=== PATIENT | female | born 1935 | race Caucasian/White ===

== ENCOUNTER 2019-01-17 15:35 | Observation (INO) | payer OTHER, SELFPAY ==
[2019-01-17] VITALS (10 sets, daily range): BP systolic 148–243; BP diastolic 56–118; PULSE 54–71; RESP 15–24; TEMP 36–36.8; O2SAT 91–100; BMI 24.7
--- NOTE | 2019-01-17 15:44 | DI.RAD.S_ITS ---
PROCEDURE: XR CHEST 1V INDICATIONS: confusion TECHNIQUE: One view of the chest was acquired. COMPARISON: None. FINDINGS: Surgical changes and devices: Median sternotomy changes are present. There also are postoperative changes related to previous proximal right humeral ORIF. Surgical clips at the base of the left neck are also present. There likely is part of replacement. Lungs and pleura: Slight blunting of the bilateral costophrenic angles is noted. There is no large effusion or pneumothorax. No large area of consolidation is evident. Mediastinum: Mediastinal contours appear normal. Heart size is enlarged. There is aortic atherosclerosis. Bones and chest wall: No suspicious bony lesions. The bone mineralization is diffusely decreased. Overlying soft tissues appear unremarkable. IMPRESSION: 1. Cardiomegaly without overt heart failure. No definite pneumonia. 2. Trace effusions versus scarring within the costophrenic angles. Dictated by: Kirill Real M.D. on 01/17/2019 at 15:27 Approved by: Kirill Real M.D. on 01/17/2019 at 15:29
--- NOTE | 2019-01-17 15:45 | DI.CT.S_ITS ---
PROCEDURE: CT ABDOMEN PELVIS W CON INDICATIONS: ab pain TECHNIQUE: After the administration of intravenous contrast, 5 mm thick sections acquired from the diaphragm to the symphysis. 5 mm coronal and sagittal reformats were acquired. For radiation dose reduction, the following was used: automated exposure control, adjustment of mA and/or kV according to patient size. COMPARISON: None. FINDINGS: Image quality: Excellent. ABDOMEN: Lung bases: Lung bases are clear. Small bilateral pleural effusions. Heart size is normal. Postsurgical changes compatible prior aortic valve replacement and CABG procedure. Solid organs: Liver is normal in size and enhancement. Gallbladder is within normal limits. Biliary system is non dilated. Pancreas enhances normally. Spleen is normal in size and enhancement. Punctate calcifications noted in the spleen and liver compatible sequela prior granulomatous disease. No adrenal nodules. Kidneys demonstrate normal size and enhancement, without hydronephrosis. Peritoneum and bowel: Large amount of stool noted in the rectum and distal sigmoid colon. There is mild circumferential wall thickening involving the rectum and distal sigmoid colon region of severe fecal loading compatible with stecoral colitis. No free fluid or air. Nodes and vessels: No retroperitoneal or mesenteric adenopathy by size criteria. Aorta and inferior vena cava are normal in size. Scattered atherosclerotic calcifications involving the abdominal and pelvic vasculature. Miscellaneous: No ventral hernias. PELVIS: Genitourinary: Bladder wall thickness is normal. Miscellaneous: No inguinal hernias or adenopathy. Bones: No suspicious bony lesions. No vertebral body compression fractures. Spine degenerative disc disease and facet arthropathy. IMPRESSION: 1. Severe fecal loading involving the rectum and distal sigmoid colon compatible with constipation/obstipation. 2. Mild circumferential wall thickening involving the rectum and distal sigmoid colon compatible with stecoral proctitis/colitis. 3. Small bilateral pleural effusions. Dictated by: Lynn Sigala MD, PhD on 01/17/2019 at 18:50 Approved by: Lynn Sigala MD, PhD on 01/17/2019 at 18:55
--- NOTE | 2019-01-17 15:45 | DI.CT.S_ITS ---
PROCEDURE: CT HEAD/BRAIN WO CON INDICATIONS: confusion hx cva TECHNIQUE: Noncontrast 4.5 mm thick angled axial sections acquired from the foramen magnum to the vertex, with coronal and sagittal reformats. For radiation dose reduction, the following was used: automated exposure control, adjustment of mA and/or kV according to patient size. COMPARISON: [facility], CT, HEAD WITHOUT CONTRAST, 09/07/2014, 11:11. FINDINGS: Image quality: Excellent. CSF spaces: Basal cisterns are patent. No extra-axial fluid collections. The ventricles are symmetric in size and shape. Brain: No intracranial bleeds or masses. There is moderate cerebral volume loss for age, with resultant ventricular and sulcal prominence. There are severe periventricular and deep white matter chronic small vessel ischemic changes. 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 There is intracranial internal carotid artery atherosclerosis. Skull and face: Calvarium and visualized facial bones appear intact, without suspicious lesions. Sinuses: Visualized sinuses and mastoids are clear. IMPRESSION: No acute intracranial disease process. Dictated by: Lynn Sigala MD, PhD on 01/17/2019 at 18:47 Approved by: Lynn Sigala MD, PhD on 01/17/2019 at 18:48
--- NOTE | 2019-01-17 16:47 | ED_ITS ---
HPI - Altered Mental Status General Chief Complaint: Altered Mental Status Stated Complaint: sepsis Time Seen by Provider: 01/17/19 15:40 Source: family and EMS History of Present Illness HPI narrative: Patient is 83-year-old female who has a history of 3 strokes and is a poor historian. She seems to be failing at. The family members and daughter have been caring for her and they have multiple health problems themselves. Today she presents with worsening confusion over the last 2 days. She is sent over from [facility] for evaluation. She has been complaining of some abdominal pain per the daughter. She has some pressure wounds and there was possible concern for sepsis however she is afebrile. She has a wound on her back which they have not gotten biopsy yet there is concern for possible cancer. She has no focal deficits. She continues to eat and drink normally no vomiting. She apparently was treated with antibiotics for wound on her back and then developed diarrhea. MD complaint: altered mental status and confusion Related Data Home Medications Medication Instructions Recorded Confirmed [HUMULIN N] 10 u SQ QDAY #0 06/01/10 12/31/18 acetaminophen 325 mg capsule 650 mg PO Q4H PRN 12/31/18 12/31/18 atenolol 50 mg tablet 50 mg PO DAILY 12/31/18 12/31/18 coenzyme Q10 10 10 mg capsule 10 mg PO ONCE 12/31/18 12/31/18 furosemide 20 mg tablet 20 mg PO DAILY 12/31/18 12/31/18 Allergies Allergy/AdvReac Type Severity Reaction Status Date / Time codeine Allergy Unknown Verified 01/17/19 16:47 Opioids - Morphine Analogues Allergy Unknown Verified 01/17/19 16:47 Review of Systems Constitutional Constitutional: Denies fever(s) Eyes Eyes: Denies eye discharge ENT Ears, Nose, Mouth, and Throat: Denies lip swelling and Denies tongue swelling Cardiovascular Cardiovascular: Denies chest pain and Denies dyspnea Respiratory Respiratory: Denies cough, Denies dyspnea and Denies wheezing Gastrointestinal Gastrointestinal: Reports abdominal pain and Reports diarrhea Genitourinary Genitourinary: Reports as per HPI Integumentary/Breasts Comments: Rash noted on pressure ulcer and in folds of the groin and breast Neurologic Neurologic: Reports as per HPI and Reports confusion Psychiatric Psychiatric: Reports confusion Allergic/Immunologic Allergic/Immunologic: Denies lip swelling, Denies tongue swelling and Denies wheezing Exam Initial Vital Signs Initial Vital Signs: Vital Signs Temperature 98.2 F 01/17/19 15:37 Pulse Rate 56 L 01/17/19 15:37 Respiratory Rate 16 01/17/19 15:37 Blood Pressure 148/90 H 01/17/19 15:37 Pulse Oximetry 100 01/17/19 15:37 Gen.: Pleasantly confused elderly female no acute distress HEENT: Head is atraumatic face symmetric EOMI Neck: Supple no meningeal signs Lungs: Clear bilaterally no wheezes rales or rhonchi Cardiac: Bradycardic irregular Abdomen: Mild lower abdominal tenderness no guarding no distention normal bowel sounds Extremities: No gross bony deformities no significant edema peripheral pulses intact Neurologic: Alert able to follow some simple commands baseline per family and fact they state this is more awake than she has been SKIN: Pressure ulcer noted on sacrum. She has use noted in. She does have area on her thoracic back which oozes blood and does appear cancerous. No surrounding erythema. Course Orders Ordered: ED Orders 01/17/19 15:41 EKG-12 Lead Stat 01/17/19 15:44 XR chest 1V Stat 01/17/19 15:45 CT abdomen pelvis w con Stat CT head/brain wo con Stat 01/17/19 15:48 Clostridium Difficile Tox PCR Stat 01/17/19 16:00 Acetaminophen Stat Ammonia (NH3) Stat Complete Blood Count AUTO DIFF Stat Comprehensive Metabolic Panel Stat Creatine Kinase Stat Ethanol (ETOH) Stat Lactate (Lactic Acid) Stat Partial Thromboplastin Time Stat Procalcitonin Stat Prolactin Stat Prothrombin Time INR Stat Salicylate Stat Thyroid Stimulating Hormone Stat Troponin I Stat 01/17/19 16:25 Urinalysis and Microscopic Stat Urine Culture Stat Urine Drug Screen, Rapid Stat 01/17/19 16:45 Blood Culture Stat 01/17/19 18:06 XR knee LT 1to2V Stat Sodium Chloride (Normal Saline 0.9%) 1,000 mls @ 150 mls/hr IV CONT CYNTHIA Last Admin: 01/17/19 17:29 Dose: 150 mls/hr Documented by: [email or web address] Vital Signs Vital signs: Vital Signs - 8 hr 01/17/19 15:37 01/17/19 16:30 01/17/19 17:30 Temperature 98.2 F Pulse Rate 56 L 66 59 L Respiratory Rate 16 16 16 Blood Pressure 148/90 H Blood Pressure [Left Arm] 189/108 H 214/96 H Pulse Oximetry 100 98 99 01/17/19 18:00 01/17/19 18:58 Temperature Pulse Rate 56 L 65 Respiratory Rate 17 16 Blood Pressure Blood Pressure [Left Arm] 217/56 H 167/90 H Pulse Oximetry 100 97 MDM - Altered Mental Status Lab Data Attestation: I reviewed the patient's lab results. Result diagrams: 01/17/19 16:00 01/17/19 16:00 Labs: Lab Results 01/17/19 01/17/19 01/17/19 Range/Units 16:00 16:00 16:00 WBC 6.6 (4.5-11.0) X10^3/uL RBC 4.42 (4.0-5.2) X10^6/uL Hgb 12.7 (12.0-16.0) g/dL Hct 38.1 (36-46) % MCV 86.2 (80-100) fL MCH 28.7 (26-34) PG MCHC 33.3 (30-36) % RDW 13.8 (11.6-14.8) % Plt Count 226 (150-400) X10^3/uL Neut % (Auto) 65.2 (50-75) % Lymph % (Auto) 23.6 L (25-40) % [place] % (Auto) 8.0 (3-14) % Eos % (Auto) 2.2 (2-4) % Baso % (Auto) 1.0 (0-2) % Neut # (Auto) 4300 (4341-3241) /uL Lymph # (Auto) 1600 (4212-2773) /uL [place] # (Auto) 500 (0-900) /uL Eos # (Auto) 100 (0-450) /uL Baso # (Auto) 100 (0-100) /uL PT 12.4 (10.1-12.7) SECONDS INR 1.1 (0.9-1.3) APTT 35 (26.4-36.2) SECONDS Sodium (137-145) mmol/L Potassium (3.4-5.1) mmol/L Chloride (98-107) mmol/L Carbon Dioxide (22-32) mmol/L BUN (7-17) mg/dL Creatinine (0.52-1.04) mg/dL Estimated GFR (>60) mL/min BUN/Creatinine Ratio (6-22) Glucose (80-110) mg/dL Lactate (0.7-2.1) mmol/L Calcium (8.4-10.2) mg/dL Total Bilirubin (0.2-1.3) mg/dL AST (14-36) IU/L ALT (9-52) IU/L Alkaline Phosphatase (38-126) U/L Ammonia (9-30) umol/L Total Creatine Kinase < 20 L (30-135) U/L Troponin I (0.01-0.034) ng/mL Total Protein (6.3-8.2) g/dL Albumin (3.5-5.0) g/dL Globulin (1.7-4.1) g/dL Albumin/Globulin Ratio (1.0-2.8) Procalcitonin (<0.5) ng/mL TSH (0.47-4.68) uIU/mL Prolactin (3.0-18.6) ng/mL Urine Color Urine Appearance Urine pH (4.5-8.0) Ur Specific [place] (1.000-1.035) Urine Protein (Negative) Urine Glucose (UA) (Negative) g/dL Urine Ketones (NEGATIVE) Urine Occult Blood (Negative) Urine Nitrate (Negative) Urine Bilirubin (NEGATIVE) Urine Urobilinogen (0.2) E.U./dL Ur Leukocyte Esterase (NEGATIVE) Urine RBC (0-5/HPF) Urine WBC (0-5/HPF) Ur Squamous Epith Cells (0-5/HPF) Urine Bacteria (None) Ur Culture Indicated? Salicylates (<20) mg/dL Urine Opiates Screen (Negative) Ur Oxycodone Screen (Negative) Urine Methadone Screen (Negative) Acetaminophen (10-30) ug/mL Ur Barbiturates Screen (Negative) U Tricyclic Antidepress (Negative) Ur Phencyclidine Scrn (Negative) Ur Amphetamines Screen (Negative) U Methamphetamines Scrn (Negative) Ur MDMA Scrn (Ecstasy) (Negative) U Benzodiazepines Scrn (Negative) Urine Cocaine Screen (Negative) U Marijuana (THC) Screen (Negative) Ethyl Alcohol ( - 10) mg/dL 01/17/19 01/17/19 01/17/19 Range/Units 16:00 16:00 16:00 WBC (4.5-11.0) X10^3/uL RBC (4.0-5.2) X10^6/uL Hgb (12.0-16.0) g/dL Hct (36-46) % MCV (80-100) fL MCH (26-34) PG MCHC (30-36) % RDW (11.6-14.8) % Plt Count (150-400) X10^3/uL Neut % (Auto) (50-75) % Lymph % (Auto) (25-40) % [place] % (Auto) (3-14) % Eos % (Auto) (2-4) % Baso % (Auto) (0-2) % Neut # (Auto) (2894-1507) /uL Lymph # (Auto) (8134-1395) /uL [place] # (Auto) (0-900) /uL Eos # (Auto) (0-450) /uL Baso # (Auto) (0-100) /uL PT (10.1-12.7) SECONDS INR (0.9-1.3) APTT (26.4-36.2) SECONDS Sodium 143 (137-145) mmol/L Potassium 4.0 (3.4-5.1) mmol/L Chloride 100 (98-107) mmol/L Carbon Dioxide 36 H (22-32) mmol/L BUN 28 H (7-17) mg/dL Creatinine 0.70 (0.52-1.04) mg/dL Estimated GFR > 60.0 (>60) mL/min BUN/Creatinine Ratio 40.0 H (6-22) Glucose 112 H (80-110) mg/dL Lactate 1.2 (0.7-2.1) mmol/L Calcium 9.6 (8.4-10.2) mg/dL Total Bilirubin 0.7 (0.2-1.3) mg/dL AST 15 (14-36) IU/L ALT < 6 L (9-52) IU/L Alkaline Phosphatase 119 (38-126) U/L Ammonia < 9.0 L (9-30) umol/L Total Creatine Kinase (30-135) U/L Troponin I 0.014 (0.01-0.034) ng/mL Total Protein 7.2 (6.3-8.2) g/dL Albumin 3.8 (3.5-5.0) g/dL Globulin 3.4 (1.7-4.1) g/dL Albumin/Globulin Ratio 1.1 (1.0-2.8) Procalcitonin (<0.5) ng/mL TSH (0.47-4.68) uIU/mL Prolactin 5.2 (3.0-18.6) ng/mL Urine Color Urine Appearance Urine pH (4.5-8.0) Ur Specific [place] (1.000-1.035) Urine Protein (Negative) Urine Glucose (UA) (Negative) g/dL Urine Ketones (NEGATIVE) Urine Occult Blood (Negative) Urine Nitrate (Negative) Urine Bilirubin (NEGATIVE) Urine Urobilinogen (0.2) E.U./dL Ur Leukocyte Esterase (NEGATIVE) Urine RBC (0-5/HPF) Urine WBC (0-5/HPF) Ur Squamous Epith Cells (0-5/HPF) Urine Bacteria (None) Ur Culture Indicated? Salicylates < 1.0 (<20) mg/dL Urine Opiates Screen (Negative) Ur Oxycodone Screen (Negative) Urine Methadone Screen (Negative) Acetaminophen < 10 L (10-30) ug/mL Ur Barbiturates Screen (Negative) U Tricyclic Antidepress (Negative) Ur Phencyclidine Scrn (Negative) Ur Amphetamines Screen (Negative) U Methamphetamines Scrn (Negative) Ur MDMA Scrn (Ecstasy) (Negative) U Benzodiazepines Scrn (Negative) Urine Cocaine Screen (Negative) U Marijuana (THC) Screen (Negative) Ethyl Alcohol < 10 ( - 10) mg/dL 01/17/19 01/17/19 01/17/19 Range/Units 16:00 16:00 16:25 WBC (4.5-11.0) X10^3/uL RBC (4.0-5.2) X10^6/uL Hgb (12.0-16.0) g/dL Hct (36-46) % MCV (80-100) fL MCH (26-34) PG MCHC (30-36) % RDW (11.6-14.8) % Plt Count (150-400) X10^3/uL Neut % (Auto) (50-75) % Lymph % (Auto) (25-40) % [place] % (Auto) (3-14) % Eos % (Auto) (2-4) % Baso % (Auto) (0-2) % Neut # (Auto) (5861-3313) /uL Lymph # (Auto) (7091-7651) /uL [place] # (Auto) (0-900) /uL Eos # (Auto) (0-450) /uL Baso # (Auto) (0-100) /uL PT (10.1-12.7) SECONDS INR (0.9-1.3) APTT (26.4-36.2) SECONDS Sodium (137-145) mmol/L Potassium (3.4-5.1) mmol/L Chloride (98-107) mmol/L Carbon Dioxide (22-32) mmol/L BUN (7-17) mg/dL Creatinine (0.52-1.04) mg/dL Estimated GFR (>60) mL/min BUN/Creatinine Ratio (6-22) Glucose (80-110) mg/dL Lactate (0.7-2.1) mmol/L Calcium (8.4-10.2) mg/dL Total Bilirubin (0.2-1.3) mg/dL AST (14-36) IU/L ALT (9-52) IU/L Alkaline Phosphatase (38-126) U/L Ammonia (9-30) umol/L Total Creatine Kinase (30-135) U/L Troponin I (0.01-0.034) ng/mL Total Protein (6.3-8.2) g/dL Albumin (3.5-5.0) g/dL Globulin (1.7-4.1) g/dL Albumin/Globulin Ratio (1.0-2.8) Procalcitonin < 0.05 (<0.5) ng/mL TSH 0.74 (0.47-4.68) uIU/mL Prolactin (3.0-18.6) ng/mL Urine Color Urine Appearance Urine pH (4.5-8.0) Ur Specific [place] (1.000-1.035) Urine Protein (Negative) Urine Glucose (UA) (Negative) g/dL Urine Ketones (NEGATIVE) Urine Occult Blood (Negative) Urine Nitrate (Negative) Urine Bilirubin (NEGATIVE) Urine Urobilinogen (0.2) E.U./dL Ur Leukocyte Esterase (NEGATIVE) Urine RBC (0-5/HPF) Urine WBC (0-5/HPF) Ur Squamous Epith Cells (0-5/HPF) Urine Bacteria (None) Ur Culture Indicated? Salicylates (<20) mg/dL Urine Opiates Screen Negative (Negative) Ur Oxycodone Screen Negative (Negative) Urine Methadone Screen Negative (Negative) Acetaminophen (10-30) ug/mL Ur Barbiturates Screen Negative (Negative) U Tricyclic Antidepress Negative (Negative) Ur Phencyclidine Scrn Negative (Negative) Ur Amphetamines Screen Negative (Negative) U Methamphetamines Scrn Negative (Negative) Ur MDMA Scrn (Ecstasy) Negative (Negative) U Benzodiazepines Scrn Negative (Negative) Urine Cocaine Screen Negative (Negative) U Marijuana (THC) Screen Negative (Negative) Ethyl Alcohol ( - 10) mg/dL 01/17/19 Range/Units 16:25 WBC (4.5-11.0) X10^3/uL RBC (4.0-5.2) X10^6/uL Hgb (12.0-16.0) g/dL Hct (36-46) % MCV (80-100) fL MCH (26-34) PG MCHC (30-36) % RDW (11.6-14.8) % Plt Count (150-400) X10^3/uL Neut % (Auto) (50-75) % Lymph % (Auto) (25-40) % [place] % (Auto) (3-14) % Eos % (Auto) (2-4) % Baso % (Auto) (0-2) % Neut # (Auto) (1218-7091) /uL Lymph # (Auto) (9821-9845) /uL [place] # (Auto) (0-900) /uL Eos # (Auto) (0-450) /uL Baso # (Auto) (0-100) /uL PT (10.1-12.7) SECONDS INR (0.9-1.3) APTT (26.4-36.2) SECONDS Sodium (137-145) mmol/L Potassium (3.4-5.1) mmol/L Chloride (98-107) mmol/L Carbon Dioxide (22-32) mmol/L BUN (7-17) mg/dL Creatinine (0.52-1.04) mg/dL Estimated GFR (>60) mL/min BUN/Creatinine Ratio (6-22) Glucose (80-110) mg/dL Lactate (0.7-2.1) mmol/L Calcium (8.4-10.2) mg/dL Total Bilirubin (0.2-1.3) mg/dL AST (14-36) IU/L ALT (9-52) IU/L Alkaline Phosphatase (38-126) U/L Ammonia (9-30) umol/L Total Creatine Kinase (30-135) U/L Troponin I (0.01-0.034) ng/mL Total Protein (6.3-8.2) g/dL Albumin (3.5-5.0) g/dL Globulin (1.7-4.1) g/dL Albumin/Globulin Ratio (1.0-2.8) Procalcitonin (<0.5) ng/mL TSH (0.47-4.68) uIU/mL Prolactin (3.0-18.6) ng/mL Urine Color Yellow Urine Appearance Clear Urine pH 5.5 (4.5-8.0) Ur Specific [place] 1.020 (1.000-1.035) Urine Protein Trace H (Negative) Urine Glucose (UA) Negative (Negative) g/dL Urine Ketones Negative (NEGATIVE) Urine Occult Blood Negative (Negative) Urine Nitrate Negative (Negative) Urine Bilirubin Negative (NEGATIVE) Urine Urobilinogen 0.2 (0.2) E.U./dL Ur Leukocyte Esterase Negative (NEGATIVE) Urine RBC None seen (0-5/HPF) Urine WBC None seen (0-5/HPF) Ur Squamous Epith Cells 0-1 /hpf (0-5/HPF) Urine Bacteria None seen (None) Ur Culture Indicated? Culture not indicate Salicylates (<20) mg/dL Urine Opiates Screen (Negative) Ur Oxycodone Screen (Negative) Urine Methadone Screen (Negative) Acetaminophen (10-30) ug/mL Ur Barbiturates Screen (Negative) U Tricyclic Antidepress (Negative) Ur Phencyclidine Scrn (Negative) Ur Amphetamines Screen (Negative) U Methamphetamines Scrn (Negative) Ur MDMA Scrn (Ecstasy) (Negative) U Benzodiazepines Scrn (Negative) Urine Cocaine Screen (Negative) U Marijuana (THC) Screen (Negative) Ethyl Alcohol ( - 10) mg/dL Imaging Data CT scan - head: Radiologist's impression: PROCEDURE: CT HEAD/BRAIN WO CON INDICATIONS: confusion hx cva TECHNIQUE: Noncontrast 4.5 mm thick angled axial sections acquired from the foramen magnum to the vertex, with coronal and sagittal reformats. For radiation dose reduction, the following was used: automated exposure control, adjustment of mA and/or kV according to patient size. COMPARISON: [facility], CT, HEAD WITHOUT CONTRAST, 09/07/2014, 11:11. FINDINGS: Image quality: Excellent. CSF spaces: Basal cisterns are patent. No extra-axial fluid collections. The ventricles are symmetric in size and shape. Brain: No intracranial bleeds or masses. There is moderate cerebral volume loss for age, with resultant ventricular and sulcal prominence. There are severe periventricular and deep white matter chronic small vessel ischemic changes. 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 There is intracranial internal carotid artery atherosclerosis. Skull and face: Calvarium and visualized facial bones appear intact, without suspicious lesions. Sinuses: Visualized sinuses and mastoids are clear. IMPRESSION: No acute intracranial disease process. Dictated by: Lynn Sigala MD, PhD on 01/17/2019 at 18:47 CT scan - abdomen: Radiologist's impression: PROCEDURE: CT ABDOMEN PELVIS W CON INDICATIONS: ab pain TECHNIQUE: After the administration of intravenous contrast, 5 mm thick sections acquired from the diaphragm to the symphysis. 5 mm coronal and sagittal reformats were acquired. For radiation dose reduction, the following was used: automated exposure control, adjustment of mA and/or kV according to patient size. COMPARISON: None. FINDINGS: Image quality: Excellent. ABDOMEN: Lung bases: Lung bases are clear. Small bilateral pleural effusions. Heart size is normal. Postsurgical changes compatible prior aortic valve replacement and CABG procedure. Solid organs: Liver is normal in size and enhancement. Gallbladder is within normal limits. Biliary system is non dilated. Pancreas enhances normally. Spleen is normal in size and enhancement. Punctate calcifications noted in the spleen and liver compatible sequela prior granulomatous disease. No adrenal nodules. Kidneys demonstrate normal size and enhancement, without hydronephrosis. Peritoneum and bowel: Large amount of stool noted in the rectum and distal sigmoid colon. There is mild circumferential wall thickening involving the rectum and distal sigmoid colon region of severe fecal loading compatible with stecoral colitis. No free fluid or air. Nodes and vessels: No retroperitoneal or mesenteric adenopathy by size criteria. Aorta and inferior vena cava are normal in size. Scattered atherosclerotic calcificati ons involving the abdominal and pelvic vasculature. Miscellaneous: No ventral hernias. PELVIS: Genitourinary: Bladder wall thickness is normal. Miscellaneous: No inguinal hernias or adenopathy. Bones: No suspicious bony lesions. No vertebral body compression fractures. Spine degenerative disc disease and facet arthropathy. IMPRESSION: 1. Severe fecal loading involving the rectum and distal sigmoid colon compatible with constipation/obstipation. 2. Mild circumferential wall thickening involving the rectum and distal sigmoid colon compatible with stecoral proctitis/colitis. 3. Small bilateral pleural effusions. Dictated by: Lynn Sigala MD, PhD on 01/17/2019 at 18:50 Chest x-ray: Radiologist's impression: PROCEDURE: XR CHEST 1V INDICATIONS: confusion TECHNIQUE: One view of the chest was acquired. COMPARISON: None. FINDINGS: Surgical changes and devices: Median sternotomy changes are present. There also are postoperative changes related to previous proximal right humeral ORIF. Surgical clips at the base of the left neck are also present. There likely is part of replacement. Lungs and pleura: Slight blunting of the bilateral costophrenic angles is noted. There is no large effusion or pneumothorax. No large area of consolidation is ev ident. Mediastinum: Mediastinal contours appear normal. Heart size is enlarged. There is aortic atherosclerosis. Bones and chest wall: No suspicious bony lesions. The bone mineralization is diffusely decreased. Overlying soft tissues appear unremarkable. IMPRESSION: 1. Cardiomegaly without overt heart failure. No definite pneumonia. 2. Trace effusions versus scarring within the costophrenic angles. Dictated by: Kirill Real M.D. on 01/17/2019 at 15:27 left knee: Radiologist's impression: PROCEDURE: XR KNEE LT 2V INDICATIONS: knee injury TECHNIQUE: 2 views of the knee were acquired. COMPARISON: None. FINDINGS: Bones: No fractures or dislocations. No suspicious bony lesions. Severe tricompartmental osteoarthritis. Soft tissues: No joint effusion. No suspicious soft tissue calcifications. IMPRESSION: No fracture. No acute osseous lesion. If symptoms and/or clinical suspicion for pathology persists, further assessment with repeat radiographs (7-10 days) or advanced imaging (e.g. CT, MRI or bone scan) may be helpful. Dictated by: Lynn Sigala MD, PhD on 01/17/2019 at 19:09 Approved by: Lynn Sigala MD, PhD on 01/17/2019 at 19:10 ECG Data Attestation: I personally reviewed and interpreted this ECG as follows: Interpretation: In bradycardia atrial fibrillation rate [address] changes MDM Narrative Medical decision making narrative: I have spoken with the nurse [facility] over on work assignment. They arranged for [facility] ambulance transport from [facility] to [facility] for patient to be admitted for 3 days and have long-term stay. Patient is not a direct admit. However she feels that family is equipped to care for patient any longer. They have their own health problems. At this time patient blood work and imaging does not show any acute source of worsening confusion. She seems to be okay in the emergency department. She is not toxic does not seem septic. No source or sign of infection. She does have a wound on her back which is likely cancerous. However due to her groin and yeast infection daughter states that no one is willing to biopsy a until the infection is totally cleared. The patient is overall extremely weak family unable to care for patient I spoke with hospitalist Pradeep KNIGHT who has agreed to observation. There was concern of possible C diff due to recent antibiotic and diarrhea however patient in 3 hours has not had 1 episode of diarrhea. Still awaiting for stool sample to culture. Discharge Plan Departure Patient Disposition: Admitted as Observation Clinical Impression: Altered mental status Qualifiers: Altered mental status type: unspecified Qualified Code(s): R41.82 - Altered mental status, unspecified Admit Date/Time: 01/17/19 19:18 Admit Provider: Tobias Fernández
--- NOTE | 2019-01-17 16:52 | PC.NURSE ---
1540 Contact enteric precautions initiated at this time.
--- NOTE | 2019-01-17 16:53 | PC.NURSE ---
Tina care performed, briefs changed.
[2019-01-17 16:55] LABS: Add Manual Diff / Slide Review NO; Basophils Absolute Auto 100 /uL (0-100); Eosinophils Absolute Auto 100 /uL (0-450); Eosinophils Percent Auto 2.2 % (2-4); Hematocrit 38.1 % (36-46); Hemoglobin 12.7 g/dL (12.0-16.0); Lymphocytes Absolute Auto 1600 /uL (1100-4500); Lymphocytes Percent Auto 23.6 % (25-40); Mean Corpuscular HGB Conc 33.3 % (30-36); Mean Corpuscular Hemoglobin 28.7 PG (26-34); Mean Corpuscular Volume 86.2 fL (80-100); Monocytes Absolute Auto 500 /uL (0-900); Neutrophils Absolute Auto 4300 /uL (1500-7000); Neutrophils Percent Auto 65.2 % (50-75); Platelet Count 226 X10^3/uL (150-400); Red Blood Cell Count 4.42 X10^6/uL (4.0-5.2); Red Cell Distribution Width 13.8 % (11.6-14.8); White Blood Cell Count 6.6 X10^3/uL (4.5-11.0)
[2019-01-17 16:56] LABS: INR 1.1 (0.9-1.3); Lactate (Lactic Acid) 1.2 mmol/L (0.7-2.1); Prothrombin Time 12.4 SECONDS (10.1-12.7)
[2019-01-17 16:56] LABS: Bacteria Urine None Seen; RBC Urine None Seen (0-5/HPF); WBC Urine None Seen (0-5/HPF)
[2019-01-17 16:58] LABS: Acetaminophen < 10 ug/mL (10-30); Albumin 3.8 g/dL (3.5-5.0); Albumin Globulin Ratio 1.1 (1.0-2.8); Alkaline Phosphatase 119 U/L (38-126); Ammonia (NH3) < 9.0 umol/L (9-30); Aspartate Aminotransferase 15 IU/L (14-36); Bilirubin Total 0.7 mg/dL (0.2-1.3); Blood Urea Nitrogen 28 mg/dL (7-17); Calcium 9.6 mg/dL (8.4-10.2); Carbon Dioxide 36 mmol/L (22-32); Chloride 100 mmol/L (98-107); Estimated Glomerular Filt Rate > 60.0 mL/min (>60); Ethanol (ETOH) < 10 mg/dL; Globulin 3.4 g/dL (1.7-4.1); Glucose 112 mg/dL (80-110); HEMOLYSIS < 15 (0-50); Salicylate < 1.0 mg/dL (<20); Sodium 143 mmol/L (137-145); Total Protein 7.2 g/dL (6.3-8.2)
[2019-01-17 16:59] LABS: PTT Partial Thromboplastin Tim 35 SECONDS (26.4-36.2)
[2019-01-17 17:04] LABS: Alanine Aminotransferase < 6 IU/L (9-52)
[2019-01-17 17:09] LABS: Troponin I 0.014 ng/mL (0.01-0.034)
[2019-01-17 17:10] LABS: Appearance Urine UA CLEAR; Bilirubin Urine UA NEGATIVE (NEGATIVE); Color Urine UA YELLOW; Glucose Urine UA NEGATIVE (Negative); Ketones Urine UA NEGATIVE (NEGATIVE); Leukocyte Esterase Urine UA NEGATIVE (NEGATIVE); Nitrite Urine UA NEGATIVE (Negative); Occult Blood Urine UA NEGATIVE (Negative); Protein Urine UA TRACE (Negative); Urobilinogen Urine UA 0.2 E.U./dL (0.2)
[2019-01-17 17:14] LABS: Urine Amphetamines Negative (Negative); Urine Barbiturates Negative (Negative); Urine Benzodiazepines Negative (Negative); Urine Cocaine Negative (Negative); Urine MDMA Negative (Negative); Urine Methadone Negative (Negative); Urine Methamphetamines Negative (Negative); Urine Morphine/Opi cutoff 2000 Negative (Negative); Urine Oxycodone Negative (Negative); Urine Phencyclidine Negative (Negative); Urine Tetrahydrocannabinol Negative (Negative); Urine Tricyclic Antidepressant Negative (Negative); pH Urine UA 5.5 (4.5-8.0)
[2019-01-17 17:14] LABS: Prolactin 5.2 ng/mL (3.0-18.6)
[2019-01-17] MEDS: SODIUM CHLORIDE 0.9% 1,000 ML 150 ML IV (17:29)
[2019-01-17 17:40] LABS: Creatine Kinase < 20 U/L (30-135)
[2019-01-17 17:59] LABS: Squamous Epithelial Cell Urine 0-1 /HPF (0-5/HPF)
--- NOTE | 2019-01-17 18:06 | DI.RAD.S_ITS ---
PROCEDURE: XR KNEE LT 2V INDICATIONS: knee injury TECHNIQUE: 2 views of the knee were acquired. COMPARISON: None. FINDINGS: Bones: No fractures or dislocations. No suspicious bony lesions. Severe tricompartmental osteoarthritis. Soft tissues: No joint effusion. No suspicious soft tissue calcifications. IMPRESSION: No fracture. No acute osseous lesion. If symptoms and/or clinical suspicion for pathology persists, further assessment with repeat radiographs (7-10 days) or advanced imaging (e.g. CT, MRI or bone scan) may be helpful. Dictated by: Lynn Sigala MD, PhD on 01/17/2019 at 19:09 Approved by: Lynn Sigala MD, PhD on 01/17/2019 at 19:10
[2019-01-17 18:09] LABS: Procalcitonin < 0.05 ng/mL (<0.5)
[2019-01-17 18:12] LABS: Thyroid Stimulating Hormone 0.74 uIU/mL (0.47-4.68)
[2019-01-17] MEDS: MINERAL OIL 1 EACH ENEMA PR (20:42)
[2019-01-17] MEDS: DOCUSATE 100 MG CAPSULE PO (20:42)
--- NOTE | 2019-01-17 21:25 | PC.ADMIT ---
Admission Note: The patient,Mary Casiano,83 y/o, was given written information regarding hospital policies, unit procedures and contact persons. Patient's smoking status: Never smoker. Vital Signs - 8 hr 01/17/19 15:37 01/17/19 16:30 01/17/19 17:30 Temperature 98.2 F Pulse Rate 56 L 66 59 L Respiratory Rate 16 16 16 Blood Pressure 148/90 H Blood Pressure [Left Arm] 189/108 H 214/96 H Pulse Oximetry 100 98 99 01/17/19 18:00 01/17/19 18:58 01/17/19 19:40 Temperature Pulse Rate 56 L 65 54 L Respiratory Rate 17 16 16 Blood Pressure 167/79 H Blood Pressure [Left Arm] 217/56 H 167/90 H Pulse Oximetry 100 97 99 01/17/19 20:33 Temperature 96.8 F L Pulse Rate 68 Respiratory Rate 17 Blood Pressure 243/95 H Blood Pressure [Left Arm] Pulse Oximetry 94 Pt arrived from ED via stretcher at approx 2000, sliderboard used to trans to bed. Pt oriented to self and hospital. Reports her arms hurt when BP cuff is inflated. BP on monitor elevated at 243/95. Unable to obtain manual BP. Draining Lesion to back noted, photos taken and Foam drsg applied. Rash to Groin, periarea, gluteal cleft and lower back noted. Provider away of all findings. Brief changed, enema given. Bed alarm on. Oriented to call system. Door open for close monitoring. Dtr to return to help with admission questions.
[2019-01-17] MEDS: SODIUM CHLORIDE 0.45% 1,000 ML 50 ML IV (22:14)
[2019-01-17] MEDS: LISINOPRIL 10 MG TABLET PO (22:14)
--- NOTE | 2019-01-17 23:09 | DI.CT.S_ITS ---
PROCEDURE: CT ANGIO HEAD AND NECK INDICATIONS: Altered mental status, prior CVA TECHNIQUE: Pre-contrast 4.5 mm thick sections acquired from the foramen magnum to the vertex. After the administration of intravenous contrast, 1 mm thick sections acquired from the aortic arch through the [place] of [place]. Post-contrast 4.5 mm thick sections then re-acquired from the foramen magnum to the vertex. 3-dimensional lbxccfq-xjrllyuzi-peofugkceh (MIP) and/or volume rendering reformats were acquired of the central intracranial vasculature and neck separately. COMPARISON: None. FINDINGS: Image quality: Excellent. BRAIN: CSF spaces: Ventricles are normal in size and shape. Basal cisterns are patent. No extra-axial fluid collections. Brain: No midline shift. No intracranial bleeds or masses. [place]-white matter interface appears intact. Scattered small white matter signal changes, probably represent chronic microvascular ischemic disease, versus statistically less likely demyelination or other infectious, inflammatory, neurodegenerative etiology, technically nonspecific. Skull and face: Calvarium and facial bones appear intact, without suspicious lesions. Orbits appear normal. Sinuses: Sinuses and mastoids are clear. HEAD CT ANGIOGRAPHY: Anterior circulation: Intracranial internal carotid arteries are normal in size and flow. The flow within the paired anterior cerebral arteries is normal and symmetric. Hypoplastic left A1 segment. The flow within the middle cerebral arteries is normal and symmetric. The anterior communicating artery is seen. No aneurysms are seen. Posterior circulation: Visualized portions of the vertebral arteries and basilar artery appear patent. Bilateral posterior communicating artery as noted. Flow within the posterior cerebral arteries is normal and symmetric. No aneurysms are seen. NECK CT ANGIOGRAPHY: Carotid system: The great vessels demonstrate a conventional anatomy as they arise from the aortic arch. The origins of the common carotid arteries appear patent. The common carotid arteries demonstrate normal caliber and courses. Numerous surgical clips in the region of the left ICA which partially obscure the vessel. There appears to be approximately 50% narrowing of the proximal left ICA however this is partially obscured by streak artifact from clips. 50% right ICA stenosis. Right carotid atherosclerosis Posterior circulation: The origins of the vertebral arteries both appear widely patent. Vertebral arteries appear patent. Mildly dominant appearance of the right vertebral artery. They join to form a normal appearing basilar artery. Soft tissues: Visualized neck soft tissues demonstrate no suspicious abnormalities. Bones: No suspicious bony lesions. Visualized cervical spine appears normally aligned. IMPRESSION: No definite focal intracranial stenosis or occlusion. Less than 50% right ICA stenosis which could be further confirmed with dedicated carotid ultrasound. Suboptimal evaluation of the left ICA. There appears to be at least 50% focal stenosis involving the proximal segment, partially obscured by streak artifact from clips. Any quantitative measurements of stenosis were performed using NASCET criteria. Dictated by: Kamron Warren M.D. on 01/18/2019 at 21:16 Approved by: Kamron Warren M.D. on 01/18/2019 at 21:25
--- NOTE | 2019-01-17 23:10 | PM.HP.1 ---
History of Present Illness History of Present Illness Date Patient Seen: 01/17/19 Time Patient Seen: 20:16 Chief complaint: sepsis Narrative: Ms. Mary Casiano is an 83-year-old female with a history significant for atrial fibrillation, hypertension, type 2 diabetes on insulin, history of polio, prior CVA and malignant melanoma who presents to the hospital with altered mental status. History is obtained from the patient's daughters the patient is unable to contribute meaningful information and is oriented to self only. Per the daughter the patient had rather abrupt change in her health and mental status 3 days ago. The daughter describes increased confusion with hallucinations, weakness, labile blood pressure that has been markedly elevated and slow heart rate down as low as the 40s. The daughter is concerned related to sepsis and concern for possible C difficile since the patient has been having diarrhea and was on antibiotic 1 month ago for what appears to be a cancerous skin lesion on her back. Patient lives at with her and the daughter providing care and has previously been on hospice apparently related to deteriorating cardiac status but she improved is now receiving care from [facility] 2 times weekly. The patient does complain of a frontal headache and has pain over left upper back the location of her skin lesion. She denies fevers or chills, chest pain, shortness of breath, abdominal pain, nausea vomiting. The patient has been essentially bed-bound per the daughter and over the last 3 days has been nonambulatory. In the ER upon arrival the patient is found to be afebrile with temperature of 98.2?, blood pressure 148/90, heart rate of 56 in atrial fibrillation with respirations 16 saturating 100% on air. While in the ER the patient has had labile blood pressures up to 214/97 returning back to the 160s. Patient underwent a head CT which found no acute intracranial processes S well as an abdominal CT which found severe constipation with obstipation proctitis colitis. Chest x-ray was obtained which found cardiomyopathy without evidence pulmonary congestion or heart failure with no infiltrates. EKG is atrial fibrillation with a ventricular rate of 52 marked left axis deviation, left ventricular hypertrophy, with Q-waves in the anterior V leads as well as his 3 nerve consistent with anterior and inferior [place]. The patient does appear to have mild ST to depression in V5 and 6. On laboratory analysis she has normal white count 6.6, hemoglobin of 12.5 and hematocrit 38.1 and platelets of 226. Her electrolytes are within normal rib limits however her BUN is 28 with a creatinine 0.7 nonfasting glucose 112. Her coags within normal limits and urinalysis negative she has a negative procalcitonin less than 0.05 and a lactate of 1.2. She has a troponin of 0.014 and a normal TSH of 0.74. Her LFTs and ammonia are all within normal limits. The patient is admitted for further evaluation of altered mental status. Patient History Medical History (Updated 01/17/19 @ 23:31 by ANTONIA Alfonso) Diabetes (Chronic) HTN (hypertension) (Chronic) Melanoma (Acute) Polio (Acute) Stroke (Resolved) Surgical History (Updated 01/17/19 @ 23:31 by ANTONIA Alfonso) Heart valve replaced (Acute) History of carotid endarterectomy (Resolved) Hx of eye surgery (Resolved) Hx of heart bypass surgery (Resolved) Hx of shoulder surgery (Resolved) Family History Mother Cancer Father No problems noted. Sister No problems noted. Social History marital status: household members: spouse occupational status: previously employed Smoking Status: Never smoker alcohol intake: never substance use type: does not use Family & Social History Family History Mother Cancer Father No problems noted. Sister No problems noted. Social History: household members spouse Safety & Behavioral: Feels Safe in Current Yes Environment Been Physically Hurt or No Threatened By a Person Suicidal Ideation Description None Tobacco & Substance use: Smoking Status Never smoker alcohol intake never alcohol intake frequency 0-2 drinks per day Substance Use Type does not use Comment: The patient currently lives in a single family 2 story home with her who is her primary caregiver with assistance from his daughter and home health 2 days per week. Smoking: Patient has never smoked Alcohol: Patient has never consumed alcohol. Substance use: Patient use only vitamin supplements. Advanced directives: The daughter believes advanced directives are on file with the patient's primary care physician. The patient is altered to the extent she is not able to make decisions on her resuscitation status therefore her daughter who is her designated spokesperson indicates the patient's wish is to be FULL CODE. Patient's daughter and her are surrogate decision makers. Meds Home Medications and Allergies Home Medications Medication Instructions Recorded Confirmed Type [HUMULIN N] 10 u SQ QDAY #0 06/01/10 01/17/19 History acetaminophen 325 mg capsule 650 mg PO Q4H PRN 12/31/18 01/17/19 History atenolol 50 mg tablet 50 mg PO DAILY 12/31/18 01/17/19 History coenzyme Q10 10 10 mg capsule 10 mg PO ONCE 12/31/18 01/17/19 History furosemide 20 mg tablet 20 mg PO DAILY 12/31/18 01/17/19 History Allergies Allergy/AdvReac Type Severity Reaction Status Date / Time codeine Allergy Unknown Verified 01/17/19 16:47 Opioids - Morphine Analogues Allergy Unknown Verified 01/17/19 16:47 Review of Systems Review of Systems ROS Unobtainable: All systems reviewed & are unremarkable except as noted in HPI and below and unobtainable due to mental status (Patient's daughter provides health information) Exam Vital Signs (past 8 hours): - 01/17/19 15:37 01/17/19 16:30 01/17/19 17:30 Temperature 98.2 F Pulse Rate 56 L 66 59 L Respiratory Rate 16 16 16 Blood Pressure 148/90 H Blood Pressure [Left Arm] 189/108 H 214/96 H Pulse Oximetry 100 98 99 01/17/19 18:00 01/17/19 18:58 01/17/19 19:40 Temperature Pulse Rate 56 L 65 54 L Respiratory Rate 17 16 16 Blood Pressure 167/79 H Blood Pressure [Left Arm] 217/56 H 167/90 H Pulse Oximetry 100 97 99 01/17/19 20:33 01/17/19 21:42 01/17/19 22:01 Temperature 96.8 F L Pulse Rate 68 71 Respiratory Rate 17 16 Blood Pressure 243/95 H 208/118 H Blood Pressure [Left Arm] Pulse Oximetry 94 93 99 Oxygen Delivery Method Room Air Oxygen Flow Rate 0 Narrative Exam Narrative: GENERAL APPEARANCE: well developed, adequately nourished, verbal impoverished, flat affect, in no distress HEENT: Left facial droop, PERRLA, conjunctiva clear, EOMs intact without nystagmus, no sinus tenderness to percussion, no rhinorrhea, mucous membranes are moist and pink without lesions or exudate. NECK/THYROID: neck supple, no JVD, no carotid bruit, no thyromegaly, trachea midline. LYMPH NODES: no cervical or supraclavicular lymphadenopathy. SKIN: [place] warm and dry, 2.5 cm beefy red and oozing skin mass left upper back, 1 cm lesion mid chest, 1 cm keratotic lesion right thigh. HEART: regular rate and rhythm, S1-S2, 3/6 systolic murmur, brisk capillary refill, trace bilateral pedal edema LUNGS: clear to auscultation bilaterally, no coarseness crackles or wheezing, no cough present CHEST: Symmetrical movement, no accessory muscle use, no pain to AP and lateral compression. ABDOMEN: round, firm, no abdominal pain elicited on palpation, no guarding or peritoneal signs, no organomegaly, no flank or suprapubic tenderness, active bowel tones. BACK: 2.5 cm beefy red oozing skin lesion left upper back, tender to palpation EXTREMITIES: strength is 3/5 bilateral upper extremities and 2/5 bilateral lower extremities and appears symmetrical, no deformities or joint effusions. NEUROLOGIC: AAO to self only, left facial droop, unable to hold either leg up, slow movement of upper extremities, vision tracks bilaterally, no apparent dysarthria, difficulty following commands, sensory exam intact. PSYCH: Somnolent, impoverished speech, poor eye contact, flat affect Objective Labs Result Diagrams: 01/17/19 16:00 01/17/19 16:00 Labs: Laboratory Results - last 24 hr 01/17/19 01/17/19 01/17/19 16:00 16:00 16:00 WBC 6.6 RBC 4.42 Hgb 12.7 Hct 38.1 MCV 86.2 MCH 28.7 MCHC 33.3 RDW 13.8 Plt Count 226 Neut % (Auto) 65.2 Lymph % (Auto) 23.6 L [place] % (Auto) 8.0 Eos % (Auto) 2.2 Baso % (Auto) 1.0 Neut # (Auto) 4300 Lymph # (Auto) 1600 [place] # (Auto) 500 Eos # (Auto) 100 Baso # (Auto) 100 PT 12.4 INR 1.1 APTT 35 Sodium Potassium Chloride Carbon Dioxide BUN Creatinine Estimated GFR BUN/Creatinine Ratio Glucose Lactate Calcium Total Bilirubin AST ALT Alkaline Phosphatase Ammonia Total Creatine Kinase < 20 L Troponin I Total Protein Albumin Globulin Albumin/Globulin Ratio Procalcitonin TSH Prolactin Urine Color Urine Appearance Urine pH Ur Specific [place] Urine Protein Urine Glucose (UA) Urine Ketones Urine Occult Blood Urine Nitrate Urine Bilirubin Urine Urobilinogen Ur Leukocyte Esterase Urine RBC Urine WBC Ur Squamous Epith Cells Urine Bacteria Ur Culture Indicated? Salicylates Urine Opiates Screen Ur Oxycodone Screen Urine Methadone Screen Acetaminophen Ur Barbiturates Screen U Tricyclic Antidepress Ur Phencyclidine Scrn Ur Amphetamines Screen U Methamphetamines Scrn Ur MDMA Scrn (Ecstasy) U Benzodiazepines Scrn Urine Cocaine Screen U Marijuana (THC) Screen Ethyl Alcohol 01/17/19 01/17/19 01/17/19 16:00 16:00 16:00 WBC RBC Hgb Hct MCV MCH MCHC RDW Plt Count Neut % (Auto) Lymph % (Auto) [place] % (Auto) Eos % (Auto) Baso % (Auto) Neut # (Auto) Lymph # (Auto) [place] # (Auto) Eos # (Auto) Baso # (Auto) PT INR APTT Sodium 143 Potassium 4.0 Chloride 100 Carbon Dioxide 36 H BUN 28 H Creatinine 0.70 Estimated GFR > 60.0 BUN/Creatinine Ratio 40.0 H Glucose 112 H Lactate 1.2 Calcium 9.6 Total Bilirubin 0.7 AST 15 ALT < 6 L Alkaline Phosphatase 119 Ammonia < 9.0 L Total Creatine Kinase Troponin I 0.014 Total Protein 7.2 Albumin 3.8 Globulin 3.4 Albumin/Globulin Ratio 1.1 Procalcitonin TSH Prolactin 5.2 Urine Color Urine Appearance Urine pH Ur Specific [place] Urine Protein Urine Glucose (UA) Urine Ketones Urine Occult Blood Urine Nitrate Urine Bilirubin Urine Urobilinogen Ur Leukocyte Esterase Urine RBC Urine WBC Ur Squamous Epith Cells Urine Bacteria Ur Culture Indicated? Salicylates < 1.0 Urine Opiates Screen Ur Oxycodone Screen Urine Methadone Screen Acetaminophen < 10 L Ur Barbiturates Screen U Tricyclic Antidepress Ur Phencyclidine Scrn Ur Amphetamines Screen U Methamphetamines Scrn Ur MDMA Scrn (Ecstasy) U Benzodiazepines Scrn Urine Cocaine Screen U Marijuana (THC) Screen Ethyl Alcohol < 10 01/17/19 01/17/19 01/17/19 16:00 16:00 16:25 WBC RBC Hgb Hct MCV MCH MCHC RDW Plt Count Neut % (Auto) Lymph % (Auto) [place] % (Auto) Eos % (Auto) Baso % (Auto) Neut # (Auto) Lymph # (Auto) [place] # (Auto) Eos # (Auto) Baso # (Auto) PT INR APTT Sodium Potassium Chloride Carbon Dioxide BUN Creatinine Estimated GFR BUN/Creatinine Ratio Glucose Lactate Calcium Total Bilirubin AST ALT Alkaline Phosphatase Ammonia Total Creatine Kinase Troponin I Total Protein Albumin Globulin Albumin/Globulin Ratio Procalcitonin < 0.05 TSH 0.74 Prolactin Urine Color Urine Appearance Urine pH Ur Specific [place] Urine Protein Urine Glucose (UA) Urine Ketones Urine Occult Blood Urine Nitrate Urine Bilirubin Urine Urobilinogen Ur Leukocyte Esterase Urine RBC Urine WBC Ur Squamous Epith Cells Urine Bacteria Ur Culture Indicated? Salicylates Urine Opiates Screen Negative Ur Oxycodone Screen Negative Urine Methadone Screen Negative Acetaminophen Ur Barbiturates Screen Negative U Tricyclic Antidepress Negative Ur Phencyclidine Scrn Negative Ur Amphetamines Screen Negative U Methamphetamines Scrn Negative Ur MDMA Scrn (Ecstasy) Negative U Benzodiazepines Scrn Negative Urine Cocaine Screen Negative U Marijuana (THC) Screen Negative Ethyl Alcohol 01/17/19 16:25 WBC RBC Hgb Hct MCV MCH MCHC RDW Plt Count Neut % (Auto) Lymph % (Auto) [place] % (Auto) Eos % (Auto) Baso % (Auto) Neut # (Auto) Lymph # (Auto) [place] # (Auto) Eos # (Auto) Baso # (Auto) PT INR APTT Sodium Potassium Chloride Carbon Dioxide BUN Creatinine Estimated GFR BUN/Creatinine Ratio Glucose Lactate Calcium Total Bilirubin AST ALT Alkaline Phosphatase Ammonia Total Creatine Kinase Troponin I Total Protein Albumin Globulin Albumin/Globulin Ratio Procalcitonin TSH Prolactin Urine Color Yellow Urine Appearance Clear Urine pH 5.5 Ur Specific [place] 1.020 Urine Protein Trace H Urine Glucose (UA) Negative Urine Ketones Negative Urine Occult Blood Negative Urine Nitrate Negative Urine Bilirubin Negative Urine Urobilinogen 0.2 Ur Leukocyte Esterase Negative Urine RBC None seen Urine WBC None seen Ur Squamous Epith Cells 0-1 /hpf Urine Bacteria None seen Ur Culture Indicated? Culture not indicate Salicylates Urine Opiates Screen Ur Oxycodone Screen Urine Methadone Screen Acetaminophen Ur Barbiturates Screen U Tricyclic Antidepress Ur Phencyclidine Scrn Ur Amphetamines Screen U Methamphetamines Scrn Ur MDMA Scrn (Ecstasy) U Benzodiazepines Scrn Urine Cocaine Screen U Marijuana (THC) Screen Ethyl Alcohol Assessment & Plan Assessment & Plan narrative: This is an 83-year-old female patient who was admitted to the hospital related to altered mental status occurring over the last 3 days with confusion, disorientation and hallucinations, progressive weakness, labile blood pressure with pressures up into 200s, atrial fibrillation with heart rate. 1. Acute altered mental status, present on admission, active -multiple potential etiologies, differential diagnosis: -history prior CVA, left facial droop, unclear if new versus residual from prior CVA. Patient complains of headache. -patient has heart valve and is unable to undergo MRI, will obtain CTA with adequate renal function with a creatinine of 0.7 -patient with poor oral intake and appears dehydrated with a BUN of 28 creatinine of 0.7, sodium is normal at 143. -gently rehydrate with history of cardiomyopathy, 1/2 normal saline at 50 cc/hour. -confusion may be related to elevated blood pressures, hypertensive urgency, presence of headache. Blood pressure exceeding stroke limit of 220/110. -continue patient's routine atenolol currently dosed at 25 mg twice daily. Monitor for persistent bradycardia. -will add lisinopril 10 mg daily. -will track blood pressures. -no evidence of sepsis with a normal white count of 6.6, lactate of 1.2, procalcitonin of less than 0.05, urinalysis negative and chest x-ray is clear. -GI PCR panel is ordered, blood cultures are drawn. 2. Diabetes type 2 insulin dependent, controlled, active -patient's blood sugar on admission was 112. No reports of hypoglycemia or hyperglycemia at home. -blood sugar checks a.c. and HS -low range correctional insulin. -moderate constant carbohydrate diet. 3. Chronic hypertension, present on admission, active -Blood pressure exceeding stroke limit of 220/110. -continue patient's routine atenolol currently dosed at 25 mg twice daily. Monitor for persistent bradycardia. -will add lisinopril 10 mg daily. -hydralazine 10 mg IV every 6 hours as needed SBP greater than 180 -will track blood pressures. 4. Prior history CV, active -unclear the patient's left facial droop is new or residual from prior event. -patient is not been on anticoagulation aspirin 325 mg x1 now -start aspirin 81 mg daily -PT and OT to evaluate treat -speech therapy to evaluate and treat 5. Fungating skin lesion upper back, present on admission, active -beefy red 2.5 cm bleeding raced mass lesion. -will request General surgery consult for biopsy and excision. -no evidence of possible metastases if found cancerous with negative abdominal and head CT as well as chest x-ray. The patient is admitted to the hospital related to risk of complications and adverse events. She requires ongoing monitoring and interventions with further evaluation. The patient is admitted as observation with expected length of stay to be less than 2 midnights. Scores GCS [place] coma scale eye opening: Spontaneous [place] coma scale verbal response: Confused [place] coma scale motor response: Obey commands [place] coma scale total score: 14
[2019-01-18] VITALS (14 sets, daily range): BP systolic 142–190; BP diastolic 57–93; PULSE 47–65; RESP 12–20; TEMP 36.3–36.5; O2SAT 94–100
[2019-01-18] MEDS: ASPIRIN EC 325 MG TABLET PO (00:25)
[2019-01-18] MEDS: NYSTATIN CREAM 30 GM 1 APPLIC TOP ×3 (00:26→21:17)
[2019-01-18] MEDS: METOPROLOL IR 25 MG TABLET PO (00:26)
[2019-01-18] MEDS: BISACODYL 10 MG SUPP PR (05:42)
--- NOTE | 2019-01-18 06:32 | PC.NURSE ---
Pt admitted with altered mental status, GLF, obstipation,. Hx CVA x3 with left side face droop, DM2 on insulin, and malignant melanoma. Pt with large oozing mass on left upper back, now covered with Allevyn, con't to ooze. Another non oozing lesion of mid chest that is brown and hard in appearance. Infectious panel negative. Large rash, reddened skin to front and back porsche area, nystatin cream applied. Pt had enema last shaquille, suppository given overnight, need GI stool panel sample. Pt refuses SCDs, it hurts even on night mode. Pt in AFib with rate of 37-62, provider aware. Pt on cardiac meds. HTN up to 201/101, provider ordered PRN hydralazine for SBP >180. None given overnight. Daughter in room. Pt with fragile skin, turn q1hr. Left heel pink, not blanchable and present on admit. Pt able to shift body weight some to assist with turns. In enteric isolation as CDiff rule out, had recent course of antibiotics. Pt does not have her dentures with her.
--- NOTE | 2019-01-18 08:05 | P.PN_ITS ---
Subjective Subjective Date Patient Seen: 01/18/19 Time Patient Seen: 13:42 Interval history: She is seen today to follow up the stroke symptoms and the necrotic skin lesions. Physical therapy and other therapies are planning to work with her today. She is also pending a CTA of the head. There is quite a bit of confusion about her code status, discussed today. Her apparently wants her to be full code, her daughter wants her to be partial code and the patient indicated to the surgeon today that she did not want aggressive life saving measures. I did not have a chance to ask her those questions and she was not engaging with me during my visit with her today. Exam Vital Signs (past 8 hours): - 01/18/19 01:00 01/18/19 03:05 01/18/19 05:00 Temperature 97.5 F L Pulse Rate 51 L Respiratory Rate 20 Blood Pressure 190/80 H Pulse Oximetry 100 100 100 01/18/19 05:36 Temperature Pulse Rate 54 L Respiratory Rate Blood Pressure 146/93 H Pulse Oximetry Oxygen Delivery Method Nasal Cannula Oxygen Flow Rate 2 Narrative Exam Narrative: She is not engaged. She does have her eyes open, looking blankly around. Her daughter reassures me that she is ?quite smart,? but I am unclear as to what she is really capable of at baseline. On the left upper back is a red/purple lesion suggesting neoplasm. Heart is regular rate and rhythm without murmur. Lungs are clear to auscultation bilaterally. Extremities have no ankle edema. Objective Labs Result Diagrams: 01/17/19 16:00 01/17/19 16:00 Labs: Laboratory Results - last 24 hr 01/17/19 01/17/19 01/17/19 16:00 16:00 16:00 WBC 6.6 RBC 4.42 Hgb 12.7 Hct 38.1 MCV 86.2 MCH 28.7 MCHC 33.3 RDW 13.8 Plt Count 226 Neut % (Auto) 65.2 Lymph % (Auto) 23.6 L Walker % (Auto) 8.0 Eos % (Auto) 2.2 Baso % (Auto) 1.0 Neut # (Auto) 4300 Lymph # (Auto) 1600 Walker # (Auto) 500 Eos # (Auto) 100 Baso # (Auto) 100 PT 12.4 INR 1.1 APTT 35 Sodium Potassium Chloride Carbon Dioxide BUN Creatinine Estimated GFR BUN/Creatinine Ratio Glucose Lactate Calcium Total Bilirubin AST ALT Alkaline Phosphatase Ammonia Total Creatine Kinase < 20 L Troponin I Total Protein Albumin Globulin Albumin/Globulin Ratio Procalcitonin TSH Prolactin Urine Color Urine Appearance Urine pH Ur Specific [place] Urine Protein Urine Glucose (UA) Urine Ketones Urine Occult Blood Urine Nitrate Urine Bilirubin Urine Urobilinogen Ur Leukocyte Esterase Urine RBC Urine WBC Ur Squamous Epith Cells Urine Bacteria Ur Culture Indicated? Salicylates Urine Opiates Screen Ur Oxycodone Screen Urine Methadone Screen Acetaminophen Ur Barbiturates Screen U Tricyclic Antidepress Ur Phencyclidine Scrn Ur Amphetamines Screen U Methamphetamines Scrn Ur MDMA Scrn (Ecstasy) U Benzodiazepines Scrn Urine Cocaine Screen U Marijuana (THC) Screen Ethyl Alcohol 01/17/19 01/17/19 01/17/19 16:00 16:00 16:00 WBC RBC Hgb Hct MCV MCH MCHC RDW Plt Count Neut % (Auto) Lymph % (Auto) Walker % (Auto) Eos % (Auto) Baso % (Auto) Neut # (Auto) Lymph # (Auto) Walker # (Auto) Eos # (Auto) Baso # (Auto) PT INR APTT Sodium 143 Potassium 4.0 Chloride 100 Carbon Dioxide 36 H BUN 28 H Creatinine 0.70 Estimated GFR > 60.0 BUN/Creatinine Ratio 40.0 H Glucose 112 H Lactate 1.2 Calcium 9.6 Total Bilirubin 0.7 AST 15 ALT < 6 L Alkaline Phosphatase 119 Ammonia < 9.0 L Total Creatine Kinase Troponin I 0.014 Total Protein 7.2 Albumin 3.8 Globulin 3.4 Albumin/Globulin Ratio 1.1 Procalcitonin TSH Prolactin 5.2 Urine Color Urine Appearance Urine pH Ur Specific [place] Urine Protein Urine Glucose (UA) Urine Ketones Urine Occult Blood Urine Nitrate Urine Bilirubin Urine Urobilinogen Ur Leukocyte Esterase Urine RBC Urine WBC Ur Squamous Epith Cells Urine Bacteria Ur Culture Indicated? Salicylates < 1.0 Urine Opiates Screen Ur Oxycodone Screen Urine Methadone Screen Acetaminophen < 10 L Ur Barbiturates Screen U Tricyclic Antidepress Ur Phencyclidine Scrn Ur Amphetamines Screen U Methamphetamines Scrn Ur MDMA Scrn (Ecstasy) U Benzodiazepines Scrn Urine Cocaine Screen U Marijuana (THC) Screen Ethyl Alcohol < 10 01/17/19 01/17/19 01/17/19 16:00 16:00 16:25 WBC RBC Hgb Hct MCV MCH MCHC RDW Plt Count Neut % (Auto) Lymph % (Auto) Walker % (Auto) Eos % (Auto) Baso % (Auto) Neut # (Auto) Lymph # (Auto) Walker # (Auto) Eos # (Auto) Baso # (Auto) PT INR APTT Sodium Potassium Chloride Carbon Dioxide BUN Creatinine Estimated GFR BUN/Creatinine Ratio Glucose Lactate Calcium Total Bilirubin AST ALT Alkaline Phosphatase Ammonia Total Creatine Kinase Troponin I Total Protein Albumin Globulin Albumin/Globulin Ratio Procalcitonin < 0.05 TSH 0.74 Prolactin Urine Color Urine Appearance Urine pH Ur Specific [place] Urine Protein Urine Glucose (UA) Urine Ketones Urine Occult Blood Urine Nitrate Urine Bilirubin Urine Urobilinogen Ur Leukocyte Esterase Urine RBC Urine WBC Ur Squamous Epith Cells Urine Bacteria Ur Culture Indicated? Salicylates Urine Opiates Screen Negative Ur Oxycodone Screen Negative Urine Methadone Screen Negative Acetaminophen Ur Barbiturates Screen Negative U Tricyclic Antidepress Negative Ur Phencyclidine Scrn Negative Ur Amphetamines Screen Negative U Methamphetamines Scrn Negative Ur MDMA Scrn (Ecstasy) Negative U Benzodiazepines Scrn Negative Urine Cocaine Screen Negative U Marijuana (THC) Screen Negative Ethyl Alcohol 01/17/19 16:25 WBC RBC Hgb Hct MCV MCH MCHC RDW Plt Count Neut % (Auto) Lymph % (Auto) Walker % (Auto) Eos % (Auto) Baso % (Auto) Neut # (Auto) Lymph # (Auto) Walker # (Auto) Eos # (Auto) Baso # (Auto) PT INR APTT Sodium Potassium Chloride Carbon Dioxide BUN Creatinine Estimated GFR BUN/Creatinine Ratio Glucose Lactate Calcium Total Bilirubin AST ALT Alkaline Phosphatase Ammonia Total Creatine Kinase Troponin I Total Protein Albumin Globulin Albumin/Globulin Ratio Procalcitonin TSH Prolactin Urine Color Yellow Urine Appearance Clear Urine pH 5.5 Ur Specific [place] 1.020 Urine Protein Trace H Urine Glucose (UA) Negative Urine Ketones Negative Urine Occult Blood Negative Urine Nitrate Negative Urine Bilirubin Negative Urine Urobilinogen 0.2 Ur Leukocyte Esterase Negative Urine RBC None seen Urine WBC None seen Ur Squamous Epith Cells 0-1 /hpf Urine Bacteria None seen Ur Culture Indicated? Culture not indicate Salicylates Urine Opiates Screen Ur Oxycodone Screen Urine Methadone Screen Acetaminophen Ur Barbiturates Screen U Tricyclic Antidepress Ur Phencyclidine Scrn Ur Amphetamines Screen U Methamphetamines Scrn Ur MDMA Scrn (Ecstasy) U Benzodiazepines Scrn Urine Cocaine Screen U Marijuana (THC) Screen Ethyl Alcohol Assessment & Plan Assessment & Plan narrative: This is an 83-year-old female patient who was admitted to the hospital related to altered mental status occurring over the last 3 days with confusion, disorientation and hallucinations, progressive weakness, labile blood pressure with pressures up into 200s, atrial fibrillation. 1. Acute altered mental status, present on admission, active -multiple potential etiologies, differential diagnosis: -history prior CVA, left facial droop, unclear if new versus residual from prior CVA. Patient stated headache. -patient has a mechanical heart valve and is unable to undergo MRI, so CTA pending today, with adequate renal function with a creatinine of 0.7 -patient with poor oral intake and appearing dehydrated with a BUN of 28 creatinine of 0.7, sodium is normal at 143. -gently rehydrate with history of cardiomyopathy, 1/2 normal saline at 50 cc/hour. -confusion may be related to elevated blood pressures, hypertensive urgency, presence of headache. Blood pressure exceeding stroke limit of 220/110. -holding atenolol due to persistent atrial fibrillation with slow juan tricular response in the 40-50s range -will continue lisinopril 10 mg daily. -will track blood pressures while holding atenolol.. -no evidence of sepsis with a normal white count of 6.6, lactate of 1.2, procalcitonin of less than 0.05, urinalysis negative and chest x-ray is clear. -GI PCR panel is negative, blood cultures are pending. 2. Diabetes type 2 insulin dependent, controlled, active -patient's blood sugar on admission was 112. No reports of hypoglycemia or hyperglycemia at home. -blood sugar checks a.c. and HS -low range correctional insulin. -moderate constant carbohydrate diet. 3. Chronic hypertension, present on admission, active -Blood pressure exceeding stroke limit of 220/110. -patient's routine atenolol currently dosed at 25 mg twice daily will need to be held due to bradycardia. EKG done for possible junctional rhythm appears to show atrial fibrillation with slow ventricular response.. -continue new lisinopril 10 mg daily. -hydralazine 10 mg IV every 6 hours as needed SBP greater than 180 -will track blood pressures and HR. 4. Prior history CV, active -unclear the patient's left facial droop is new or residual from prior event. -patient has not been on anticoagulation -started aspirin 81 mg daily -PT and OT are following, evaluate and treat -speech therapy are following, evaluate and treat 5. Necrotic skin lesion upper back, present on admission, active -beefy red 2.5 cm bleeding slightly raised mass lesion. -General surgery consult for biopsy and excision, with procedure planned for tomorrow. -no evidence of possible metastases if found cancerous with negative abdominal and head CT as well as chest x-ray. Disposition. Family are requesting skull nursing facility placement.
[2019-01-18] MEDS: DOCUSATE 100 MG CAPSULE PO ×2 (09:30→21:13)
[2019-01-18] MEDS: ASPIRIN EC 81 MG TABLET PO (09:30)
[2019-01-18] MEDS: ATENOLOL 50 MG TABLET 25 MG PO (09:31)
[2019-01-18 10:15] LABS: Adenovirus F 40/41 Not Detected (Not Detect); Astrovirus Not Detected (Not Detect); Campylobacter Not Detected (Not Detect); Clostridium difficile toxin AB Not Detected (Not Detect); Cryptosporidium Not Detected (Not Detect); Cyclospora cayetanensis Not Detected (Not Detect); Entamoeba histolytica Not Detected (Not Detect); Enteroaggregative E.coli Not Detected (Not Detect); Enteropathogenic E.coli Not Detected (Not Detect); Enterotoxigenic E.coli It/st Not Detected (Not Detect); Giardia lamblia Not Detected (Not Detect); Norovirus GI/GII Not Detected (Not Detect); Plesiomonsa shigelloides Not Detected (Not Detect); Rotavirus A Not Detected (Not Detect); Salmonella Not Detected (Not Detect); Shiga-like toxin-prod E.coli Not Detected (Not Detect); Shigella/Enteroinvasive E.coli Not Detected (Not Detect); Vibrio Not Detected (Not Detect); Vibrio cholerae Not Detected (Not Detect); Yersinia enterocolitica Not Detected (Not Detect)
[2019-01-18] MEDS: INSULIN ASPART 100 UNIT/ML INSULN PEN SUBCUT ×3 (12:12→21:13)
--- NOTE | 2019-01-18 12:15 | PM.CN ---
History of Present Illness Consult details Date Patient Seen: 01/18/19 Time Patient Seen: 12:16 Chief complaint: sepsis Reason for consult: Skin lesions Requesting provider: Yevgeniy Jain Narrative: Patient is a woman I saw in the office for skin lesions. I would plan to excise these in the office under local anesthetic. However the patient is now admitted with worsening mental status changes. Cause not clear. I was asked to see her regarding these lesions. [facility] Medical History Diabetes (Chronic) HTN (hypertension) (Chronic) Melanoma (Acute) Polio (Acute) Stroke (Resolved) Surgical History Heart valve replaced (Acute) History of carotid endarterectomy (Resolved) Hx of eye surgery (Resolved) Hx of heart bypass surgery (Resolved) Hx of shoulder surgery (Resolved) Family History Mother Cancer Father No problems noted. Sister No problems noted. Social History marital status: household members: spouse occupational status: previously employed Smoking Status: Never smoker alcohol intake: never substance use type: does not use Family History Mother Cancer Father No problems noted. Sister No problems noted. Social History marital status: household members: spouse occupational status: previously employed Smoking Status: Never smoker alcohol intake: never substance use type: does not use Meds Home Medications and Allergies Home Medications Medication Instructions Recorded Confirmed Type [HUMULIN N] 10 u SQ QDAY #0 06/01/10 01/17/19 History acetaminophen 325 mg capsule 650 mg PO Q4H PRN 12/31/18 01/17/19 History atenolol 50 mg tablet 50 mg PO DAILY 12/31/18 01/17/19 History coenzyme Q10 10 10 mg capsule 10 mg PO ONCE 12/31/18 01/17/19 History furosemide 20 mg tablet 20 mg PO DAILY 12/31/18 01/17/19 History Allergies Allergy/AdvReac Type Severity Reaction Status Date / Time codeine Allergy Unknown Verified 01/17/19 16:47 Opioids - Morphine Analogues Allergy Unknown Verified 01/17/19 16:47 Review of Systems Review of Systems Narrative: Unobtainable. Please see notes from admitting physician regarding changes that may have occurred. Exam Vital Signs (past 8 hours): - 01/18/19 05:00 01/18/19 05:36 01/18/19 08:00 Temperature 97.4 F L Pulse Rate 54 L 55 L Respiratory Rate 12 Blood Pressure 146/93 H 142/81 H Pulse Oximetry 100 99 01/18/19 09:00 01/18/19 10:45 01/18/19 12:00 Temperature 97.7 F Pulse Rate 58 L Respiratory Rate 14 Blood Pressure 158/57 H Pulse Oximetry 97 99 96 Fraction of Inspired Oxygen 24 Oxygen Delivery Method Nasal Cannula Oxygen Flow Rate 1 Narrative Exam Narrative: Very little change since I saw her in the office. She responds to her name and appears to understand what is said to her. She seems to respond to yes or no questions by a shaking her head. But she can't really answer any questions any useful manner and it is impossible to know if the yes no head movements are appropriate to the questions asked. Patient has decreased breath sounds in the bases. Heart is regular. She has a large open skin lesion on her shoulder, 1 on her mid chest which is much smaller and a tag on her thigh that becomes ulcerated. Objective Labs Result Diagrams: 01/17/19 16:00 01/17/19 16:00 Labs: Laboratory Results - last 24 hr 01/17/19 01/17/19 01/17/19 16:00 16:00 16:00 WBC 6.6 RBC 4.42 Hgb 12.7 Hct 38.1 MCV 86.2 MCH 28.7 MCHC 33.3 RDW 13.8 Plt Count 226 Neut % (Auto) 65.2 Lymph % (Auto) 23.6 L [place] % (Auto) 8.0 Eos % (Auto) 2.2 Baso % (Auto) 1.0 Neut # (Auto) 4300 Lymph # (Auto) 1600 [place] # (Auto) 500 Eos # (Auto) 100 Baso # (Auto) 100 PT 12.4 INR 1.1 APTT 35 Sodium Potassium Chloride Carbon Dioxide BUN Creatinine Estimated GFR BUN/Creatinine Ratio Glucose Lactate Calcium Total Bilirubin AST ALT Alkaline Phosphatase Ammonia Total Creatine Kinase < 20 L Troponin I Total Protein Albumin Globulin Albumin/Globulin Ratio Procalcitonin TSH Prolactin Urine Color Urine Appearance Urine pH Ur Specific [place] Urine Protein Urine Glucose (UA) Urine Ketones Urine Occult Blood Urine Nitrate Urine Bilirubin Urine Urobilinogen Ur Leukocyte Esterase Urine RBC Urine WBC Ur Squamous Epith Cells Urine Bacteria Ur Culture Indicated? Stl C. cayetanensis PCR Stool Rotavirus (PCR) Stool Adenovirus (PCR) Stool Astrovirus (PCR) Stool Cryptosporidium PCR Stl E.coli Shiga Tox PCR St Sh/Enteroin Ecoli PCR Stool E coli O157 PCR Stl Enterotoxigenic E PCR Stool EPEC (PCR) Stl E. histolytica PCR Stool Giardia Lamblia PCR Stl P. shigelloides PCR St Y.enterocolitica PCR Stool Vibrio (PCR) Stl Vibrio cholerae PCR Stl Enteroaggr Ecoli PCR Stl Norovirus GI/GII PCR Salicylates Urine Opiates Screen Ur Oxycodone Screen Urine Methadone Screen Acetaminophen Ur Barbiturates Screen U Tricyclic Antidepress Ur Phencyclidine Scrn Ur Amphetamines Screen U Methamphetamines Scrn Ur MDMA Scrn (Ecstasy) U Benzodiazepines Scrn Urine Cocaine Screen U Marijuana (THC) Screen Ethyl Alcohol Campylobacter (PCR) C. difficile Tox (PCR) Salmonella (PCR) 01/17/19 01/17/19 01/17/19 16:00 16:00 16:00 WBC RBC Hgb Hct MCV MCH MCHC RDW Plt Count Neut % (Auto) Lymph % (Auto) [place] % (Auto) Eos % (Auto) Baso % (Auto) Neut # (Auto) Lymph # (Auto) [place] # (Auto) Eos # (Auto) Baso # (Auto) PT INR APTT Sodium 143 Potassium 4.0 Chloride 100 Carbon Dioxide 36 H BUN 28 H Creatinine 0.70 Estimated GFR > 60.0 BUN/Creatinine Ratio 40.0 H Glucose 112 H Lactate 1.2 Calcium 9.6 Total Bilirubin 0.7 AST 15 ALT < 6 L Alkaline Phosphatase 119 Ammonia < 9.0 L Total Creatine Kinase Troponin I 0.014 Total Protein 7.2 Albumin 3.8 Globulin 3.4 Albumin/Globulin Ratio 1.1 Procalcitonin TSH Prolactin 5.2 Urine Color Urine Appearance Urine pH Ur Specific [place] Urine Protein Urine Glucose (UA) Urine Ketones Urine Occult Blood Urine Nitrate Urine Bilirubin Urine Urobilinogen Ur Leukocyte Esterase Urine RBC Urine WBC Ur Squamous Epith Cells Urine Bacteria Ur Culture Indicated? Stl C. cayetanensis PCR Stool Rotavirus (PCR) Stool Adenovirus (PCR) Stool Astrovirus (PCR) Stool Cryptosporidium PCR Stl E.coli Shiga Tox PCR St Sh/Enteroin Ecoli PCR Stool E coli O157 PCR Stl Enterotoxigenic E PCR Stool EPEC (PCR) Stl E. histolytica PCR Stool Giardia Lamblia PCR Stl P. shigelloides PCR St Y.enterocolitica PCR Stool Vibrio (PCR) Stl Vibrio cholerae PCR Stl Enteroaggr Ecoli PCR Stl Norovirus GI/GII PCR Salicylates < 1.0 Urine Opiates Screen Ur Oxycodone Screen Urine Methadone Screen Acetaminophen < 10 L Ur Barbiturates Screen U Tricyclic Antidepress Ur Phencyclidine Scrn Ur Amphetamines Screen U Methamphetamines Scrn Ur MDMA Scrn (Ecstasy) U Benzodiazepines Scrn Urine Cocaine Screen U Marijuana (THC) Screen Ethyl Alcohol < 10 Campylobacter (PCR) C. difficile Tox (PCR) Salmonella (PCR) 01/17/19 01/17/19 01/17/19 16:00 16:00 16:25 WBC RBC Hgb Hct MCV MCH MCHC RDW Plt Count Neut % (Auto) Lymph % (Auto) [place] % (Auto) Eos % (Auto) Baso % (Auto) Neut # (Auto) Lymph # (Auto) [place] # (Auto) Eos # (Auto) Baso # (Auto) PT INR APTT Sodium Potassium Chloride Carbon Dioxide BUN Creatinine Estimated GFR BUN/Creatinine Ratio Glucose Lactate Calcium Total Bilirubin AST ALT Alkaline Phosphatase Ammonia Total Creatine Kinase Troponin I Total Protein Albumin Globulin Albumin/Globulin Ratio Procalcitonin < 0.05 TSH 0.74 Prolactin Urine Color Urine Appearance Urine pH Ur Specific [place] Urine Protein Urine Glucose (UA) Urine Ketones Urine Occult Blood Urine Nitrate Urine Bilirubin Urine Urobilinogen Ur Leukocyte Esterase Urine RBC Urine WBC Ur Squamous Epith Cells Urine Bacteria Ur Culture Indicated? Stl C. cayetanensis PCR Stool Rotavirus (PCR) Stool Adenovirus (PCR) Stool Astrovirus (PCR) Stool Cryptosporidium PCR Stl E.coli Shiga Tox PCR St Sh/Enteroin Ecoli PCR Stool E coli O157 PCR Stl Enterotoxigenic E PCR Stool EPEC (PCR) Stl E. histolytica PCR Stool Giardia Lamblia PCR Stl P. shigelloides PCR St Y.enterocolitica PCR Stool Vibrio (PCR) Stl Vibrio cholerae PCR Stl Enteroaggr Ecoli PCR Stl Norovirus GI/GII PCR Salicylates Urine Opiates Screen Negative Ur Oxycodone Screen Negative Urine Methadone Screen Negative Acetaminophen Ur Barbiturates Screen Negative U Tricyclic Antidepress Negative Ur Phencyclidine Scrn Negative Ur Amphetamines Screen Negative U Methamphetamines Scrn Negative Ur MDMA Scrn (Ecstasy) Negative U Benzodiazepines Scrn Negative Urine Cocaine Screen Negative U Marijuana (THC) Screen Negative Ethyl Alcohol Campylobacter (PCR) C. difficile Tox (PCR) Salmonella (PCR) 01/17/19 01/18/19 16:25 08:20 WBC RBC Hgb Hct MCV MCH MCHC RDW Plt Count Neut % (Auto) Lymph % (Auto) [place] % (Auto) Eos % (Auto) Baso % (Auto) Neut # (Auto) Lymph # (Auto) [place] # (Auto) Eos # (Auto) Baso # (Auto) PT INR APTT Sodium Potassium Chloride Carbon Dioxide BUN Creatinine Estimated GFR BUN/Creatinine Ratio Glucose Lactate Calcium Total Bilirubin AST ALT Alkaline Phosphatase Ammonia Total Creatine Kinase Troponin I Total Protein Albumin Globulin Albumin/Globulin Ratio Procalcitonin TSH Prolactin Urine Color Yellow Urine Appearance Clear Urine pH 5.5 Ur Specific [place] 1.020 Urine Protein Trace H Urine Glucose (UA) Negative Urine Ketones Negative Urine Occult Blood Negative Urine Nitrate Negative Urine Bilirubin Negative Urine Urobilinogen 0.2 Ur Leukocyte Esterase Negative Urine RBC None seen Urine WBC None seen Ur Squamous Epith Cells 0-1 /hpf Urine Bacteria None seen Ur Culture Indicated? Culture not indicate Stl C. cayetanensis PCR Not detected Stool Rotavirus (PCR) Not detected Stool Adenovirus (PCR) Not detected Stool Astrovirus (PCR) Not detected Stool Cryptosporidium PCR Not detected Stl E.coli Shiga Tox PCR Not detected St Sh/Enteroin Ecoli PCR Not detected Stool E coli O157 PCR Not detected Stl Enterotoxigenic E PCR Not detected Stool EPEC (PCR) Not detected Stl E. histolytica PCR Not detected Stool Giardia Lamblia PCR Not detected Stl P. shigelloides PCR Not detected St Y.enterocolitica PCR Not detected Stool Vibrio (PCR) Not detected Stl Vibrio cholerae PCR Not detected Stl Enteroaggr Ecoli PCR Not detected Stl Norovirus GI/GII PCR Not detected Salicylates Urine Opiates Screen Ur Oxycodone Screen Urine Methadone Screen Acetaminophen Ur Barbiturates Screen U Tricyclic Antidepress Ur Phencyclidine Scrn Ur Amphetamines Screen U Methamphetamines Scrn Ur MDMA Scrn (Ecstasy) U Benzodiazepines Scrn Urine Cocaine Screen U Marijuana (THC) Screen Ethyl Alcohol Campylobacter (PCR) Not detected C. difficile Tox (PCR) Not detected Salmonella (PCR) Not detected Assessment & Plan Assessment & Plan narrative: Multiple skin lesions that are chronic and may represent malignancy with hypertrophic granulation tissue. While she is hospitalized will take to the operating room to excise. I have discussed this in her presence with her daughter and by phone. They are agreeable as they were at the time of her office visit to have these removed. They want me leave the thigh lesion to the my discretion but the other 2 they would definitely like removed
--- NOTE | 2019-01-18 14:52 | CM.DANOTE ---
Addendum entered by Brittny Bailey 01/18/19 15:10: Faxed clinicals to [facility] per protocol. Confirmation of fax received. GLENN Original Note: DCP/Assessment: Reviewed chart. Patient is a 83yr old female admitted to [facility] under OBS status with altered mental status. PCP listed is Dr. Bacon. Primary payor is 1)[facility] 2)Self-pay. Met with patient and daughter/Lary at bedside explained CM/ role. Patient's spouse/Earl on speaker phone during assessment. Daughter reports that patient resides with spouse and daughter in [place], [place]. Spouse has been primary caregiver for patient for several years. Patient with h/o previous CVA's. Patient drowsy at time of assessment and does not participate. Daughter reports that patient has not ambulated with device for approximately 7-8 months. Patient relies on spouse/family to transfer to/from chair and bed. Patient currently on service with [facility]. Daughter and spouse confirm that they have been working with patient specifically on mobility but it has been a slow process. Family interested in patient going to SNF for short period of time to obtain daily therapy. Spouse reports that patient can cognitively follow commands and comprehend what is being taught. PT/OT and ST evaluations are currently pending. Both daughter and spouse made aware that patient will need to qualify and that authorization will need to be obtained from [facility] for short SNF stay. They would like CM team to proceed. First SNF choice is [facility]. SENIOR BUDGET ANALYST placed call to October at [facility] requesting that she evaluate. Will contact [facility] on Saturday01-19-19. Family also report that patient has multiple skin lesions on her back. One, that family report is bleeding most of the time. Patient has been seen as outpatient by surgery and the plan has been to have them removed with biopsy. Spoke with Dr. Jain re: the family's concerns. He will discuss with them and order surgery consult if he feels necessary during hospitalization. P: Anticipate d/c to SNF for rehabilitation if patient qualifies and authorization can be obtained from [facility] vs. Home with resume HH with [facility]. JANIE Sheets Discharge Planning/Care Management CM Discharge Assessment Start: 01/18/19 14:29 Freq: Status: Active Protocol: Document 01/18/19 14:29 GLENN (Rec: 01/18/19 14:52 [facility] [id number]) Discharge Planning Assessment Assigned [employer] Bak[employer] Clerk JANIE Sheets Contact Information Earl Casiano (spouse)[phone] Advance Directives? Yes History Provided By Patient,Family Member, Significant Other,Medical Record Prior Living Arrangements House Household Members spouse Type of transporation used prior to Relies on Others admit Independent with ADL's No: Needs assist with all ADL' s. Is patient alert and oriented? No: Per family not currently. Caregiver for Another No Community Services used prior to Physical Therapy,Occupational admission: Therapy,Home Health Aid,Home Health Nurse Comment [facility] prior to admit. DME Already Rented / Owned [facility] / [facility] Patient/Family Preference Nursing Home Facility Discharge Plan Nursing Home Facility Referrals Initiated Nursing Home If patient plan is SNF: Has PASSR been No completed? Comment OBS status from time of admit. Medicare Choice List Provided Yes SNF/HH Preference [facility] Contact Name/Phone October [phone] Has Agency SNF been contacted Yes Whiteboard Updated in Patient Room with Yes name and ext. # of Deli Bakery Clerk Review Status In Process Next Review Type Continued Stay Review
--- NOTE | 2019-01-18 16:32 | PT.IIE ---
Current Diagnoses Type 2 diabetes mellitus without complications (01/17/19) Altered mental status, unspecified (01/17/19) Surgical History (Last Reviewed 01/18/19 @ 12:17 by Alon Ray MD) Heart valve replaced (Acute) History of carotid endarterectomy (Resolved) Hx of eye surgery (Resolved) Hx of heart bypass surgery (Resolved) Hx of shoulder surgery (Resolved) Medical History (Last Reviewed 01/18/19 @ 12:17 by Alon Ray MD) Diabetes (Chronic) HTN (hypertension) (Chronic) Melanoma (Acute) Polio (Acute) Stroke (Resolved) Physical Therapy Inpatient Evaluation/Re-Eval M1 PT/OT-IP Prior Functional Status Start: 01/18/19 12:30 Freq: NEEDED Status: Active Protocol: Document 01/18/19 16:02 AW (Rec: 01/18/19 16:32 AW [id number]) Medical Review Prior Functional Status Medical History Reviewed Yes Diet/Fluid Consistency Regular Communication Pt able to follow one-step commands Mobility and Gait Per SW note, family reports pt has not ambulated at all in the past 7-8 months. She is dependent on her spouse, daughter, other caregivers for transfers Activities of Daily Living and IADL's Unable to obtain from patient or from EMR review. Social History Household Members spouse,children Living Arrangements House Number of Stairs To Enter/Railing? Unable to obtain from patient or from EMR review Additional Social History Comment Unable to obtain this information. Pt unable to respond. Will need to follow up when family available M2 PT-IP Current Condition Start: 01/18/19 12:30 Freq: NEEDED Status: Active Protocol: Document 01/18/19 16:02 AW (Rec: 01/18/19 16:32 AW [id number]) Physical Therapy Current Condition Current Condition Evaluation Date 01/18/19 Treatment Diagnosis altered mental status, impaired bed mobility, transfers, gait Weight Bearing Status Weight Bearing Status Full Weight Bearing M3 PT-IP Subjective Start: 01/18/19 12:30 Freq: NEEDED Status: Active Protocol: Document 01/18/19 16:02 AW (Rec: 01/18/19 16:32 AW [id number]) Subjective Physical Therapy Visit Type Type Initial Evaluation Visit Start Time 15:40 Visit Stop Time 15:59 Total Visit Minutes 19 Number of NETWORK SYSTEMS ANALYST Visits 0 Physical Therapy Visit Comments Patient Comments Pt able to respond to yes/no questions with head nods and unintelligble phonation. Patient Goals Unable to ascertain Therapy Pain Assessment Pain When Pain Assessed During Mobility Pain Present Pain Present Unable to Respond FLACC Pain Scale Face Occasional grimace/frown Legs Uneasy, restless, tense Activity Quiet, moves easily Cry No cry (awake or asleep) Consolability Reassurable with touch FLACC Total 3 M4 PT-IP Mobility and Gait Start: 01/18/19 12:30 Freq: NEEDED Status: Active Protocol: Document 01/18/19 16:02 AW (Rec: 01/18/19 16:32 AW [id number]) PT-Bed Mobility Assessment Rolling Type of Rolling Roll to Right,Roll to Left Level of Assist Minimal Assistance Supine to Sit Supine to Sit Moderate Assistance,1 Person Assistance,Head of Bed Elevated,Bedrails Sit to Supine Sit to Supine Moderate Assistance,1 Person Assistance,Head of Bed Elevated,Bedrails Scooting Scooting to Edge of Bed Minimal Assistance Scooting Up and Down in Bed Minimal Assistance PT-Transfer Assessment Comments Mobility Comments Pt required min to mod assist for all bed mobility, including transfer to dangling legs at edge of bed. She refused any attempt to stand, but was willing to sit EOB ~3 minutes PT-Balance Assessment Sitting Balance and Reactions Static Sitting Balance Ability Good Dynamic Sitting Balance Ability Fair M5 PT-IP Objective Assessments Start: 01/18/19 12:30 Freq: NEEDED Status: Active Protocol: Document 01/18/19 16:02 AW (Rec: 01/18/19 16:32 AW [id number]) Orientation Orientation/Cognition Level of Alertness Confusional State Language Function Ability Garbled Speech Safety Awareness Decreased Safety Awareness Gross Range of Motion Upper Extremity ROM Assessment Bilaterally Impaired Impairments Shoulder elevation limited bilaterally, ~110 degrees on the right, 90 degrees on the left Lower Extremity ROM Assessment Bilaterally Impaired Strength Upper Extremity Strength Assessment Bilaterally Impaired Lower Extremity Strength Assessment Bilaterally Impaired Comments Strength Comments Pt was able to follow simple commands for manual muscle testing. BLE grossly 3+/5 in al major muscle groups Coordination Assessment Gross Coordination Gross Coordination WNL Sensation Assessment Comments Sensation Comments Unable to assess Muscle Tone Muscle Tone WNL Yes M6 PT-IP Treatment Start: 01/18/19 12:30 Freq: NEEDED Status: Active Protocol: Document 09/08/19 16:02 AW (Rec: 01/18/19 16:32 AW [id number]) Physical Therapy Treatment Education Education Provided Safety M7 PT-IP Assessment and Plan Start: 01/18/19 12:30 Freq: NEEDED Status: Active Protocol: Document 01/18/19 16:02 AW (Rec: 01/18/19 16:32 AW [id number]) PT Summary Assessment and Plan Potential Rehabilitation Potential Fair Status of Condition at Evaluation Evolving Summary Impairments Pain,ROM,Strength,Cognition, Bed Mobility,Transfers,Gait, Activity Tolerance Assessment Summary Drea is an 83 yo woman with history of CVA's who lives with her and daughter. Her has been her primary caregiver. According to [employer] notes, pt has been unable to ambulate with any assistive device for at least 7-8 months and she has been dependent on her caregivers for transfers. On exam, she is markedly weak, has a left- sided facial droop, no tongue deviation, and is confused, unable to communicate well. It is unclear whether these deficits are residual from previous CVA's or are new. She required min to mod assist for all bed mobility, was able to sit edge of bed for ~3 minutes, but then refused any attempt to stand secondary to weakness. She was willing to work the PT and would likely be able to advance mobility to work on transfers. PT recommends SNF rehab to work on transfers and attempt gait with appropriate assistive device once medically cleared for discharge Goals Bed Mobility Goal Standby Assistance Transfer Goal Contact Guard Assistance Gait Goal Minimal Assistance Gait Distance 10 Days to Meet Goals 20 Frequency of Treatment Frequency Of Treatment Once a Day Treatment Plan Physical Therapy Treatment Plan Bed Mobility Training,Transfer Training,Gait Training, Therapeutic Exercise,Balance Retraining,Post Op Education, Discharge Planning,Hot or Cold Pack,Neuromuscular Re-ed, Coordination Retraining,Manual Therapy Other Recommendations and Next Treatment continue to work on bed Focus mobility to increase independence, attempt standing Recommendations To Nursing Amount of Assist Needed 1 Person Assist,2 Person Assist Discharge Recommendations PT Discharge Recommendations SNF Rehab
[2019-01-18 19:21] LABS: BUN Creatinine Ratio 35.7 (6-22); Blood Urea Nitrogen 25 mg/dL (7-17); Calcium 9.2 mg/dL (8.4-10.2); Carbon Dioxide 30 mmol/L (22-32); Chloride 100 mmol/L (98-107); Estimated Glomerular Filt Rate > 60.0 mL/min (>60); Glucose 204 mg/dL (80-110); HEMOLYSIS 16 (0-50); Potassium 4.3 mmol/L (3.4-5.1); Sodium 138 mmol/L (137-145)
[2019-01-18] MEDS: ACETAMINOPHEN 325 MG TABLET 650 MG PO (21:13)
--- NOTE | 2019-01-18 22:42 | PC.NURSE ---
Assumed care of pt at 1500. Pt resting in bed during bedside hand-off report. Loose stools this shift changed briefs frequently. Applying Nystatin cream to rash. At approx [address] room stating pt needs repeat GFR prior to CT scan. Provider Notified. Once lab complete pt off unit for CT, shortly returned to Room. Per float RN new IV inserted by ED RN prior to CT. At approx 2200 Pt c/o sob, chest pain and throat pain. This proposal writer assessed pt. Sats 100% RA. R.T. was making rounds and assessed pt as well. Pt stated the symptoms resolved within a few minutes.
[2019-01-18] MEDS: SODIUM CHLORIDE 0.45% 1,000 ML 50 ML IV (23:02)
[2019-01-19] VITALS (22 sets, daily range): BP systolic 125–208; BP diastolic 53–103; PULSE 41–84; RESP 14–22; TEMP 36.1–37.2; O2SAT 96–100; BMI 25.5
--- NOTE | 2019-01-19 | PATH_ITS ---
[facility] Accession Number: [id number] . 01 Material submitted: . PART A: back - LEFT SIDED, MID UPPER BACK PART B: thigh - RIGHT THIGH . 01 Clinical history: . A: LESION: MEDIAL=SHORT, SUPERIOR=LONG B: SKIN TAG . 01 Diagnosis: A. Left Side, Mid Upper Back, Lesion, Excision: Basal cell carcinoma nodular and infiltrative-type. Surgical margins: Peripheral and deep margins are negative for carcinoma. . B. Right Thigh Lesion, Excision: Nevus lipomatosus superficialis. Negative for malignancy. [facility] 01/21/2019 1710 Local . 01 Comment: As part of ongoing quality analyst, a selected slide (A13) is also reviewed by dermatopathologist, Dr. Diana Maldonado, who agrees with the interpretation. . 01 Electronically signed: . Clari Jay MD, Pathologist NPI- [id number] . 01 Gross description: . (A) Received in formalin, labeled mid upper back, left-sided lesion, is an ellipse of olvera-white smooth shiny skin with underlying tissue (3.8 cm 12 o'clock to 6 o'clock, 6.7 cm 9 o'clock to 3 o'clock, 0.8 cm superficial to deep) oriented with two black sutures (long-superior, short-medial). The sutures are redesignated as long-12 o'clock and short-3 o'clock by the pathologist's geological survey field assistant for grossing purposes. A brown-escobar irregular crusted over lesion (2.7 x 2.3 x 0.3 cm) is located 0.4 cm from the 12 o'clock, 2.0 cm from the 3 o'clock, 0.3 cm from the 6 o'clock, and 2.5 cm from the 9 o'clock resection margins. Ink code: yellow-9 o'clock to 12 o'clock; blue-12 o'clock to 3 o'clock; black-3 o'clock to 6 o'clock to 9 o'clock. The ellipse is serially sectioned into 16 slices 9 o'clock to 3 o'clock, and submitted as follows: (A1) 9 o'clock and 3 o'clock tips/slices 1 and 16; (A2) slices 2 and 3; (A3) slice 4; (A4) slice 5; (A5) slice 6; (A6) slice 7; (A7) slice 8; (A8-A9) slice 9, bisected and submitted 6 o'clock to 12 o'clock; (A10-A11) slice 10, bisected and submitted 6 o'clock to 12 o'clock; (A12) slice 11; (A13) slice 12; (A14) slice 13; (A15) slice 14; (A16) slice 15. (JM:[id number]) (B) Received in formalin, labeled skin tag right thigh, is a piece of escobar-olvera rubbery polypoid skin (1.2 x 0.9 x 0.3 cm). The resection margin is inked blue. Trisected and entirely submitted in cassette B1. (JM:[id number]) /MRV 01/20/2019 1005 Local . 01 Pathologist provided ICD-10: C44.519 . 01 CPT . 432434, [id number] Performed at: [address] [facility] [address], [place], [place] [id number] MD Harpal Lee MD Phone: [phone]
--- NOTE | 2019-01-19 04:31 | PC.NURSE ---
Addendum entered by Leslee Decker R.N. 01/19/19 06:48: Pt attempting to pull left AC PIV, flushed positive for blood return. Wrapped lightly in coban, arm positioned under blankets and pillow. Offered distraction with TV, pt declined. Right AC PIV removed as was not patent and leaking when flushed. Original Note: A&O x2, slow to respond to RN questions. Responds to name and her birthdate. Pt NPO since midnight except meds for planned biopsy and excision of lesion to left upper back. Pt denies pain or shortness of breath. Pt with loose stools last shaquille, none overnight. Pt with fragile skin. 1-2person assist for frequent q1-2hr reposition in bed. Pt normotensive 125/57, PRN hydralazine of SBP >180. Tele in AFib with BBB, HR 39-50's. Pt is a limited code. Pt refuses SCDs overnight, even on night mode. Provider aware. Family request senior care facility at discharge.
[2019-01-19] MEDS: CEFAZOLIN 2 GM/100 ML FROZ.PIGGY IV ×2 (09:11→17:30)
[2019-01-19] MEDS: NYSTATIN CREAM 30 GM 1 APPLIC TOP ×2 (09:27→21:55)
--- NOTE | 2019-01-19 10:20 | DIET.PN ---
Dietary Progress Note Assessment: 83y F referred to nutrition for low Felipe score (12) also MNA 11 (at risk for malnutrition) r/t bed/chair bound, multiple necrotic skin lesions. Pt has poor oral intake, dehydration, currently no dentures (daughter reports having them). Discussed pt c daughter who was in room. She reports pt has difficulty swallowing, prefers soft food and thicker textures. When pt has diet order, enjoys: oatmeal, scrambled eggs, meatloaf, mashed potatoes, smoothies. HT: 162.5cm WT: 67.5kg BMI: 25.5 Nutrition Diagnosis: Inadequate PRO intake r/t increased need for healing wounds, sepsis aeb NPO for procedure to remove lesions. Interventions: Recc ONS Guido smoothie bid to support wound healing (37% PRO needs), SLT consult for swallowing if not already done EERs: 1350kcal, 75g PRO (1.1g/kg elder), 2L fluids Monitoring/Evaluations: ONS tolerance, POs
--- NOTE | 2019-01-19 10:22 | OT.IP.TRT ---
Current Diagnoses Type 2 diabetes mellitus without complications (01/17/19) Altered mental status, unspecified (01/17/19) Surgery Performed Operation Date: 01/19/19 17:15 <No data on this case meets the specified criteria> Occupational Therapy Treatment Note M3 OT- IP Subjective and Pain Start: 01/19/19 10:15 Freq: Status: Active Protocol: Document 01/19/19 10:16 [facility] (Rec: 01/19/19 10:22 [facility] [id number]) OT- Subjective Occupational Therapy Visit Type Type Administrative Note Notes Asked nursing regarding seeing pt for OT eval. Nursing requested therapist to HOLD from seeing as having surgery today and wanting pt to rest.
--- NOTE | 2019-01-19 10:39 | PT.IPTN ---
Current Diagnoses Type 2 diabetes mellitus without complications (01/17/19) Altered mental status, unspecified (01/17/19) Surgery Performed Operation Date: 01/19/19 17:15 <No data on this case meets the specified criteria> Physical Therapy Treatment Note Notes Hold PT this AM so that pt can rest prior to surgery today. Pt may also be discharging today, will continue to follow .
--- NOTE | 2019-01-19 10:44 | PC.NURSE ---
AM NOTE - pt does awaken to voice, oriented self, when dtr at bedside does ask where her is, denies pain, ns at 50ml hr, can follow basic directions, allevyn to posterior shoulder cdi, per icu, poss vtach 4 beat, copy tele to .
--- NOTE | 2019-01-19 13:34 | SLP.IPNOTE ---
Attempted to see pt for evaluation. Pt is currently NPO pending surgery later today. Will Follow up in the a.m.
--- NOTE | 2019-01-19 16:56 | PC.NURSE ---
Assumed care of pt at 1500. Pt resting in bed during bedside hand-off. Dtr at bedside. Pt waiting to go to surgery for removal of lesions. Pt off unit at approx 1630. Brief changed prior to leaving unit.
--- NOTE | 2019-01-19 17:15 | PM.PREOP ---
Pre-operative Note Interval Note History & Physical reviewed/Exam performed by Physician: Yes Changes to H&P: No H&P completed within 30 days and has changed as indicated here:: See my consultation from yesterday. Consent obtained from the via telephone. Daughter was at the bedside was also willing to sign consent.
[2019-01-19] MEDS: BUPIVACAINE 0.5% (PF) VIAL 30 ML INJ (18:00)
--- NOTE | 2019-01-19 18:57 | P.OP_ITS ---
Operative Date/Time/Diagnoses Date of procedure: 01/19/19 Time of procedure: 18:30 Pre-op diagnosis: Fungating skin lesion of the back. Chronic wound of the chest wall. Intermittently inflamed skin tag right thigh. Post-op diagnosis: same (Possible skin cancer of the back. Suspect chronically draining tract from a possible infected suture used to close the chest from cardiac operation. Skin tag of the thigh.) Procedure & Clinicians Procedure: Excision of lesion 3 cm x 2 cm on the back with margin (5 cm with margin and 2 layer closure of a 5 cm wound.) Excision of skin tag thigh. Debridement of granulation tissue from small wound on the chest. Same procedure as scheduled: Yes Indications: Chronic draining lesion on the back. Chronic draining lesion on the chest. Intermittently inflamed skin tag right thigh. Surgeon: Alon Ray Click Yes if Unassisted: Yes Anesthesia Type: MAC +/- Operative Notes Findings: Lesion on back completely excised with at least a cm normal margin i ncluding subcu fat. Debrided granulation tissue from lesion on the chest measuring 1-1/2 by 1 cm. Possibly a chronic stitch abscess from a metallic suture. Skin tag thigh Closure Type: primary (Chronic draining sinus left open after debriding granulation tissue) Specimen(s): other (Back lesion and thigh lesions submitted. Culture taken of the granulation tissue.) Estimated Blood Loss (mL): 40 Blood products transfused: none Procedure in detail: Patient was placed in the left lateral decubitus position. Lesion was in the left upper medial back. Area was prepped and draped in the usual fashion. Local anesthetic was infiltrated in field block fashion. Elliptical incision was made around this lesion including at least a cm margin. Lesion was excised including subcu fat. Cautery was used to control bleeding. Three 0 Vicryl used to close the subcu. Three 0 nylon vertical mattress sutures were used to close the skin. Dressing was applied. Attention was turned to the right thigh. I examined the thigh prepped circumferentially in the only lesion I could find was a large skin tag that may have been inflamed in the past. He was prepped and draped in the usual fashion. I obtained local anesthetic by do into ejecting 0.5% Marcaine under it. It was excised sharply and a single 4 0 nylon suture was used to close the defect. A Band-Aid was applied. The patient was placed supine then on the bed. Attention was turned to the chest wall lesion. It was prepped and draped in the usual fashion. There was obvious granulation tissue within it and I cultured this. I then removed it principally with blunt instruments. I tried to find a tract but could not do so but suspected that this involves a chronically draining sinus down to a wire suture that was placed in her chest wall. This did not appear to be a skin cancer. I irrigated the wound placed antibiotic ointment and a bandage over it. Patient was taken to the recovery room good condition. Deep sedation was required for this patient due to the patient's multiple medi lulu problems and her inability to cooperate due to mental status changes. Complications: none Post-operative Condition: stable Disposition: PACU Plan for aftercare: Will need follow up for suture removal
--- NOTE | 2019-01-19 19:41 | P.PN_ITS ---
Subjective Subjective Date Patient Seen: 01/19/19 Time Patient Seen: 10:30 Interval history: This is an 83-year-old female patient who was admitted to the hospital related to altered mental status occurring over the last 3 days with confusion, disorientation and hallucinations, progressive weakness, labile blood pressure with pressures up into 200s, atrial fibrillation. She Has a surgical excision this evening with Dr. Ray. Her daughter reports improved mental status today. Exam Vital Signs (past 8 hours): - 01/19/19 15:30 01/19/19 16:37 01/19/19 18:38 Temperature 96.9 F L 97.7 F 97.4 F L Pulse Rate 64 66 68 Respiratory Rate 18 16 16 Blood Pressure 156/89 H 182/73 H 173/67 H Pulse Oximetry 100 100 99 01/19/19 18:43 01/19/19 18:48 01/19/19 18:52 Temperature Pulse Rate 60 55 L 66 Respiratory Rate 22 18 14 Blood Pressure 198/77 H 198/76 H 190/89 H Pulse Oximetry 99 99 98 01/19/19 19:00 01/19/19 19:10 Temperature 97.8 F Pulse Rate 57 L 54 L Respiratory Rate 16 18 Blood Pressure 189/93 H 198/73 H Pulse Oximetry 99 97 Fraction of Inspired Oxygen 24 Oxygen Delivery Method Room Air Oxygen Flow Rate 0 Narrative Exam Narrative: She is not engaged. She does have her eyes open, looking blankly around. Her daughter reassures me that she is ?quite smart,? but I am unclear as to what she is really capable of at baseline. On the left upper back is a red/purple lesion suggesting neoplasm. Heart is regular rate and rhythm without murmur. Lungs are clear to auscultation bilaterally. Extremities have no ankle edema. Objective Labs Result Diagrams: 01/17/19 16:00 01/18/19 19:00 Assessment & Plan Assessment & Plan narrative: This is an 83-year-old female patient who was admitted to the hospital related to altered mental status occurring over the last 3 days with confusion, disorientation and hallucinations, progressive weakness, labile blood pressure with pressures up into 200s, atrial fibrillation with slow ventricular response. 1. Acute altered mental status, present on admission, active - -multiple potential etiologies, differential diagnosis: -history prior CVA, left facial droop, unclear if new versus residual from p rior CVA. Patient stated headache. -patient has a mechanical heart valve and is unable to undergo MRI, so CTA was done and unremarkable., with adequate renal function with a creatinine of 0.7 -patient with poor oral intake and appearing dehydrated with a BUN of 28 creatinine of 0.7, sodium is normal at 143. -gently rehydrate with history of cardiomyopathy, 1/2 normal saline at 50 cc/hour. -confusion may be related to elevated blood pressures, hypertensive urgency, presence of headache. Blood pressure exceeding stroke limit of 220/110. -holding atenolol due to persistent atrial fibrillation with slow ventricular response in the 40-50s range -will continue lisinopril 10 mg daily. -will track blood pressures while holding atenolol. -May also be related to bradycardia, which is improving now that we are holding atenolol. -no evidence of sepsis with a normal white count of 6.6, lactate of 1.2, procalcitonin of less than 0.05, urinalysis negative and chest x-ray is clear. -GI PCR panel is negative, blood cultures are pending. 2. Diabetes type 2 insulin dependent, controlled, active -patient's blood sugar on admission was 112. No reports of hypoglycemia or hyperglycemia at home. -blood sugar checks a.c. and HS -low range correctional insulin. -moderate constant carbohydrate diet. 3. Chronic hypertension, present on admission, active -Blood pressure exceeding stroke limit of 220/110. -patient's routine atenolol currently dosed at 25 mg twice daily will need to be held due to bradycardia. EKG done for possible junctional rhythm appears to show atrial fibrillation with slow ventricular response.. -start new lisinopril 10 mg daily. -hydralazine 10 mg IV every 6 hours as needed SBP greater than 180 -will track blood pressures and HR. 4. Prior history CV, active -unclear the patient's left facial droop is new or residual from prior event. -patient has not been on anticoagulation -started aspirin 81 mg daily -PT and OT are following, evaluate and treat -speech therapy are following, evaluate and treat 5. Necrotic skin lesion upper back, present on admission, active -beefy red 2.5 cm bleeding slightly raised mass lesion. -General surgery consult for biopsy and excision, with procedure planned for today -no evidence of possible metastases if found cancerous with negative abdominal and head CT as well as chest x-ray. Dispo: Likely SNF or possibly home health.
[2019-01-19] MEDS: HYDRALAZINE 20 MG/ML VIAL 10 MG IV (19:54)
--- NOTE | 2019-01-19 20:14 | PC.NURSE ---
Pt arrived from [facility]. Awake and conversant. Denies pain. IVF restarted. BP elevated, PRN hydralazine administered.
[2019-01-19] MEDS: DOCUSATE 100 MG CAPSULE PO (21:55)
[2019-01-20] VITALS (15 sets, daily range): BP systolic 110–192; BP diastolic 63–85; PULSE 54–75; RESP 16; TEMP 36.2–36.7; O2SAT 94–100
[2019-01-20] MEDS: LISINOPRIL 10 MG TABLET PO (09:07)
[2019-01-20] MEDS: DOCUSATE 100 MG CAPSULE PO ×2 (09:07→20:29)
[2019-01-20] MEDS: ACETAMINOPHEN 325 MG TABLET 650 MG PO (09:08)
[2019-01-20] MEDS: NYSTATIN CREAM 30 GM 1 APPLIC TOP ×2 (09:08→20:29)
[2019-01-20] MEDS: ASPIRIN EC 81 MG TABLET PO (09:08)
--- NOTE | 2019-01-20 10:41 | PC.NURSE ---
Addendum entered by Vandana Dickey R.N. 01/20/19 14:20: MS - pt had pt sit up in dangle position, assisted with adl's, pt unable to tsf, does not stand, per family, hold and pivot only. Addendum entered by Vandana Dickey R.N. 01/20/19 11:28: MS/[facility]TE[facility] - PT and OT in to mobilize, pt had spontaneous bleeding from r nares, cleaned and placed a rolled 2x2 to stop, cleaned, incont urine, pericare performed. Original Note: AM NOTE - pt is alert, speech is limited to brief yes or no answers this am, does assist w/turning, incont urine, porsche care and nystatin to groin rash, dsg r thigh w/small spot old serosang, mid chest dsg cdi, back dsg cdi, unable to state pain, did admin tylenol with breakfast after discussion with dtberkley Pretty, hr irreg 60, ra 96%, repositioned upright for breakfast and pt fed self.
--- NOTE | 2019-01-20 11:42 | PT.IPTN ---
Current Diagnoses Type 2 diabetes mellitus without complications (01/17/19) Altered mental status, unspecified (01/17/19) Surgery Performed Operation Date: 01/19/19 17:15 Actual Procedures p Excision ulcerative lesion mid left sided back, wound exploration and culture mid chest, excision skin tag right thigh - Alon Ray MD Physical Therapy Treatment Note M2 PT-IP Current Condition Start: 01/18/19 12:30 Freq: NEEDED Status: Active Protocol: Document 01/18/19 16:02 AW (Rec: 01/18/19 16:32 AW [id number]) Physical Therapy Current Condition Current Condition Evaluation Date 01/18/19 Treatment Diagnosis altered mental status, impaired bed mobility, transfers, gait Weight Bearing Status Weight Bearing Status Full Weight Bearing M3 PT-IP Subjective Start: 01/18/19 12:30 Freq: NEEDED Status: Active Protocol: Document 01/20/19 11:11 CLB (Rec: 01/20/19 13:08 CLB [id number]) Subjective Physical Therapy Visit Type Type Treatment Note Visit Start Time 11:11 Visit Stop Time 11:42 Total Visit Minutes 33 Notes Co-treated with OT Number of UROLOGY SURGEON Visits 1 Therapy Pain Assessment Pain When Pain Assessed At Rest Pain Present Pain Present Denied Pain M4 PT-IP Mobility and Gait Start: 01/18/19 12:30 Freq: NEEDED Status: Active Protocol: Document 01/20/19 11:11 CLB (Rec: 01/20/19 13:08 CLB [id number]) PT-Bed Mobility Assessment Rolling Type of Rolling Roll to Right,Roll to Left Level of Assist Maximal Assistance,1 Person Assistance Supine to Sit Supine to Sit Maximum Assistance,1 Person Assistance,Head of Bed Elevated Sit to Supine Sit to Supine Maximum Assistance,1 Person Assistance Scooting Scooting to Edge of Bed Maximum Assistance Scooting Up and Down in Bed Dependent PT-Transfer Assessment Comments Mobility Comments Pt able to follow directions requiring Max A to roll, pt able to bend knee and reach with arm for bed rail. Pt required Mod A with HOB up to lean forward towards EOB and was able to minimally move legs towards EOB. Pt was able to sit on EOB for ~10 minutes while holding onto hand television actor and bracing herself with right hand. Pt required cues to lean forward and lift head to prevent her from leaning posteriorly. Pt was able to brush her hair and perform seated knee flx/ext and ankle pumps at EOB. Pt required Max A sit-supine and was dependent for scooting to HOB using trendelenburg bed feature. Pt then was able to perform HS and quad sets with tactile cues for activation. Gait Assessment Comments Gait Comments unable Stair Climbing Assessment Comments Stair Climbing Comments unable PT-Balance Assessment Sitting Balance and Reactions Static Sitting Balance Ability Good Dynamic Sitting Balance Ability Fair M5 PT-IP Objective Assessments Start: 01/18/19 12:30 Freq: NEEDED Status: Active Protocol: Document 01/18/19 16:02 AW (Rec: 01/18/19 16:32 AW [id number]) Orientation Orientation/Cognition Level of Alertness Confusional State Language Function Ability Garbled Speech Safety Awareness Decreased Safety Awareness Gross Range of Motion Upper Extremity ROM Assessment Bilaterally Impaired Impairments Shoulder elevation limited bilaterally, ~110 degrees on the right, 90 degrees on the left Lower Extremity ROM Assessment Bilaterally Impaired Strength Upper Extremity Strength Assessment Bilaterally Impaired Lower Extremity Strength Assessment Bilaterally Impaired Comments Strength Comments Pt was able to follow simple commands for manual muscle testing. BLE grossly 3+/5 in al major muscle groups Coordination Assessment Gross Coordination Gross Coordination WNL Sensation Assessment Comments Sensation Comments Unable to assess Muscle Tone Muscle Tone WNL Yes M6 PT-IP Treatment Start: 01/18/19 12:30 Freq: NEEDED Status: Active Protocol: Document 01/20/19 11:11 CLB (Rec: 01/20/19 13:08 CLB [id number]) Physical Therapy Treatment Exercises Exercises Ankle Pumps,Quad Sets,Heel Slides,Seated Knee Flexion/ Extension M7 PT-IP Assessment and Plan Start: 01/18/19 12:30 Freq: NEEDED Status: Active Protocol: Document 01/20/19 11:11 CLB (Rec: 01/20/19 13:08 CLB [id number]) PT Summary Assessment and Plan Summary Assessment Summary Pt is Mod-Max A x1 for bed mobility but able to sit on EOB for ~10 minutes. Pt is unable to stand and has not stood for over seven months according to and daughter, daughter performs all bathing and pericare and if pt leaves for a doctor appt daughter performs squat pivot transfer to . Pt has been working with PT and and daughter confirm that pt has made progress in strength of LE's and is able to assist more with bed mobility. (see mobility comments). Pt would benefit from SNF rehab to progress strength and functional mobility. Goals Bed Mobility Goal Standby Assistance Transfer Goal Contact Guard Assistance Gait Goal Minimal Assistance Gait Distance 10 Days to Meet Goals 20 Frequency of Treatment Frequency Of Treatment Once a Day Treatment Plan Physical Therapy Treatment Plan Bed Mobility Training,Transfer Training,Gait Training, Therapeutic Exercise,Balance Retraining,Post Op Education, Discharge Planning,Hot or Cold Pack,Neuromuscular Re-ed, Coordination Retraining,Manual Therapy Other Recommendations and Next Treatment continue to work on bed Focus mobility to increase independence, sitting on EOB and bed ther ex. Recommendations To Nursing Amount of Assist Needed 1 Person Assist,2 Person Assist Discharge Recommendations PT Discharge Recommendations SNF Rehab Equipment Needed for Home Before [place] lift to assist family Discharge with transfer to and [facility].
--- NOTE | 2019-01-20 11:50 | OT.IP.EVAL ---
Current Diagnoses Type 2 diabetes mellitus without complications (01/17/19) Altered mental status, unspecified (01/17/19) Surgery Performed Operation Date: 01/19/19 17:15 Actual Procedures p Excision ulcerative lesion mid left sided back, wound exploration and culture mid chest, excision skin tag right thigh - Alon Ray MD Past Medical History (Last Reviewed 01/18/19 @ 12:17 by Alon Ray MD) Diabetes (Chronic) HTN (hypertension) (Chronic) Melanoma (Acute) Polio (Acute) Stroke (Resolved) Surgical History (Last Reviewed 01/18/19 @ 12:17 by Alon Ray MD) Heart valve replaced (Acute) History of carotid endarterectomy (Resolved) Hx of eye surgery (Resolved) Hx of heart bypass surgery (Resolved) Hx of shoulder surgery (Resolved) Occupational Therapy Inpatient Evaluation/Re-Eval M1 PT/OT-IP Prior Functional Status Start: 01/18/19 12:30 Freq: NEEDED Status: Active Protocol: Document 01/20/19 11:50 VEGA (Rec: 01/20/19 13:47 PJ [id number]) Medical Review Prior Functional Status Medical History Reviewed Yes Diet/Fluid Consistency Pureed Communication Pt able to follow one-step commands and verbalizes in short 1-2 word phrases. Mobility and Gait Per and daughter, pt has not ambulated at all in the past 7-8 months. She is max assist of one for squat pivot transfers to w/c which occurs for MD appointments and about once every 10 days so pt can go out on porch in her w/c. Activities of Daily Living and IADL's Pt able to feed self, wash face and hands and do some hair care with assist. Pt total assist with denture care , dressing, bathing and toileting (incontinent of bowel and bladder in adult diaper) per family. They have BSC but were not using it. Prior Functional Level (Other details) and daughter are primary caregivers for pt. states he can no longer lift pt due to his own health issues. Social History Household Members spouse,children Living Arrangements House Number of Floors (Floors) Two Floors Number of Stairs To Enter/Railing? level entry Home Equipment Manual Wheelchair,Bedside Commode,Hospital Bed Employment Status Retired M2 OT-IP Current Condition Start: 01/19/19 10:15 Freq: Status: Active Protocol: Document 01/20/19 11:50 PJM (Rec: 01/20/19 13:47 PJM [id number]) Occupational Therapy Current Condition Current Condition Evaluation Date 01/20/19 Treatment Diagnosis decreased self care, mobility, BUE function w/altered mental status Diagnosis Onset Date 01/17/19 Post Operative Precautions Other Precautions fall risk, non ambulatory, surgical excision of wound on R thigh, chest and back 01/19/19 M3 OT- IP Subjective and Pain Start: 01/19/19 10:15 Freq: Status: Active Protocol: Document 01/20/19 11:50 PJM (Rec: 01/20/19 13:47 PJM [id number]) OT- Subjective Occupational Therapy Visit Type Type Initial Evaluation Visit Start Time 11:07 Visit Stop Time 11:50 Total Visit Minutes 43 Notes Pt's daughter and observing this session. Occupational Therapy Visit Comments Patient Comments Pt verbalizes with 1-2 word responses with encouragement; tends to to just respond with head nods. OT Pain Assessment Pain When Pain Assessed After Treatment Pain Present Pain Present Denied Pain M4 OT- IP ADL's Start: 01/19/19 10:15 Freq: Status: Active Protocol: Document 01/20/19 11:50 PJM (Rec: 01/20/19 13:47 PJM [id number]) OT [id number] General Evaluation Self-Feeding Ability Standby Assistance Comments OT Self-Feeding Comments Pt needs full meal tray set up , then feeds self with R hand with intermittent supervision. Pt on pureed diet at home and here. OT ADL-Grooming General Evaluation Grooming Ability Standby Assistance,Moderate Assistance Areas Needing Assistance Combing/Brushing Hair,Face Washing Comments OT Grooming Comments SBA with face washing in bed, mod assist with brushing back of hair seated EOB OT ADL-Oral Care General Eval Oral Care Ability Total Assistance Areas of Assistance Managing Dentures OT ADL-Dressing General Eval Upper Body Dressing Ability Maximum Assistance Lower Body Dressing Ability Total Assistance Comments OT Dressing Comments pt participates in gown change and has potential to be more indep with upper body dressing OT ADL-Toileting General Evaluation Toileting Ability Total Assistance Areas Needing Assistance Manage Clothing,Perform Perineal Hygiene Comments OT Toileting Comments pt incontinent in bed per family, wears adult diaper OT ADL-Bathing Bathing Type Bathing Type Bed Bath General Evaluation Bathing Ability Total Assistance M5 OT- IP IADL's Start: 01/19/19 10:15 Freq: Status: Active Protocol: Document 01/20/19 11:50 PJM (Rec: 01/20/19 13:47 [facility] [id number]) OT-Instrumental Activities of Daily Living Deficits IADL Deficits Identified Deficits Home Safety Awareness Home Safety Comments pt dependent with all IADLS Medication Management Medication Management Caregiver Administers Money Management Money Management Caregiver Provides Assistance Meal Preparation Meal Preparation Caregiver Provides Assist See Supervisor See Supervisor Caregiver Provides Assist Driving Driving Caregiver Provides Assist M6 OT- IP Functional Cognition Start: 01/19/19 10:15 Freq: Status: Active Protocol: Document 01/20/19 11:50 PJM (Rec: 01/20/19 13:47 [facility] [id number]) Cognitive Factors Limiting Selfcare Function Cognitive Ability Level of Alertness Alert Patient Orientation Name Attention Span Ability Capable of Focused Attention Ability to Follow Commands Able to Follow One Step Commands with Increased Time Cognitive Comments Cognitive Assessment Comments Pt follows one step command consistently, but very limited expressive language. OT- Vision and Hearing OT- Hearing Assessment OT- Hearing Assessment WFL OT- Vision Assessment Vision Assessment Comments Pt scans across midline to B sides with no obvious visual spatial neglect. Further assessment to follow. M7 OT- IP Mobility and Balance Start: 01/19/19 10:15 Freq: Status: Active Protocol: Document 01/20/19 11:50 PJM (Rec: 01/20/19 13:47 [facility] [id number]) OT- Bed Mobility Assessment Rolling Type of Rolling Roll to Right,Roll to Left Level of Assistance Maximum Assistance,1 Person Assistance,Bedrails Supine to Sit Supine to Sit Assist Maximum Assistance,1 Person Assistance,Head of Bed Elevated,Bedrails Sit to Supine Sit to Supine Assist Maximum Assistance,2 Person Assistance Scooting Scooting to Edge of Bed Maximum Assistance,1 Person Assistance,Head of Bed Elevated Scooting Up and Down in Bed Total Assistance,2 Person Assistance OT-Transfer Assessment Comments Mobility Comments did not occur OT- Gait Assessment Comments Gait Ability Comments pt non ambulatory for 7-8 months per family OT- Balance Assessment Sitting Balance and Reactions Static Sitting Balance Ability Fair Dynamic Sitting Balance Ability Poor Comments Other Balance Tests/Deviations/Treatment pt tends to lean L and back, : but tolerating 10+ min EOB this session M8 OT- IP Objective Assessments Start: 01/19/19 10:15 Freq: Status: Active Protocol: Document 01/20/19 11:50 PJM (Rec: 01/20/19 13:47 PJM [id number]) OT Gross Range of Motion Upper Extremity Range of Motion Assessment Bilaterally Impaired ROM Impairments R shoulder scaption limited to ~70 degrees, distal AROM WFL, but slow compared to L L shoulder scaption limited to ~90 degrees, distal AROM WFL OT Strength Upper Extremity Strength Assessment Bilaterally Impaired Shoulder R scaption 3-/5 L scaption 3+/5 Elbow R flex 4-/5, ext 4-/5 L flex 4/5, ext 4/5 Forearm R 3-/5 L 4/5 Wrist R ext 3-/5 L 4/5 Hand R event technician 3+/5 L event technician 4-/5 Hand Design Analyst Strength Hand Dominance Right Comments Strength Comments RUE weaker than LUE, pt had R humeral fx 6 months ago per OT- Coordination Assessment Comments Coordination Comments RUE has decreased/slowed isolated movement in forearm, wrist and fingers compared to L, but pt using it dominantly for self care tasks OT-Muscle Tone Assessment Muscle Tone WNL Yes OT Sensation Assessment Comments Summary Comments to be assessed M9 OT- IP Assessment and Plan Start: 01/19/19 10:15 Freq: Status: Active Protocol: Document 01/20/19 11:50 PJM (Rec: 01/20/19 13:47 [facility] [id number]) OT Summary Assessment and Plan Potential Rehabilitation Potential Fair Analytic Complexity at Evaluation Moderate Summary OT Impairments Range of Motion,Strength, Balance,Coordination, Functional Cognition, Functional Mobility,Grooming, Dressing,Toileting,Bathing, Toilet Transfers,Shower Transfers Assessment Summary Moderate complexity OT assessment due to pt's complex medical hx including multiple strokes, polio, DM II, AFIB, CAD with CABG, HTN, malignant melanoma, R humeral fx 6 months ago. Pt alerts to verbal and tactile stim and follows one step commands consistently with good effort this session. Pt can verbalize 1-2 responses with encouragement. Pt has significant performance deficits in RUE strength and coordination. She has been bed bound for past 7-8 months per family, but has made significant improvement in BUE/BLE strength over past month with PT/OT services per family. Pt requires max assist for squat pivot transfers to manual w/c by or daughter at home. Pt needs max to total assist with dressing, toileting and bed and at home. She has potential to be more independent with grooming and upper body dressing. Recommend SNF at present due to pt's high care needs. Note reports he can no long lift pt due to his own health issues. Goals for subacute rehab to include increasing general strength and activity tolerance, increase independence and safety in self care and determine safest transfer method for family at home. Pt may need selene lift for transfers pending progress. Pt will benefit from OT services here to address the goals below. Goals Grooming Goal Minimal Assistance Dressing Goal Minimal Assistance Bathing Goal Minimal Assistance Toilet Transfer Goal Moderate Assistance,Bedside Commode OT-Other Goals Dressing goal is for upper body dressing in chair. Bathing goal is for upper body sponge abth in chair. Days to Meet Goals 7 Frequency of Treatment Frequency Of Treatment Once a Day Treatment Plan OT Treatment Plan ADL Training,Functional Cognition Training,Functional Mobility,Therapeutic Exercises ,Patient/Family Education, Discharge Planning Discharge Recommendations OT Discharge Recommendations SNF Rehab Home Equipment Needs ? selene lift
[2019-01-20] MEDS: INSULIN ASPART 100 UNIT/ML INSULN PEN SUBCUT ×3 (12:28→20:27)
--- NOTE | 2019-01-20 15:18 | ST.IPCSEOM ---
Visit Care Team Role Provider Type Earl Bacon MD Primary Care Provider Physician Specialty: Family Practice Address: [address] [place] [address], [id number] Email: [email or web address] Raffy Ring MD Other Providers Physician Specialty: General Surgery Address: [address] [place] [address], [id number] Email: [email or web address] Cristy Almazan DO Emergency Provider Physician Specialty: Emergency Medicine Address: [address] [place] [address], [id number] Email: [email or web address] ANTONIA Alfonso Admit Provider Physician Attending Provider Specialty: Internal Medicine Address: [address] [place] [address], [address] Email: [email or web address] Current Diagnoses Type 2 diabetes mellitus without complications (01/17/19) Altered mental status, unspecified (01/17/19) Past Medical History (Last Reviewed 01/18/19 @ 12:17 by Alon Ray MD) Diabetes (Chronic Medical) HTN (hypertension) (Chronic Medical) Melanoma (Acute Medical) Polio (Acute Medical) Stroke (Resolved Medical) 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 Mary Casiano is an 83- year-old female with a history significant for atrial fibrillation, hypertension, type 2 diabetes on insulin, history of polio, prior CVA and malignant melanoma who presents to the hospital with altered mental status. History is obtained from the patient's daughters the patient is unable to contribute meaningful information and is oriented to self only. Per the daughter the patient had rather abrupt change in her health and mental status 3 days ago. The daughter describes increased confusion with hallucinations, weakness, labile blood pressure that has been markedly elevated and slow heart rate down as low as the 40s. The daughter is concerned related to sepsis and concern for possible C difficile since the patient has been having diarrhea and was on antibiotic 1 month ago for what appears to be a cancerous skin lesion on her back. Patient lives at with her and the daughter providing care and has previously been on hospice apparently related to deteriorating cardiac status but she improved is now receiving care from [facility] 2 times weekly. The patient does complain of a frontal headache and has pain over left upper back the location of her skin lesion. She denies fevers or chills, chest pain, shortness of breath, abdominal pain, nausea vomiting. The patient has been essentially bed-bound per the daughter and over the last 3 days has been nonambulatory. Subjective Observations Pt was up in her bed with lunch tray. Pt sitting upright. was in her room and provided history re: dysphagia. has been preparing meals with puree texture in their home. Pt is reported by to be choking more frequently over the past couple of months. Evaluation Liquids Trialed Ice Chips,Thin,[place] Solids Trialed Puree Administration Type Tea Spoon,Cup Single Sip, Controlled Cup Sip,Cup Consecutive Sips,Straw,Self- Feeding Oral Impairment Moderately Impaired Oral Strategies Upright at 90 degrees,Double Swallow,Toothette,Controlled Bite/Sip Size,Alternate Liquids/Solids Oral Phase Comments Pt is edentulous. She has dentures, but does not wear them. Informal observation of OM skills indicated that pt is able to clear swallow with lip closure. No oral leakage observed. She takes large bites/spoonsful. Pt chews her foods for an extended period of time before swallowing. Oral residue observed. Pt able to clear residue when cued and given enough time between bites. Given the prolonged mastication time suspect bolus leakage past tongue base prior to swallowing. Pharyngeal Impairment Moderately Impaired Pharyngeal Strategies Sitting Upright (90 deg),Chin Tuck,Double Swallow,Small Bites and Sips,Alternate Liquids/Solids Pharyngeal Phase Comments Hyolaryngeal elevation and forward hyoid movement incomplete. Delayed swallow ~2 + seconds with solids. Pt was observed to choke x1 during trials, due to large amount on spoon and with using a straw with thin liquids. She did not cough/choke when given controlled cup sips. She did phonate when daughter came in and cued her mother. Pt did not demonstrate wet voicing after swallow. Suspect pharyngeal pooling following swallows. Unable to determine aspiration risk without instrumental assessment. Findings Rehabilitation Potential Fair Diet Recommendations Liquids Order Thin Diet Order Dysphagia Blenderized Medication Recommendations As Tolerated Additional Dietary Needs Controlled Sips,No Straws,1:1 Supervision,1:1 Assistance Aspiration Precautions Recommended Precautions Upright at 90 Degrees, Alternate Liquids/Solids,Small Bites/Sips,Double Swallow, Check for Pocketing,Liquids from Cup Additional Precautions Pt impulsively takes large sips and bites. Treatment Plan Placement Recommendations after Home with Home Health Discharge Appropriate for Therapy Yes: ST follow up x 1-2 to assure diet safety Dysphagia Goals Pt will safely tolerate the least-restrictive diet without overt s/sx aspiration to meed nutrition and hydration needs .
--- NOTE | 2019-01-20 15:58 | PM.PN.1 ---
Subjective Subjective Date Patient Seen: 01/20/19 Time Patient Seen: 10:00 Interval history: This is an 83-year-old female patient who was admitted to the hospital related to altered mental status with confusion, disorientation and hallucinations, progressive weakness, labile blood pressure with pressures up into 200s, atrial fibrillation. She is now POD #1 status post excision of a back lesion, a skin tag, and debridement of another wound on her chest. She is more lethargic today but this is expected after surgery. We are currently awaiting approval from [facility] for possible SNF rehab which is recommended by Physical therapy and Occupational therapy. The patient had no complaints today but only responds with yes or no questions. Exam Vital Signs (past 8 hours): - 01/20/19 08:00 01/20/19 12:00 01/20/19 14:18 Temperature 98.1 F Pulse Rate 54 L Respiratory Rate 16 Blood Pressure 142/63 H Pulse Oximetry 96 100 95 01/20/19 15:20 Temperature 97.9 F Pulse Rate 60 Respiratory Rate 16 Blood Pressure 160/68 H Pulse Oximetry 94 Fraction of Inspired Oxygen 24 Oxygen Delivery Method Room Air Oxygen Flow Rate 0 Narrative Exam Narrative: GENERAL APPEARANCE: Somnolent but arousable, answers yes or no to questions. SKIN: Inspection of the skin reveals no rashes, ulcerations or petechiae. Dressings are C/D/I. HEENT: The sclerae were anicteric and conjunctivae were pink and moist. Extraocular movements were intact and pupils were equal, round with normal accommodation. External inspection of the ears and nose showed no scars, lesions, or masses. Lips, teeth, and gums showed normal mucosa. The oral mucosa, hard and soft palate, tongue and posterior pharynx were unremarkable. NECK: Supple and symmetric. There was no thyroid enlargement, and no tenderness, or masses were felt. CHEST: Normal AP diameter and normal contour without any kyphoscoliosis. LUNGS: Auscultation of the lungs revealed no wheezes, rhonchi, or rales. CARDIOVASCULAR: There was a regular rate and rhythm without any murmurs, gallops, rubs. Peripheral pulses were 2+ and symmetric. ABDOMEN: Soft and nontender with normal bowel sounds. No ascites was noted. MUSCULOSKELETAL: There was no tenderness or effusions noted. Muscle strength and tone were normal. EXTREMITIES: No cyanosis, clubbing or edema. Objective Labs Result Diagrams: 01/17/19 16:00 01/18/19 19:00 Assessment & Plan Assessment & Plan narrative: This is an 83-year-old female patient who was admitted to the hospital related to altered mental status occurring over the last 3 days with confusion, disorientation and hallucinations, progressive weakness, labile blood pressure with pressures up into 200s, atrial fibrillation with slow ventricular response. 1. Acute altered mental status, present on admission, active - she had improved yesterday but is slightly more somnolent secondary to operative interventions. -multiple potential etiologies, differential diagnosis: -history prior CVA, left facial droop, unclear if new versus residual from prior CVA. Patient stated headache. -patient has a mechanical heart valve and is unable to undergo MRI, so CTA was done and unremarkable., with adequate renal function with a creatinine of 0.7 -patient with poor oral intake and appearing dehydrated with a BUN of 28 creatinine of 0.7, sodium is normal at 143. -gently rehydrate with history of cardiomyopathy, 1/2 normal saline at 50 cc/hour. -confusion may be related to elevated blood pressures, hypertensive urgency, presence of headache. Blood pressure exceeding stroke limit of 220/110. -holding atenolol due to persistent atrial fibrillation with slow ventricular response in the 40-50s range -will continue lisinopril 10 mg daily. -will track blood pressures while holding atenolol. -May also be related to bradycardia, which is improving now that we are holding atenolol. -no evidence of sepsis with a normal white count of 6.6, lactate of 1.2, procalcitonin of less than 0.05, urinalysis negative and chest x-ray is clear. -GI PCR panel is negative, blood cultures are negative. 2. Diabetes type 2 insulin dependent, controlled, active -patient's blood sugar on admission was 112. No reports of hypoglycemia or hyperglycemia at home. -blood sugar checks a.c. and HS -low range correctional insulin. -moderate constant carbohydrate diet. 3. Chronic hypertension, present on admission, active -Blood pressure exceeding stroke limit of 220/110. -patient's routine atenolol currently dosed at 25 mg twice daily will need to be held due to bradycardia. EKG done for possible junctional rhythm appears to show atrial fibrillation with slow ventricular response.. -start new lisinopril 10 mg daily. -hydralazine 10 mg IV every 6 hours as needed SBP greater than 180 -will track blood pressures and HR. 4. Prior history CV, active -unclear the patient's left facial droop is new or residual from prior event. -patient has not been on anticoagulation -started aspirin 81 mg daily -PT and OT are following, evaluate and treat -speech therapy are following, evaluate and treat 5. Necrotic skin lesion upper back, present on admission, active- no s/p excision with General Surgery -beefy red 2.5 cm bleeding slightly raised mass lesion now s/p excision. -General surgery consult for biopsy and excision. Appreciate Assistance. -no evidence of possible metastases if found cancerous with negative abdominal and head CT as well as chest x-ray. Dispo: Likely SNF or possibly home health.
--- NOTE | 2019-01-20 17:00 | CM.DPNOTE ---
DCP/continued: Received call back from October at [facility] this afternoon. Per October, they can accept this patient if authorization from [facility] obtained. [facility] have been notified of need for SNF authorization. Have need heard back from them as of 3:30pm today. [facility] ALE is Melissa at [phone]. [address] Montes patient is medically cleared to discharge. P: Contact [facility] in AM for SNF authorization. Updated clinicals with SNF request have been sent by JESS/Eug[facility]. If [facility] does not authorize patient will need to return home with family and resume therapy with [facility] JANIE Sheets
[2019-01-20] MEDS: SODIUM CHLORIDE 0.45% 1,000 ML 50 ML IV (18:26)
[2019-01-20] MEDS: HYDRALAZINE 20 MG/ML VIAL 10 MG IV (20:35)
[2019-01-21] VITALS (15 sets, daily range): BP systolic 133–181; BP diastolic 48–98; PULSE 59–86; RESP 16–22; TEMP 36.1–36.7; O2SAT 93–98
--- NOTE | 2019-01-21 08:48 | CM.DPC ---
Addendum entered by JANIE Banks 01/21/19 16:14: ADD: Return call from Aliza at [facility] stating that after physician review, they feel they do not have enough information for SNF decision. They are not declining SNF auth but requesting clinicals from PT/OT and maybe MD tomorrow to review for final decision. BLAIRE discussed with Debbie AGUILERA Medical Terminologist, , UR, and PT was consulted and sounds that pt may be back to her baseline of basically w/c bound. Plan is for MD to speak with pt and family this evening that not likely that [facility] will auth SNF and therefore they should plan on home with HH tomorrow unless [facility] surprisingly auth's SNF. SW waiting to fax PT/OT notes but not available yet so Debbie graciously offered to fax this evening to [facility] when available. Plan: SW to follow closely in the morning for [facility] determination for SNF vs return home with HH referral. JANIE Banks Addendum entered by JANIE Banks 01/21/19 13:05: ADD: Call from Ashanti with [facility] stating she needs more clinicals to review as pt does not seem to be an easy auth for SNF. Aliza states she does not have H&P and BLAIRE refaxed H&P and clinicals to review and pt likely will need physician review. BLAIRE following closely for [facility] decision on SNF auth. BF Original Note: DCP Cont: BLAIRE called pt's [facility] ALE Burrell and updated her that pt is medically stable to d/c to SNF to [facility] who has accepted pending insurance auth. Ashanti confirmed that she has received the faxed clinicals and will review parvin and call with decision on SNF auth. Plan: SW to follow for review and return call from [facility] to determine if pt qualifies for SNF auth. JANIE Banks
--- NOTE | 2019-01-21 09:09 | ST.IPDYTX ---
Visit Care Team Role Provider Type Earl Bacon MD Primary Care Provider Physician Specialty: Family Practice Address: [address] [place] [address], [id number] Email: [email or web address] Raffy Ring MD Other Providers Physician Specialty: General Surgery Address: [address] [place] [address], [id number] Email: [email or web address] Almazan DO Emergency Provider Physician Specialty: Emergency Medicine Address: [address] [place] [address], [id number] Email: [email or web address] Admit Provider Physician Attending Provider Specialty: Internal Medicine Address: [address] [place] [address], [address] Email: [email or web address] Dysphagia Treatment LOG RAFTER Dysphagia Treatment Start: 01/20/19 14:54 Freq: Status: Active Protocol: Document 01/21/19 08:49 TLC (Rec: 01/21/19 09:09 TLC [id number]) Dysphagia Treatment Session Time Visit Start Time 08:15 Visit Stop Time 08:36 Total Visit Minutes 21 Visit Information Visit Number 2 Setting Assessment Location Acute Care Visit Type Note Type Treatment Note Patient Information Subjective Observations Patient seen sitting up in bed self-feeding cream of wheat and smoothie from breakfast tray. Her daughter, Heidi was present in the room. Patient answered my questions ~60% of the time. She was oriented to self and her daughter and 's names, but not to place or situation. Treatment Liquids Trialed Thin,Gardi Solids Trialed Puree Administration Type Self-Feeding Oral Strategies Upright at 90 degrees, Controlled Bite/Sip Size, Alternate Liquids/Solids Pharyngeal Strategies Double Swallow,Small Bites and Sips Treatment Activities Patient had straws in her smoothie and in the hospital water cup. Provided education to her daughter regarding recommendations for cup sips only due to large bite sizes and difficulty with straws yesterday per evaluating therapist. Patient has poor posture with forward hanging head, which although likely improves bolus containment in the oral cavity, probably contributes to oral holding up to ~15 seconds and delayed swallow onset despite verbal cues to swallow. Per daughter, the patient has done this for quite some time. Patient was observed to self-feed appropriate sized bites of cream of wheat. She did not make attempts to clear oral residue from lips requiring assistance for wiping mouth clean. No significant residue observed in the oral cavity with implementation of alternating liquids/solids. Patient coughed on one occasion following a cup sip of smoothie which appeared to move posteriorly and trigger a swallow response before the patient was ready to swallow. Her cough was weak and unproductive. All other bites and sips were consumed without coughing or other signs of potential aspiration. Assessment Patient Response to Treatment Fair Rehab Potential Fair Assessment of Improvement Patient is at increased risk for aspiration given the following factors: reduced mobility, poor posture, and history of CVA. Despite these, patient was observed to implement small bites/sips and slow rate independently today . She required cueing for alternating liquids/solids and assistance for clearing residue. Her oral health status is in good condition. Diet Recommendations Recommendations Continue Current Diet Liquids Order Thin Diet Order Dysphagia Blenderized Medication Recommendations As Tolerated Additional Dietary Needs Controlled Sips,No Straws,1:1 Assistance,Reminders to Use Strategies Aspiration Precautions Recommended Precautions Upright at 90 Degrees, Alternate Liquids/Solids,Small Bites/Sips Treatment Plan Placement Recommendation after Discharge Nursing Home Facility Appropriate for Continued Therapy Yes Therapy Recommendations Ongoing patient and family education/training. Dysphagia Goals Patient will implement safe swallow strategies/precautions recommended given minimal verbal assistance in order to increase independence and safety during meals.
[2019-01-21] MEDS: DOCUSATE 100 MG CAPSULE PO ×2 (09:16→22:24)
[2019-01-21] MEDS: ASPIRIN EC 81 MG TABLET PO (09:16)
[2019-01-21] MEDS: LISINOPRIL 10 MG TABLET PO ×2 (09:17→19:13)
[2019-01-21] MEDS: NYSTATIN CREAM 30 GM 1 APPLIC TOP ×2 (09:17→22:21)
[2019-01-21] MEDS: INSULIN ASPART 100 UNIT/ML INSULN PEN SUBCUT (12:11)
[2019-01-21] MEDS: SODIUM CHLORIDE 0.45% 1,000 ML 50 ML IV (13:46)
--- NOTE | 2019-01-21 15:35 | PT.IPTN ---
Current Diagnoses Type 2 diabetes mellitus without complications (01/17/19) Altered mental status, unspecified (01/17/19) Surgery Performed Operation Date: 01/19/19 17:15 Actual Procedures p Excision ulcerative lesion mid left sided back, wound exploration and culture mid chest, excision skin tag right thigh - Alon Ray MD Physical Therapy Treatment Note M2 PT-IP Current Condition Start: 01/18/19 12:30 Freq: NEEDED Status: Active Protocol: Document 01/18/19 16:02 AW (Rec: 01/18/19 16:32 AW [id number]) Physical Therapy Current Condition Current Condition Evaluation Date 01/18/19 Treatment Diagnosis altered mental status, impaired bed mobility, transfers, gait Weight Bearing Status Weight Bearing Status Full Weight Bearing M3 PT-IP Subjective Start: 01/18/19 12:30 Freq: NEEDED Status: Active Protocol: Document 01/21/19 15:35 GGD (Rec: 01/21/19 16:46 GGD [id number]) Subjective Physical Therapy Visit Type Type Treatment Note Visit Start Time 15:14 Visit Stop Time 15:35 Total Visit Minutes 21 Notes Co-treated with OT Number of DIE CUTTER Visits 2 M4 PT-IP Mobility and Gait Start: 01/18/19 12:30 Freq: NEEDED Status: Active Protocol: Document 01/21/19 15:35 GGD (Rec: 01/21/19 16:46 GGD [id number]) PT-Bed Mobility Assessment Supine to Sit Supine to Sit Maximum Assistance,2 Person Assistance,Head of Bed Elevated Sit to Supine Sit to Supine Maximum Assistance,2 Person Assistance Scooting Scooting to Edge of Bed Maximum Assistance PT-Transfer Assessment Sit to and From Stand Sit to and from Stand Maximum Assistance,2 Person Assistance,Use of Upper Extremities Equipment Transfer Assistive Device Gait Belt,Standard Walker Orthotic/Prosthetic Devices or Brace: No Comments Mobility Comments Pt sit to stand at EOB x 3 times with max x 2. She unable to stand up right. M5 PT-IP Objective Assessments Start: 01/18/19 12:30 Freq: NEEDED Status: Active Protocol: Document 01/18/19 16:02 AW (Rec: 01/18/19 16:32 AW [id number]) Orientation Orientation/Cognition Level of Alertness Confusional State Language Function Ability Garbled Speech Safety Awareness Decreased Safety Awareness Gross Range of Motion Upper Extremity ROM Assessment Bilaterally Impaired Impairments Shoulder elevation limited bilaterally, ~110 degrees on the right, 90 degrees on the left Lower Extremity ROM Assessment Bilaterally Impaired Strength Upper Extremity Strength Assessment Bilaterally Impaired Lower Extremity Strength Assessment Bilaterally Impaired Comments Strength Comments Pt was able to follow simple commands for manual muscle testing. BLE grossly 3+/5 in al major muscle groups Coordination Assessment Gross Coordination Gross Coordination WNL Sensation Assessment Comments Sensation Comments Unable to assess Muscle Tone Muscle Tone WNL Yes M6 PT-IP Treatment Start: 01/18/19 12:30 Freq: NEEDED Status: Active Protocol: Document 01/20/19 11:11 CLB (Rec: 01/20/19 13:08 CLB [id number]) Physical Therapy Treatment Exercises Exercises Ankle Pumps,Quad Sets,Heel Slides,Seated Knee Flexion/ Extension M7 PT-IP Assessment and Plan Start: 01/18/19 12:30 Freq: NEEDED Status: Active Protocol: Document 01/21/19 15:35 GGD (Rec: 01/21/19 16:46 GGD [id number]) PT Summary Assessment and Plan Summary Assessment Summary Pt is max a for all mobility. She was able to sit on EOB with CGA. She able to assist with LE for sit to supine. Pt would benefit from SNF rehab to improved functional transfers and bed mobility. Frequency of Treatment Frequency Of Treatment Once a Day Treatment Plan Other Recommendations and Next Treatment bed mobility, squat pivot Focus Recommendations To Nursing Amount of Assist Needed 2 Person Assist Discharge Recommendations PT Discharge Recommendations SNF Rehab
--- NOTE | 2019-01-21 16:59 | OT.IP.TRT ---
Current Diagnoses Type 2 diabetes mellitus without complications (01/17/19) Altered mental status, unspecified (01/17/19) Surgery Performed Operation Date: 01/19/19 17:15 Actual Procedures p Excision ulcerative lesion mid left sided back, wound exploration and culture mid chest, excision skin tag right thigh - Alon Ray MD Occupational Therapy Treatment Note M2 OT-IP Current Condition Start: 01/19/19 10:15 Freq: Status: Active Protocol: Document 01/20/19 11:50 PJM (Rec: 01/20/19 13:47 PJM [id number]) Occupational Therapy Current Condition Current Condition Evaluation Date 01/20/19 Treatment Diagnosis decreased self care, mobility, BUE function w/altered mental status Diagnosis Onset Date 01/17/19 Post Operative Precautions Other Precautions fall risk, non ambulatory, surgical excision of wound on R thigh, chest and back 01/19/19 M3 OT- IP Subjective and Pain Start: 01/19/19 10:15 Freq: Status: Active Protocol: Document 01/21/19 16:38 CCC (Rec: 01/21/19 16:59 CCC [id number]) OT- Subjective Occupational Therapy Visit Type Type Treatment Note Visit Start Time 15:14 Visit Stop Time 15:51 Total Visit Minutes 37 Occupational Therapy Visit Comments Patient Comments Pt cooperative and able to follow one step commands. Patient/Caregiver Goals Pt's family wanting pt to go to skilled rehab. OT Pain Assessment Pain When Pain Assessed After Treatment Pain Present Pain Present Denied Pain M4 OT- IP ADL's Start: 01/19/19 10:15 Freq: Status: Active Protocol: Document 01/20/19 11:50 PJM (Rec: 01/20/19 13:47 PJM [id number]) OT [id number] General Evaluation Self-Feeding Ability Standby Assistance Comments OT Self-Feeding Comments Pt needs full meal tray set up , then feeds self with R hand with intermittent supervision. OT ADL-Grooming General Evaluation Grooming Ability Standby Assistance,Moderate Assistance Areas Needing Assistance Combing/Brushing Hair,Face Washing Comments OT Grooming Comments SBA with face washing in bed, mod assist with brushing back of hair seated EOB OT ADL-Oral Care General Eval Oral Care Ability Total Assistance Areas of Assistance Managing Dentures OT ADL-Dressing General Eval Upper Body Dressing Ability Maximum Assistance Lower Body Dressing Ability Total Assistance Comments OT Dressing Comments pt participates in gown change and has potential to be more indep with upper body dressing OT ADL-Toileting General Evaluation Toileting Ability Total Assistance Areas Needing Assistance Manage Clothing,Perform Perineal Hygiene Comments OT Toileting Comments pt incontinent in bed per family, wears adult diaper OT ADL-Bathing Bathing Type Bathing Type Bed Bath General Evaluation Bathing Ability Total Assistance M5 OT- IP IADL's Start: 01/19/19 10:15 Freq: Status: Active Protocol: Document 01/20/19 11:50 PJM (Rec: 01/20/19 13:47 PJM [id number]) OT-Instrumental Activities of Daily Living Deficits IADL Deficits Identified Deficits Home Safety Awareness Home Safety Comments pt dependent with all IADLS Medication Management Medication Management Caregiver Administers Money Management Money Management Caregiver Provides Assistance Meal Preparation Meal Preparation Caregiver Provides Assist Saddle Tree Stitcher Saddle Tree Stitcher Caregiver Provides Assist Driving Driving Caregiver Provides Assist M6 OT- IP Functional Cognition Start: 01/19/19 10:15 Freq: Status: Active Protocol: Document 01/21/19 16:38 [facility] (Rec: 01/21/19 16:59 [facility] [id number]) Cognitive Factors Limiting Selfcare Function Cognitive Ability Level of Alertness Alert Patient Orientation Name Attention Span Ability Capable of Focused Attention Ability to Follow Commands Able to Follow One Step Commands with Increased Time Cognitive Tests SLUMS Pt score 6/30 which implies dementia, Pt's family states her cognition fluctuate daily and that they do assist her with medication and finances. Cognitive Comments Cognitive Assessment Comments Pt doing better to follow commands and able to answer questions today about home safety, wants and needs. M7 OT- IP Mobility and Balance Start: 01/19/19 10:15 Freq: Status: Active Protocol: Document 01/21/19 16:38 [facility] (Rec: 01/21/19 16:59 [facility] [id number]) OT- Bed Mobility Assessment Rolling Level of Assistance Maximum Assistance,2 Person Assistance OT-Transfer Assessment Sit to and From Stand Sit to and from Stand Maximum Assistance,2 Person Assistance Comments Mobility Comments Pt able to come to stand with MAX A X 2. At this time, better to focus on functional mobility to get to drop arm command and wc via squat pivot as prior pt's states was able to assist pt. OT- Balance Assessment Sitting Balance and Reactions Static Sitting Balance Ability Fair Dynamic Sitting Balance Ability Poor Standing Balance and Reactions Static Standing Balance Ability Poor M8 OT- IP Objective Assessments Start: 01/19/19 10:15 Freq: Status: Active Protocol: Document 01/20/19 11:50 PJM (Rec: 01/20/19 13:47 PJM [id number]) OT Gross Range of Motion Upper Extremity Range of Motion Assessment Bilaterally Impaired ROM Impairments R shoulder scption limited to ~70 degrees, distal AROM WFL, but slow compared to L L shoulder scpation limited to ~90 degrees, distal AROM WFL OT Strength Upper Extremity Strength Assessment Bilaterally Impaired Shoulder R scaption 3-/5 L scaption 3+/5 Elbow R flex 4-/5, ext 4-/5 L flex 4/5, ext 4/5 Forearm R 3-/5 L 4/5 Wrist R ext 3-/5 L 4/5 Hand R air moving technician 3+/5 L air moving technician 4-/5 Hand Build Master Strength Hand Dominance Right Comments Strength Comments RUE weaker than LUE, pt had R humeral fx 6 months ago per OT- Coordination Assessment Comments Coordination Comments RUE has decreased/slowed isolated movement in forearm, wrist and fingers compared to L, but pt using it dominantly for self care tasks OT-Muscle Tone Assessment Muscle Tone WNL Yes OT Sensation Assessment Comments Summary Comments to be assessed M9 OT- IP Assessment and Plan Start: 01/19/19 10:15 Freq: Status: Active Protocol: Document 01/21/19 16:38 [facility] (Rec: 01/21/19 16:59 CCC [id number]) OT Summary Assessment and Plan Potential Rehabilitation Potential Fair Analytic Complexity at Evaluation Moderate Summary OT Impairments Range of Motion,Strength, Balance,Coordination, Functional Cognition, Functional Mobility,Grooming, Dressing,Toileting,Bathing, Toilet Transfers,Shower Transfers Progress Towards Goals Progressing Toward Goals Assessment Summary Pt able to tolerate standing x 3 with MAX A x 2 to FWW. Pt actively trying to participate and able to weight bear through her arms and legs. Pt would benefit from skilled rehab to continue to focus on improving functional mobility especially to BSC and WC, continue to give pt opportunities to improve for self care and mobility needs. Goals Grooming Goal Minimal Assistance Dressing Goal Minimal Assistance Bathing Goal Minimal Assistance Toilet Transfer Goal Moderate Assistance,Bedside Commode OT-Other Goals Dressing goal is for upper body dressing in chair. Bathing goal is for upper body sponge bath in chair. Days to Meet Goals 7 Frequency of Treatment Frequency Of Treatment Once a Day Treatment Plan OT Treatment Plan ADL Training,Functional Cognition Training,Functional Mobility,Therapeutic Exercises ,Patient/Family Education, Discharge Planning Discharge Recommendations OT Discharge Recommendations SNF Rehab
--- NOTE | 2019-01-21 17:30 | P.PN_ITS ---
Subjective Subjective Date Patient Seen: 01/21/19 Time Patient Seen: 17:30 Interval history: This is an 83-year-old female patient who was admitted to the hospital related to altered mental status with confusion, disorientation and hallucinations, progressive weakness, labile blood pressure with pressures up into 200s, atrial fibrillation. She is now POD #2 status post excision of a back lesion, a skin tag, and debridement of another wound on her chest. Her men lewis status has seemingly returned to baseline. We are currently awaiting approval from [place] for possible SNF rehab which is recommended by Physical therapy and Occupational therapy. The patient had no complaints today but only responds with yes or no questions. Exam Vital Signs (past 8 hours): - 01/21/19 12:00 01/21/19 13:00 01/21/19 15:59 Temperature 97.5 F L 97.8 F Pulse Rate 59 L 83 Respiratory Rate 20 16 Blood Pressure 160/63 H 181/98 H Pulse Oximetry 98 95 98 Fraction of Inspired Oxygen 24 Oxygen Delivery Method Room Air Oxygen Flow Rate 0 Narrative Exam Narrative: GENERAL APPEARANCE: Somnolent but arousable, answers yes or no to questions. SKIN: Inspection of the skin reveals no rashes, ulcerations or petechiae. Dr moncada are C/D/I. HEENT: The sclerae were anicteric and conjunctivae were pink and moist. Extraocu lar movements were intact and pupils were equal, round with normal accommodation. External inspection of the ears and nose showed no scars, lesions, or masses. Lips, teeth, and gums showed normal mucosa. The oral mucosa, hard and soft palate, tongue and posterior pharynx were unremarkable. NECK: Supple and symmetric. There was no thyroid enlargement, and no tenderness, or masses were felt. CHEST: Normal AP diameter and normal contour without any kyphoscoliosis. LUNGS: Auscultation of the lungs revealed no wheezes, rhonchi, or rales. CARDIOVASCULAR: There was a regular rate and rhythm without any murmurs, gallops, rubs. Peripheral pulses were 2+ and symmetric. ABDOMEN: Soft and nontender with normal bowel sounds. No ascites was noted. MUSCULOSKELETAL: There was no tenderness or effusions noted. Muscle strength and tone were normal. EXTREMITIES: No cyanosis, clubbing or edema. Objective Labs Result Diagrams: 01/17/19 16:00 01/18/19 19:00 Assessment & Plan Assessment & Plan narrative: This is an 83-year-old female patient who was admitted to the hospital related to altered mental status occurring over the last 3 days with confusion, disorientation and hallucinations, progressive weakness, labile blood pressure with pressures up into 200s, atrial fibrillation with slow ventricular response. 1. Acute delirium on chronic dementia, present on admission, active - she had improved yesterday but is slightly more somnolent secondary to operative interventions. -multiple potential etiologies, differential diagnosis: -history prior CVA, left facial droop has improved, unclear if new versus residual from prior CVA. Patient stated headache. -patient has a mechanical heart valve and is unable to undergo MRI, so CTA was done and unremarkable., with adequate renal function with a creatinine of 0.7 -patient with poor oral intake and appearing dehydrated with a BUN of 28 creatinine of 0.7, sodium is normal at 143. -gently rehydrate with history of cardiomyopathy, 1/2 normal saline at 50 cc/hour. -confusion may be related to elevated blood pressures, hypertensive urgency, presence of headache. Blood pressure exceeding stroke limit of 220/110. -holding atenolol due to persistent atrial fibrillation with slow ventricular response in the 40-50s range -will increase lisinopril to 20 mg daily. -will track blood pressures while holding atenolol. -May also be related to bradycardia, which is improving now that we are holding atenolol. -no evidence of sepsis with a normal white count of 6.6, lactate of 1.2, procalcitonin of less than 0.05, urinalysis negative and chest x-ray is clear. -GI PCR panel is negative, blood cultures are negative. 2. Diabetes type 2 insulin dependent, controlled, active -patient's blood sugar on admission was 112. No reports of hypoglycemia or hyperglycemia at home. -blood sugar checks a.c. and HS -low range correctional insulin. -moderate constant carbohydrate diet. 3. Chronic hypertension, present on admission, active -Blood pressure exceeding stroke limit of 220/110. -patient's routine atenolol currently dosed at 25 mg twice daily will need to be held due to bradycardia. EKG done for possible junctional rhythm appears to show atrial fibrillation with slow ventricular response.. -increase lisinopril to 20 mg tomorrow, 10 mg additional to be given this evening. -hydralazine 10 mg IV every 6 hours as needed SBP greater than 180 -will track blood pressures and HR. 4. Prior history CV, active -unclear the patient's left facial droop is new or residual from prior event. -patient has not been on anticoagulation -started aspirin 81 mg daily -PT and OT are following, evaluate and treat -speech therapy are following, evaluate and treat 5. Necrotic skin lesion upper back, present on admission, active- no s/p excisi on with General Surgery -beefy red 2.5 cm bleeding slightly raised mass lesion now s/p excision. -General surgery consult for biopsy and excision. Appreciate Assistance. -no evidence of possible metastases if found cancerous with negative abdominal and head CT as well as chest x-ray. Dispo: Likely home health or possibly SNF pending [place] approval.
[2019-01-21] MEDS: HEPARIN 5,000 UNIT/ML VIAL 5000 UNIT SUBCUT (22:24)
--- NOTE | 2019-01-21 23:21 | PC.NURSE ---
Evening note: All 3 drsgs at biopsy sites changed tonight. Gauze drsg to upper middle back soiled, mostly saturated with sero-sang drainage. Suture line is intact, well approximated, small amt of sanguineous drainage seeping from suture line. Site covered with coversite. Drsg to anterior chest removed, soiled with scant sero-sang. Small cover site applied. Bandaid to right thigh mostly soiled with sang drainage, one suture visible, new bandaid applied.
[2019-01-22 00:04] VITALS: O2SAT 95
[2019-01-22 04:04] VITALS: O2SAT 97
[2019-01-22 04:09] VITALS: BP 144/69; PULSE 72; RESP 18; TEMP 36.4; O2SAT 99
[2019-01-22 08:00] VITALS: BP 193/70; PULSE 78; RESP 18; TEMP 37.1; O2SAT 100; O2SAT 94
[2019-01-22] MEDS: ASPIRIN EC 81 MG TABLET PO (08:29)
[2019-01-22] MEDS: DOCUSATE 100 MG CAPSULE PO (08:29)
[2019-01-22] MEDS: LISINOPRIL 10 MG TABLET 20 MG PO (08:30)
[2019-01-22] MEDS: HEPARIN 5,000 UNIT/ML VIAL 5000 UNIT SUBCUT (08:30)
[2019-01-22] MEDS: SODIUM CHLORIDE 0.45% 1,000 ML 50 ML IV (09:23)
--- NOTE | 2019-01-22 10:19 | SLP.IPNOTE ---
Attempted to see pt for swallow therapy. Pt was asleep. When asked if she would like to get up, pt refused I'm sleepy. Daughter in room with pt. Daughter concerned re: sleepiness. Daughter remarked that pt's swallow has improved since admission. Will try to see pt later today
[2019-01-22] MEDS: LISINOPRIL 20 MG TABLET PO (11:25)
[2019-01-22 12:00] VITALS: BP 187/74; PULSE 64; RESP 18; TEMP 37.1; O2SAT 100; O2SAT 94
[2019-01-22] MEDS: INSULIN ASPART 100 UNIT/ML INSULN PEN SUBCUT (12:27)
[2019-01-22] MEDS: NYSTATIN CREAM 30 GM 1 APPLIC TOP (12:28)
--- NOTE | 2019-01-22 13:29 | ST.IPDYTX ---
CREDIT ANALYST Dysphagia Treatment CREDIT ANALYST Dysphagia Treatment Start: 01/20/19 14:54 Freq: Status: Active Protocol: Document 01/22/19 13:19 TLC (Rec: 01/22/19 13:29 TLC [email or web address]) Dysphagia Treatment Session Time Visit Start Time 13:00 Visit Stop Time 13:20 Total Visit Minutes 20 Visit Information Visit Number 3 Setting Assessment Location Acute Care Visit Type Note Type Treatment Note Patient Information Subjective Observations Patient seen lying in bed awake with lunch tray in room. Patient had eaten cottage cheese and some of the pudding , but had not eaten the soup or apple sauce. Patient's daughter and another visitor were present in the room. Treatment Liquids Trialed Thin Administration Type Self-Feeding Oral Strategies Upright at 90 degrees, Controlled Bite/Sip Size, Alternate Liquids/Solids Pharyngeal Strategies Small Bites and Sips Treatment Activities Patient was oriented to self, age and place (hospital), but not to city or state. Her daughter verbally recalled recommendations for cup sips only (no straw). Patient refused further solid trials, but agreed to a few sips of water. She self-administered cup sips of water with no signs of aspiration. Observed ~4 second swallow initiation delay. Patient was unable to initate a dry swallow on multiple attempts. Frozen lemon glycerine swabs were used to elicit swallow initiation, but after three repetitions, patient refused further therapy stating I want to go to bed. Assessment Patient Response to Treatment Fair Rehab Potential Fair Assessment of Improvement Patient needs verbal cues for strategies due to cognitive impairments. When cued, she demonstrates good follow- through. Diet Recommendations Recommendations Continue Current Diet Liquids Order Thin Diet Order Dysphagia Blenderized Medication Recommendations As Tolerated Additional Dietary Needs Controlled Sips,No Straws,1:1 Assistance,Reminders to Use Strategies Aspiration Precautions Recommended Precautions Upright at 90 Degrees, Alternate Liquids/Solids,Small Bites/Sips Treatment Plan Placement Recommendation after Discharge [facility] Facility Appropriate for Continued Therapy Yes Therapy Recommendations Added goals for orientation Dysphagia Goals Patient will implement safe swallow strategies/precautions recommended given minimal verbal assistance in order to increase independence and safety during meals. Patient will verbally demonstrate orientation to day , time, place, situation in order to improve her orientation to environment and improve safety.
--- NOTE | 2019-01-22 17:01 | PT.IPTN ---
Current Diagnoses Type 2 diabetes mellitus without complications (01/17/19) Altered mental status, unspecified (01/17/19) Surgery Performed Operation Date: 01/19/19 17:15 Actual Procedures p Excision ulcerative lesion mid left sided back, wound exploration and culture mid chest, excision skin tag right thigh - Alon Ray MD Physical Therapy Treatment Note M2 PT-IP Current Condition Start: 01/18/19 12:30 Freq: NEEDED Status: Active Protocol: Document 01/18/19 16:02 AW (Rec: 01/18/19 16:32 AW [id number]) Physical Therapy Current Condition Current Condition Evaluation Date 01/18/19 Treatment Diagnosis altered mental status, impaired bed mobility, transfers, gait Weight Bearing Status Weight Bearing Status Full Weight Bearing M3 PT-IP Subjective Start: 01/18/19 12:30 Freq: NEEDED Status: Active Protocol: Document 01/22/19 16:54 GGD (Rec: 01/22/19 17:01 GGD [id number]) Subjective Physical Therapy Visit Type Type Treatment Note Visit Start Time 16:10 Visit Stop Time 16:50 Total Visit Minutes 40 Notes Co-treated with OT Number of DISCIPLINARY HEARING OFFICER Visits 3 Physical Therapy Visit Comments Patient Comments Pt willing to work with therapy. M4 PT-IP Mobility and Gait Start: 01/18/19 12:30 Freq: NEEDED Status: Active Protocol: Document 01/22/19 16:54 GGD (Rec: 01/22/19 17:01 GGD [id number]) PT-Bed Mobility Assessment Rolling Type of Rolling Roll to Left Level of Assist Minimal Assistance Supine to Sit Supine to Sit Moderate Assistance,1 Person Assistance,Head of Bed Elevated Sit to Supine Sit to Supine Moderate Assistance,2 Person Assistance Scooting Scooting to Edge of Bed Moderate Assistance PT-Transfer Assessment Sit to and From Stand Sit to and from Stand Moderate Assistance,1 Person Assistance Equipment Transfer Assistive Device None,Gait Belt Orthotic/Prosthetic Devices or Brace: No Transfers Transfer Destination Chair Transfer Technique Squat Pivot Transfer Ability Level of Assist Moderate Assistance,1 Person Assistance M5 PT-IP Objective Assessments Start: 01/18/19 12:30 Freq: NEEDED Status: Active Protocol: Document 01/18/19 16:02 AW (Rec: 01/18/19 16:32 AW [id number]) Orientation Orientation/Cognition Level of Alertness Confusional State Language Function Ability Garbled Speech Safety Awareness Decreased Safety Awareness Gross Range of Motion Upper Extremity ROM Assessment Bilaterally Impaired Impairments Shoulder elevation limited bilaterally, ~110 degrees on the right, 90 degrees on the left Lower Extremity ROM Assessment Bilaterally Impaired Strength Upper Extremity Strength Assessment Bilaterally Impaired Lower Extremity Strength Assessment Bilaterally Impaired Comments Strength Comments Pt was able to follow simple commands for manual muscle testing. BLE grossly 3+/5 in al major muscle groups Coordination Assessment Gross Coordination Gross Coordination WNL Sensation Assessment Comments Sensation Comments Unable to assess Muscle Tone Muscle Tone WNL Yes M6 PT-IP Treatment Start: 01/18/19 12:30 Freq: NEEDED Status: Active Protocol: Document 01/22/19 16:54 GGD (Rec: 01/22/19 17:01 GGD [id number]) Physical Therapy Treatment Exercises Exercises Ankle Pumps,Gluteal Sets,Heel Slides,Straight Leg Raises, Short Arc Quads Other Treatments Other Treatment Performed family training for transfers, bed mobility and bed exercises. M7 PT-IP Assessment and Plan Start: 01/18/19 12:30 Freq: NEEDED Status: Active Protocol: Document 01/22/19 16:54 GGD (Rec: 01/22/19 17:01 GGD [id number]) PT Summary Assessment and Plan Summary Assessment Summary Pt improving with mobility. She was able to assist with transfer to chair with reaching to the left and increase in LE assist. She unable to stand, but able to transfer with squat pivot. She would benefit SNF to improve functional mobility for safe home care and strengthening. Frequency of Treatment Frequency Of Treatment Once a Day Treatment Plan Physical Therapy Treatment Plan Bed Mobility Training,Transfer Training,Gait Training, Therapeutic Exercise,Balance Retraining,Post Op Education, Discharge Planning,Hot or Cold Pack,Neuromuscular Re-ed, Coordination Retraining,Manual Therapy Recommendations To Nursing Amount of Assist Needed 2 Person Assist Discharge Recommendations PT Discharge Recommendations SNF Rehab
--- NOTE | 2019-01-22 17:03 | OT.IP.TRT ---
Current Diagnoses Type 2 diabetes mellitus without complications (01/17/19) Altered mental status, unspecified (01/17/19) Surgery Performed Operation Date: 01/19/19 17:15 Actual Procedures p Excision ulcerative lesion mid left sided back, wound exploration and culture mid chest, excision skin tag right thigh - Alon Ray MD Occupational Therapy Treatment Note M2 OT-IP Current Condition Start: 01/19/19 10:15 Freq: Status: Active Protocol: Document 01/20/19 11:50 PJM (Rec: 01/20/19 13:47 PJM [id number]) Occupational Therapy Current Condition Current Condition Evaluation Date 01/20/19 Treatment Diagnosis decreased self care, mobility, BUE function w/altered mental status Diagnosis Onset Date 01/17/19 Post Operative Precautions Other Precautions fall risk, non ambulatory, surgical excision of wound on R thigh, chest and back 01/19/19 M3 OT- IP Subjective and Pain Start: 01/19/19 10:15 Freq: Status: Active Protocol: Document 01/22/19 16:54 CCC (Rec: 01/22/19 17:03 CCC [email or web address]) OT- Subjective Occupational Therapy Visit Type Type Treatment Note Visit Start Time 16:10 Visit Stop Time 16:50 Total Visit Minutes 40 Occupational Therapy Visit Comments Patient Comments Pt agreeable to try to transfer to [facility]. OT Pain Assessment Pain When Pain Assessed At Rest Pain Present Pain Present Denied Pain M4 OT- IP ADL's Start: 01/19/19 10:15 Freq: Status: Active Protocol: Document 01/20/19 11:50 PJM (Rec: 01/20/19 13:47 PJM [id number]) OT ISD-Sfdd-Ensgegc General Evaluation Self-Feeding Ability Standby Assistance Comments OT Self-Feeding Comments Pt needs full meal tray set up , then feeds self with R hand with intermittent supervision. OT ADL-Grooming General Evaluation Grooming Ability Standby Assistance,Moderate Assistance Areas Needing Assistance Combing/Brushing Hair,Face Washing Comments OT Grooming Comments SBA with face washing in bed, mod assist with brushing back of hair seated EOB OT ADL-Oral Care General Eval Oral Care Ability Total Assistance Areas of Assistance Managing Dentures OT ADL-Dressing General Eval Upper Body Dressing Ability Maximum Assistance Lower Body Dressing Ability Total Assistance Comments OT Dressing Comments pt participates in gown change and has potential to be more indep with upper body dressing OT ADL-Toileting General Evaluation Toileting Ability Total Assistance Areas Needing Assistance Manage Clothing,Perform Perineal Hygiene Comments OT Toileting Comments pt incontinent in bed per family, wears adult diaper OT ADL-Bathing Bathing Type Bathing Type Bed Bath General Evaluation Bathing Ability Total Assistance M5 OT- IP IADL's Start: 01/19/19 10:15 Freq: Status: Active Protocol: Document 01/20/19 11:50 PJM (Rec: 01/20/19 13:47 PJM [id number]) OT-Instrumental Activities of Daily Living Deficits IADL Deficits Identified Deficits Home Safety Awareness Home Safety Comments pt dependent with all IADLS Medication Management Medication Management Caregiver Administers Money Management Money Management Caregiver Provides Assistance Meal Preparation Meal Preparation Caregiver Provides Assist Book Jacket Cover Machine Operator Book Jacket Cover Machine Operator Caregiver Provides Assist Driving Driving Caregiver Provides Assist M6 OT- IP Functional Cognition Start: 01/19/19 10:15 Freq: Status: Active Protocol: Document 01/22/19 16:54 [facility] (Rec: 01/22/19 17:03 [facility] [id number]) Cognitive Factors Limiting Selfcare Function Cognitive Ability Level of Alertness Alert Patient Orientation Name Attention Span Ability Capable of Focused Attention Ability to Follow Commands Able to Follow One Step Commands with Increased Time Cognitive Comments Cognitive Assessment Comments Pt able to follow commands with increased time. M7 OT- IP Mobility and Balance Start: 01/19/19 10:15 Freq: Status: Active Protocol: Document 01/22/19 16:54 [facility] (Rec: 01/22/19 17:03 [facility] [id number]) OT- Bed Mobility Assessment Rolling Level of Assistance Minimal Assistance,1 Person Assistance Supine to Sit Supine to Sit Assist Moderate Assistance,2 Person Assistance OT-Transfer Assessment Transfers Transfer Ability Moderate Assistance,Maximum Assistance,2 Person Assistance Technique Transfer Destination Bed,Chair Transfer Technique Squat Pivot Devices Transfer Assistive Devices Gait Belt Comments Mobility Comments Pt able to use left hand to help reach out to the recliner as therapists able to squat pivot over to the recliner, MODA x2. On the way back pt able to hold to therapist and needing MAX A X 2 back to the bed. OT- Balance Assessment Comments Other Balance Tests/Deviations/Treatment After pt given assist to get : feet on the floor able to sit upright with SBA. Otherwise pt tends to lean backwards. M8 OT- IP Objective Assessments Start: 01/19/19 10:15 Freq: Status: Active Protocol: Document 01/20/19 11:50 PJM (Rec: 01/20/19 13:47 PJM [id number]) OT Gross Range of Motion Upper Extremity Range of Motion Assessment Bilaterally Impaired ROM Impairments R shoulder scption limited to ~70 degrees, distal AROM WFL, but slow compared to L L shoulder scpation limited to ~90 degrees, distal AROM WFL OT Strength Upper Extremity Strength Assessment Bilaterally Impaired Shoulder R scaption 3-/5 L scaption 3+/5 Elbow R flex 4-/5, ext 4-/5 L flex 4/5, ext 4/5 Forearm R 3-/5 L 4/5 Wrist R ext 3-/5 L 4/5 Hand R regional truck driver 3+/5 L regional truck driver 4-/5 Hand Care Management Specialist Strength Hand Dominance Right Comments Strength Comments RUE weaker than LUE, pt had R humeral fx 6 months ago per OT- Coordination Assessment Comments Coordination Comments RUE has decreased/slowed isolated movement in forearm, wrist and fingers compared to L, but pt using it dominantly for self care tasks OT-Muscle Tone Assessment Muscle Tone WNL Yes OT Sensation Assessment Comments Summary Comments to be assessed M9 OT- IP Assessment and Plan Start: 01/19/19 10:15 Freq: Status: Active Protocol: Document 01/22/19 16:54 CCC (Rec: 01/22/19 17:03 CCC [email or web address]) OT Summary Assessment and Plan Potential Rehabilitation Potential Fair Analytic Complexity at Evaluation Moderate Summary OT Impairments Range of Motion,Strength, Balance,Coordination, Functional Cognition, Functional Mobility,Grooming, Dressing,Toileting,Bathing, Toilet Transfers,Shower Transfers Progress Towards Goals Progressing Toward Goals Assessment Summary Pt going home with family and able to thoroughly go through home exercises from BUTTON BREAKER and questions to ask when home health arrives to work with pt . Pt's daughter very motivated to work with the pt to help get her stronger and better. Discharge Recommendations OT Discharge Recommendations SNF Rehab Home Equipment Needs Broderick lift.
--- NOTE | 2019-01-22 17:49 | PM.DS.1 ---
History of Present Illness History of Present Illness Date Patient Seen: 01/22/19 Time Patient Seen: 10:45 Chief complaint: sepsis Narrative: As per ANTONIA Alfonso: Ms. Mary Casiano is an 83-year-old female with a history significant for atrial fibrillation, hypertension, type 2 diabetes on insulin, history of polio, prior CVA and malignant melanoma who presents to the hospital with altered mental status. History is obtained from the patient's daughters the patient is unable to contribute meaningful information and is oriented to self only. Per the daughter the patient had rather abrupt change in her health and mental status 3 days ago. The daughter describes increased confusion with hallucinations, weakness, labile blood pressure that has been markedly elevated and slow heart rate down as low as the 40s. The daughter is concerned related to sepsis and concern for possible C difficile since the patient has been having diarrhea and was on antibiotic 1 month ago for what appears to be a cancerous skin lesion on her back. Patient lives at with her and the daughter providing care and has previously been on hospice apparently related to deteriorating cardiac status but she improved is now receiving care from [facility] 2 times weekly. The patient does complain of a frontal headache and has pain over left upper back the location of her skin lesion. She denies fevers or chills, chest pain, shortness of breath, abdominal pain, nausea vomiting. The patient has been essentially bed-bound per the daughter and over the last 3 days has been nonambulatory. In the ER upon arrival the patient is found to be afebrile with temperature of 98.2?, blood pressure 148/90, heart rate of 56 in atrial fibrillation with respirations 16 saturating 100% on air. While in the ER the patient has had labile blood pressures up to 214/97 returning back to the 160s. Patient underwent a head CT which found no acute intracranial processes S well as an abdominal CT which found severe constipation with obstipation proctitis colitis. Chest x-ray was obtained which found cardiomyopathy without evidence pulmonary congestion or heart failure with no infiltrates. EKG is atrial fibrillation with a ventricular rate of 52 marked left axis deviation, left ventricular hypertrophy, with Q-waves in the anterior V leads as well as his 3 nerve consistent with anterior and inferior ND. The patient does appear to have mild ST to depression in V5 and 6. On laboratory analysis she has normal white count 6.6, hemoglobin of 12.5 and hematocrit 38.1 and platelets of 226. Her electrolytes are within normal rib limits however her BUN is 28 with a creatinine 0.7 nonfasting glucose 112. Her coags within normal limits and urinalysis negative she has a negative procalcitonin less than 0.05 and a lactate of 1.2. She has a troponin of 0.014 and a normal TSH of 0.74. Her LFTs and ammonia are all within normal limits. The patient is admitted for further evaluation of altered mental status. Discharge Providers Provider Date of admission: 01/17/19 19:18 Discharge Date: 01/22/19 Primary care physician: Earl Bacon MD Consults: 01/17/19 21:56 Consult to Dietitian, Adult Routine Comment: Reason For Exam: Low joaquina score Consult to Rehabilitation Program Manager Routine Comment: 01/18/19 00:31 Consult to Occupational Therapy Evaluate & Treat Comment: Hx CVA, AMS, rule out new CVA, Gen weakness Physician Instructions: Evaluate and treat Consult to Physical Therapy Evaluate & Treat Comment: Hx CVA, AMS, rule out new CVA, Gen weakness Physician Instructions: Evaluate and Treat Consult to Speech Therapy Evaluate & Treat Comment: Hx CVA, AMS, rule out new CVA Physician Instructions: Evaluate and treat 01/18/19 00:36 Consult to Physician Routine Comment: Consulting Provider: Raffy Ring Reason for consultation: Cancerous appeaaring lesion left upper back. Has provider been notified: No Discharge provider: Tobias Montes DO Summary Hospital Course Discharge Diagnosis: 1. Acute delirium on chronic dementia, present on admission, active - 2. Diabetes type 2 insulin dependent, controlled, active 3. Chronic hypertension, present on admission, active 4. Prior history CV, active 5. Necrotic skin lesion upper back, present on admission, active- Hospital Course: This is an 83-year-old female patient who was admitted to the hospital related to altered mental status occurring over the last 3 days with confusion, disorientation and hallucinations, progressive weakness, labile blood pressure with pressures up into 200s, atrial fibrillation with slow ventricular response. Her mental status improved throughout her stay, this may have been due her bradycardia on presentation from atenolol. She had widely variable blood pressures, including on admission but this is unlikely the source of her confusion and can be managed as an outpatient. She was titrated up with lisinopril and on the day of discharge she was receiving 40 mg daily. She had an extended stay due to pending [place] approval for possible SNF placement, but she was ultimately discharged home with home health. 1. Acute delirium on chronic dementia, present on admission, active - she had improved yesterday but is slightly more somnolent secondary to operative interventions. -multiple potential etiologies, differential diagnosis: -history prior CVA, possible TIA given left facial droop but this improved, unclear if new versus residual from prior CVA. -patient has a mechanical heart valve and is unable to undergo MRI, so CTA was done and unremarkable., with adequate renal function with a creatinine of 0.7 -patient with poor oral intake and appearing dehydrated on arrival and improved fluid hydration. -confusion may be related to elevated blood pressures, hypertensive urgency, presence of headache. Blood pressure exceeding stroke limit of 220/110. -holding atenolol due to persistent atrial fibrillation with slow ventricular response in the 40-50s range -her blood pressures remained highly variable during her stay although they were somewhat improved as did her mentation. -May also be related to bradycardia, which is improved now that we are holding atenolol. -no evidence of sepsis with a normal white count of 6.6, lactate of 1.2, procalcitonin of less than 0.05, urinalysis negative and chest x-ray is clear. -GI PCR panel is negative, blood cultures are negative. 2. Diabetes type 2 insulin dependent, controlled, active -patient to resume home medications. 3. Chronic hypertension, present on admission, active -Blood pressure exceeding stroke limit of 220/110 on admission, her blood pressures remained highly variable but her mentation is improved. Her blood pressure can be managed as an outpatient -patient's routine atenolol currently dosed at 25 mg twice daily will need to be held due to bradycardia. EKG done for possible junctional rhythm appeared to show atrial fibrillation with slow ventricular response.. -increase lisinopril to 40 mg daily, patient will be discharged home on this and follow up with primary care. 4. Prior history CV, active -unclear the patient's left facial droop is new or residual from prior event, this resolved -patient has not been on anticoagulation -started aspirin 81 mg daily -PT and OT are following, evaluate and treat -speech therapy are following, evaluate and treat 5. Necrotic skin lesion upper back, present on admission, active- no s/p excision with General Surgery -beefy red 2.5 cm bleeding slightly raised mass lesion now s/p excision. -General surgery consult for biopsy and excision. Appreciate Assistance. -no evidence of possible metastases if found cancerous with negative abdominal and head CT as well as chest x-ray. Dispo: Discharge home with home health. Exam Vital Signs (past 8 hours): - 01/22/19 12:00 Temperature 98.7 F Pulse Rate 64 Respiratory Rate 18 Blood Pressure 187/74 H Pulse Oximetry 94 Fraction of Inspired Oxygen 24 Oxygen Delivery Method Room Air Oxygen Flow Rate 0 Narrative Exam Narrative: GENERAL APPEARANCE: Somnolent but arousable, answers yes or no to questions. SKIN: Inspection of the skin reveals no rashes, ulcerations or petechiae. Dressings are C/D/I. HEENT: The sclerae were anicteric and conjunctivae were pink and moist. Extraocular movements were intact and pupils were equal, round with normal accommodation. External inspection of the ears and nose showed no scars, lesions, or masses. Lips, teeth, and gums showed normal mucosa. The oral mucosa, hard and soft palate, tongue and posterior pharynx were unremarkable. NECK: Supple and symmetric. There was no thyroid enlargement, and no tenderness, or masses were felt. CHEST: Normal AP diameter and normal contour without any kyphoscoliosis. LUNGS: Auscultation of the lungs revealed no wheezes, rhonchi, or rales. CARDIOVASCULAR: There was a regular rate and rhythm without any murmurs, gallops, rubs. Peripheral pulses were 2+ and symmetric. ABDOMEN: Soft and nontender with normal bowel sounds. No ascites was noted. MUSCULOSKELETAL: There was no tenderness or effusions noted. Muscle strength and tone were normal. EXTREMITIES: No cyanosis, clubbing or edema. Objective Labs Result Diagrams: 01/17/19 16:00 01/18/19 19:00 Discharge Plan Discharge Plan Patient Disposition: Home Health Service Transfer to: [facility] Discharge comment: You for admitted to the hospital with confusion, which improved. Your atenolol was held due to a slow heart rate which may have been causing your confusion. Your blood pressures have been widely variable, so your medications were titrated. She will be discharged on 40 mg of lisinopril. You should follow up with her primary care provider regarding your blood pressure in the next week. You should also follow up with the surgeons for biopsy results from your excisions that occurred while you were inpatient. Discharge Med Rec/Prescriptions Prescriptions: New aspirin 81 mg Tablet,Delayed Release (Dr/Ec) 81 mg PO DAILY 30 Days Qty: 30 RF: 0 lisinopril 40 mg tablet 40 mg PO DAILY 30 Days Qty: 30 RF: 0 Continued [HUMULIN N] 10 u SQ QDAY Qty: 0 RF: 0 coenzyme Q10 10 mg capsule 10 mg PO ONCE RF: 0 furosemide 20 mg tablet 20 mg PO DAILY RF: 0 acetaminophen 325 mg capsule 650 mg PO Q4H PRN (Reason: Analgesia) RF: 0 Discontinued atenolol 50 mg tablet 50 mg PO DAILY RF: 0 Follow up/Referrals: Earl Bacon MD [Primary Care Provider] - Provider Discharge Instructions Diet comment: pureed foods Skin/Wound/Dressing Care Skin care: nystatin to reddened areas on porsche area, keep skin clean & dry Visit Report/Discharge Packet Instructions: Aspirin, Lisinopril, [facility]: Wound Care Stand Alone Forms: Surgery Discharge Discharge Data Primary Care Provider: Earl Bacon Attending Provider: Tobias Fernández Admit Date/Time: 01/17/19 19:18
--- NOTE | 2019-01-22 19:35 | PC.NURSE ---
Discharge education, scripts and priority [place] boarding pass provided to spouse and dtr. Coversite drsg to upper back changed per Dr. Ray. A few drsgs given to spouse to take home. Spouse to call MD office to schedule f/up visits. IV removed, Tele removed. Pt trans to w/c by [employer] and dtr. Escorted out to private vehicle. Pt left in stable condition with all personal belongings.
--- NOTE | 2019-01-25 08:36 | CM.DPNOTE ---
DC Note/ Late Entry for 01.22.19 This BEAD SUPERVISOR working on DCP throughout the day on 01.22.19 w/pt's family, DPOA/spouse Earl and dtr Lary. Dtr Lary hopeful that pt would DC to [facility] because she felt pt needed the rehab before DC back home. Awaiting denial vs approval from [facility] morning and afternoon, Dr Montes felt pt was medically stable and w/ option for [facility] private pay respite vs Home w/family and [facility], pt was DC from the hospital . This BEAD SUPERVISOR spoke w/both October/ [facility] and Brady at [facility] throughout the day to discuss safe DC planning options. October explained that she had spoke w/pt's dtr and spouse multiple times to review the same information and spouse remained hesitant to agree to terms at [facility]. When this BEAD SUPERVISOR met w/pt, spouse and dtr afternoon, I explained that [facility] had still not made a determination and they would likely deny pt's SNF stay because notes indicate (and spouse confirmed) that pt was at her functional baseline and now required fpc care. spouse Earl explained he was upset w/[facility] and this BEAD SUPERVISOR supported Earl but encouraged him to consider that pt could go to [facility] under private payment and Earl said he didn't think she would gain anything if PT/OT wasn't offered. Re: PT/OT at SNF- October/[facility] alerted family that even if pt comes to [facility] under private payment, [facility] will need to auth outpt PT/OT in order for pt to receive this at [facility], family can also pay privately for this. Earl remained upset and said he would take pt home since she was DC and dtr reluctantly agreed, both agreeable to [facility] continuing service. Both said they could lift pt. Pt was a 2 person max assist and staff remained concerned as this BEAD SUPERVISOR left for the day that pt would not make it home w/family assisting d/t her heavy care (pt unable to stand on her own). The next day, Saturday, this BEAD SUPERVISOR called Brady at [facility] to confirm pt was scheduled to be seen and Brady confirmed an RN would be calling family to arrange a visit for early next week, Brady unable to give me a specific day continued to say beginning of next week, things could change. Brady said he did not need clinical faxed or resumption of care order. This BEAD SUPERVISOR placed call to home number then dtr Lary and LM updating that [facility] RN would call soon to arrange next visit. JANIE Mejias
--- NOTE | 2019-02-09 14:18 | PC.NURSE ---
late entry, IVF NS completed with 1000mL infused on 01/17/2019 at 1830
== END 2019-01-22 18:15 | disposition home health service (06) ==
LOC: ED 19:12 → AC 19:19
PROVIDERS: Family Medicine; Specialist; Admitting Provider Nurse Practitioner Adult Health; Emergency Provider Emergency Medicine; PCP Family Medicine; Visit Provider Nurse Practitioner Adult Health
PROC: (CPT 11606; principal; 2019-01-19 17:15)
DX: F05 Delirium due to known physiological condition (principal); F03.91 Unspecified dementia, unspecified severity, with behavioral disturbance; R41.82 Altered mental status, unspecified; E11.9 Type 2 diabetes mellitus without complications; I10 Essential (primary) hypertension; I48.91 Unspecified atrial fibrillation; Z79.4 Long term (current) use of insulin; I25.10 Atherosclerotic heart disease of native coronary artery without angina pectoris; Z86.73 Personal history of transient ischemic attack (TIA), and cerebral infarction without residual deficits; L91.8 Other hypertrophic disorders of the skin; L92.8 Other granulomatous disorders of the skin and subcutaneous tissue; C44.519 Basal cell carcinoma of skin of other part of trunk
CPT/HCPCS: 11606; 11200; 11042; 12032; 36591; 70450; 70496; 70498; 71045; 73560; 74177; 80048; 80053; 80305; 80320; 80329; 81001; 82140; 82550; 82962; 83605; 84145; 84146; 84443; 84484; 85025; 85610; 85730; 87040; 87070; 87075; 87077; 87086; 87186; 87205; 87507; 92526; 92610; 93005; 93010; 94760; 96361; 96365; 96366; 96372; 96375; 96376; 97110; 97162; 97166; 97530; 99283; 99285; G0378; G0480; J0360; J0690; J1644; J2704; J7050; Q9967

== ENCOUNTER 2019-01-23 22:36 | Observation (INO) | payer OTHER, SELFPAY ==
[2019-01-17 21:42] VITALS: BMI 24.7
[2019-01-23 22:45] VITALS: BP 184/89; PULSE 84; RESP 22; TEMP 36.6; O2SAT 96
--- NOTE | 2019-01-23 23:45 | DI.CT.S_ITS ---
PROCEDURE: CT HEAD/BRAIN WO CON INDICATIONS: AMS TECHNIQUE: Noncontrast 4.5 mm thick angled axial sections acquired from the foramen magnum to the vertex, with coronal and sagittal reformats. For radiation dose reduction, the following was used: automated exposure control, adjustment of mA and/or kV according to patient size. COMPARISON: [facility], CT, CT HEAD/BRAIN WO CON, 01/17/2019, 18:09. FINDINGS: Image quality: Excellent. CSF spaces: Basal cisterns are patent. No extra-axial fluid collections. The ventricles are symmetric in size and shape. Brain: No intracranial bleeds or masses. There stable moderate in cerebral volume loss for age, with resultant ventricular and sulcal prominence. There are moderate periventricular and deep white matter chronic small vessel ischemic changes, stable. There is intracranial internal carotid artery atherosclerosis. Skull and face: Calvarium and visualized facial bones appear intact, without suspicious lesions. Sinuses: Visualized sinuses and mastoids are clear. IMPRESSION: Stable CT evaluation of the head without acute intracranial abnormalities. Dictated by: Melchor Crocker M.D. on 01/24/2019 at 6:29 Approved by: Melchor Crocker M.D. on 01/24/2019 at 6:31
[2019-01-24] VITALS (11 sets, daily range): BP systolic 108–206; BP diastolic 61–116; PULSE 53–113; RESP 14–18; TEMP 35.8–36.6; O2SAT 94–100; BMI 28.6
--- NOTE | 2019-01-24 00:02 | ED_ITS ---
HPI - Weakness General Chief complaint: Weakness Stated complaint: Altered mental status Time Seen by Provider: 01/23/19 23:01 Source: patient and family (Daughter) Mode of arrival: EMS Limitations: altered mental status History of Present Illness HPI Narrative: Patient is an 83-year-old female was just discharged within the past 48 hours after being admitted to the hospital for multiple medical issues. Patient was discharged home. The patient's daughter stated that earlier today the patient seemed to have with a think was another TIA. States the patient was slurring her words. Had drooping of the left side of her face. Had problems moving the right side of her body. They were unsure the exact onset of the symptoms. She does think that the symptoms have somewhat improved since the onset earlier today however they do not think that the patient is back to baseline. Patient does live with her elderly . Daughter is concerned about the patient being able to take care of herself at home. They do have home nursing who came to the house today and was also concerned about the drooping of the left side of her face in the confusion. Related Data Home Medications Medication Instructions Recorded Confirmed [HUMULIN N] 10 u SQ QDAY #0 06/01/10 01/24/19 acetaminophen 325 mg capsule 650 mg PO Q4H PRN 12/31/18 01/24/19 coenzyme Q10 10 10 mg capsule 10 mg PO ONCE 12/31/18 01/24/19 furosemide 20 mg tablet 20 mg PO DAILY 12/31/18 01/17/19 Previous Rx's Medication Instructions Recorded aspirin 81 mg PO DAILY 30 Days #30 tab 01/22/19 lisinopril 40 mg PO DAILY 30 Days #30 tab 01/22/19 Allergies Allergy/AdvReac Type Severity Reaction Status Date / Time codeine Allergy Unknown Verified 01/17/19 16:47 Opioids - Morphine Analogues Allergy Unknown Verified 01/17/19 16:47 Review of Systems Review of Systems Narrative: Provided by patient and daughter Constitutional Constitutional: Denies fever(s), Denies frequent falls, Denies headache(s) and Reports weakness Eyes Eyes: Denies change in vision ENT Ears, Nose, Mouth, and Throat: Denies headache(s) Comments: Drooping of left-sided face Cardiovascular Cardiovascular: Denies chest pain, Denies palpitations and Denies dyspnea Respiratory Respiratory: Denies dyspnea Gastrointestinal Gastrointestinal: Denies abdominal pain, Denies nausea and Denies vomiting Musculoskeletal Musculoskeletal: Denies myalgias and Denies arthralgias Comments: Right-sided leg weakness Integumentary/Breasts Skin/Breast: Denies rash Neurologic Neurologic: Reports abnormal speech, Reports behavioral changes, Reports confusion, Denies frequent falls, Denies headache(s), Denies other visual disturbances and Reports weakness Psychiatric Psychiatric: Reports behavioral changes and Reports confusion Endocrine Endocrine: Denies palpitations Hematologic/Lymphatic Hematologic/Lymphatic: Denies easy bleeding and Denies easy bruising Allergic/Immunologic Allergic/Immunologic: Denies urticaria PFSH Medical History Diabetes (Chronic) HTN (hypertension) (Chronic) Melanoma (Acute) Polio (Acute) Stroke (Resolved) Surgical History Heart valve replaced (Acute) History of carotid endarterectomy (Resolved) Hx of eye surgery (Resolved) Hx of heart bypass surgery (Resolved) Hx of shoulder surgery (Resolved) Family History Mother Cancer Father No problems noted. Sister No problems noted. Social History marital status: household members: spouse and children occupational status: previously employed Smoking Status: Never smoker alcohol intake: never substance use type: does not use Social History marital status: household members: spouse and children occupational status: previously employed Smoking Status: Never smoker alcohol intake: never substance use type: does not use Exam Initial Vital Signs Initial Vital Signs: Vital Signs Temperature 97.9 F 01/23/19 22:45 Pulse Rate 84 01/23/19 22:45 Respiratory Rate 22 01/23/19 22:45 Blood Pressure 184/89 H 01/23/19 22:45 Pulse Oximetry 96 01/23/19 22:45 Const General: comfortable and well developed Orientation: alert, awake, oriented to person, oriented to place and oriented to time HENAZ Head: normal to inspection and normocephalic Eyes Pupils: PERRL EOM: EOM intact bilaterally Resp Effort & Inspection: normal respiratory effort Auscultation: clear to auscultation bilaterally Cardio Rate: regular rate Rhythm: regular rhythm GI Inspection: non-distended Palpation: soft Skin Lesions: no lesions Rashes: no rashes Neuro General: alert and awake Cranial Nerves: CN's II-XI intact bilaterally Speech: other (Slow to speak) Gait: other (Unable to assess gait patient unable to lift right lower extremity off the ) Motor: other (Unable to lift right lower extremity off the bed, 5/5 strength bilateral up) Sensory Exam: no sensory deficits noted Extrem General: normal to inspection and No edema Psych Appearance: well kempt Scores GCS [place] coma scale eye opening: Spontaneous [place] coma scale verbal response: Orientated [place] coma scale motor response: Obey commands Jack coma scale total score: 15 NIH Stroke Scale Level of Conciousness: Alert, keenly responsive Ask month/age: Answers both questions correctly. Open/close eyes, close hand: Performs both tasks correctly Best gaze horizontal: Normal Visual mazariegos: No visual loss Facial palsy: Minor paralysis, flattened nasolabial fold, asymmetry on smiling Left arm drift: No drift for full 10 sec Right arm drift: No drift for full 10 sec Left leg drift: No drift for full 10 sec Right leg drift: Some effort against gravity, cannot maintain, drifts down to bed Limb ataxia: Present in one limb Sensory on face/arms/legs: Normal, no sensory loss Best language: No aphasia, normal Dysarthria: Normal Extinction or inattention: No abnormality Total NIH Stroke scale score: 4 Course Orders Ordered: ED Orders 01/23/19 23:45 CT head/brain wo con Stat 01/23/19 23:47 Urinalysis and Microscopic Stat Urine Drug Screen, Rapid Stat 01/23/19 23:53 Acetaminophen Stat Ammonia (NH3) Stat Complete Blood Count AUTO DIFF Stat Comprehensive Metabolic Panel Stat Ethanol (ETOH) Stat Lactate (Lactic Acid) Stat Lipase Stat Magnesium Stat Partial Thromboplastin Time Stat Phosphorous Stat Procalcitonin Stat Prothrombin Time INR Stat Salicylate Stat Thyroid Stimulating Hormone Stat Troponin I Stat Discontinued Medications Sodium Chloride (Normal Saline 0.9%) 1,000 mls @ 1,000 mls/hr IV BOLUS ONE Stop: 01/24/19 00:34 Last Infusion: 01/24/19 02:15 Dose: 0 mls/hr Documented by: Admin: 01/24/19 01:14 Dose: 500 mls/hr Documented by: TRENTON Vital Signs Vital signs: Vital Signs - 8 hr 01/23/19 22:45 01/24/19 01:22 01/24/19 01:30 Temperature 97.9 F Pulse Rate 84 87 67 Respiratory Rate 22 18 Blood Pressure 184/89 H Blood Pressure [Left Arm] 188/78 H 206/79 H Pulse Oximetry 96 100 100 MDM - Weakness Medical Records Attestation: I reviewed the patient's medical records. Lab Data Attestation: I reviewed the patient's lab results. Result diagrams: 01/23/19 23:53 01/23/19 23:53 Labs: Lab Results 01/23/19 01/23/19 01/23/19 Range/Units 23:53 23:53 23:53 WBC 4.6 (4.5-11.0) X10^3/uL RBC 4.15 (4.0-5.2) X10^6/uL Hgb 11.7 L (12.0-16.0) g/dL Hct 36.0 (36-46) % MCV 86.7 (80-100) fL MCH 28.3 (26-34) PG MCHC 32.6 (30-36) % RDW 13.9 (11.6-14.8) % Plt Count 242 (150-400) X10^3/uL Neut % (Auto) 59.2 (50-75) % Lymph % (Auto) 25.7 (25-40) % [place] % (Auto) 9.7 (3-14) % Eos % (Auto) 4.3 H (2-4) % Baso % (Auto) 1.1 (0-2) % Neut # (Auto) 2700 (6969-1422) /uL Lymph # (Auto) 1200 (7801-6605) /uL [place] # (Auto) 400 (0-900) /uL Eos # (Auto) 200 (0-450) /uL Baso # (Auto) 100 (0-100) /uL PT 12.1 (10.1-12.7) SECONDS INR 1.0 (0.9-1.3) APTT 25 L D (26.4-36.2) SECONDS Sodium 141 (137-145) mmol/L Potassium 3.9 (3.4-5.1) mmol/L Chloride 102 (98-107) mmol/L Carbon Dioxide 31 (22-32) mmol/L BUN 13 (7-17) mg/dL Creatinine 0.70 (0.52-1.04) mg/dL Estimated GFR > 60.0 (>60) mL/min BUN/Creatinine Ratio 18.6 (6-22) Glucose 113 H (80-110) mg/dL Lactate (0.7-2.1) mmol/L Calcium 9.5 (8.4-10.2) mg/dL Phosphorus 3.6 (2.8-4.1) mg/dL Magnesium 2.0 (1.6-2.3) mg/dL Total Bilirubin 0.7 (0.2-1.3) mg/dL AST 18 (14-36) IU/L ALT < 6 L (9-52) IU/L Alkaline Phosphatase 114 (38-126) U/L Ammonia (9-30) umol/L Troponin I 0.019 (0.01-0.034) ng/mL Total Protein 7.0 (6.3-8.2) g/dL Albumin 3.6 (3.5-5.0) g/dL Globulin 3.4 (1.7-4.1) g/dL Albumin/Globulin Ratio 1.1 (1.0-2.8) Lipase 73 (23-300) U/L Procalcitonin (<0.5) ng/mL TSH (0.47-4.68) uIU/mL Salicylates < 1.0 (<20) mg/dL Acetaminophen < 10 L (10-30) ug/mL Ethyl Alcohol < 10 ( - 10) mg/dL 01/23/19 01/23/19 01/23/19 Range/Units 23:53 23:53 23:53 WBC (4.5-11.0) X10^3/uL RBC (4.0-5.2) X10^6/uL Hgb (12.0-16.0) g/dL Hct (36-46) % MCV (80-100) fL MCH (26-34) PG MCHC (30-36) % RDW (11.6-14.8) % Plt Count (150-400) X10^3/uL Neut % (Auto) (50-75) % Lymph % (Auto) (25-40) % [place] % (Auto) (3-14) % Eos % (Auto) (2-4) % Baso % (Auto) (0-2) % Neut # (Auto) (8770-4684) /uL Lymph # (Auto) (8119-6616) /uL [place] # (Auto) (0-900) /uL Eos # (Auto) (0-450) /uL Baso # (Auto) (0-100) /uL PT (10.1-12.7) SECONDS INR (0.9-1.3) APTT (26.4-36.2) SECONDS Sodium (137-145) mmol/L Potassium (3.4-5.1) mmol/L Chloride (98-107) mmol/L Carbon Dioxide (22-32) mmol/L BUN (7-17) mg/dL Creatinine (0.52-1.04) mg/dL Estimated GFR (>60) mL/min BUN/Creatinine Ratio (6-22) Glucose (80-110) mg/dL Lactate 1.2 (0.7-2.1) mmol/L Calcium (8.4-10.2) mg/dL Phosphorus (2.8-4.1) mg/dL Magnesium (1.6-2.3) mg/dL Total Bilirubin (0.2-1.3) mg/dL AST (14-36) IU/L ALT (9-52) IU/L Alkaline Phosphatase (38-126) U/L Ammonia < 9.0 L (9-30) umol/L Troponin I (0.01-0.034) ng/mL Total Protein (6.3-8.2) g/dL Albumin (3.5-5.0) g/dL Globulin (1.7-4.1) g/dL Albumin/Globulin Ratio (1.0-2.8) Lipase (23-300) U/L Procalcitonin < 0.05 (<0.5) ng/mL TSH (0.47-4.68) uIU/mL Salicylates (<20) mg/dL Acetaminophen (10-30) ug/mL Ethyl Alcohol ( - 10) mg/dL 01/23/19 Range/Units 23:53 WBC (4.5-11.0) X10^3/uL RBC (4.0-5.2) X10^6/uL Hgb (12.0-16.0) g/dL Hct (36-46) % MCV (80-100) fL MCH (26-34) PG MCHC (30-36) % RDW (11.6-14.8) % Plt Count (150-400) X10^3/uL Neut % (Auto) (50-75) % Lymph % (Auto) (25-40) % [place] % (Auto) (3-14) % Eos % (Auto) (2-4) % Baso % (Auto) (0-2) % Neut # (Auto) (5861-3088) /uL Lymph # (Auto) (9228-4431) /uL [place] # (Auto) (0-900) /uL Eos # (Auto) (0-450) /uL Baso # (Auto) (0-100) /uL PT (10.1-12.7) SECONDS INR (0.9-1.3) APTT (26.4-36.2) SECONDS Sodium (137-145) mmol/L Potassium (3.4-5.1) mmol/L Chloride (98-107) mmol/L Carbon Dioxide (22-32) mmol/L BUN (7-17) mg/dL Creatinine (0.52-1.04) mg/dL Estimated GFR (>60) mL/min BUN/Creatinine Ratio (6-22) Glucose (80-110) mg/dL Lactate (0.7-2.1) mmol/L Calcium (8.4-10.2) mg/dL Phosphorus (2.8-4.1) mg/dL Magnesium (1.6-2.3) mg/dL Total Bilirubin (0.2-1.3) mg/dL AST (14-36) IU/L ALT (9-52) IU/L Alkaline Phosphatase (38-126) U/L Ammonia (9-30) umol/L Troponin I (0.01-0.034) ng/mL Total Protein (6.3-8.2) g/dL Albumin (3.5-5.0) g/dL Globulin (1.7-4.1) g/dL Albumin/Globulin Ratio (1.0-2.8) Lipase (23-300) U/L Procalcitonin (<0.5) ng/mL TSH 1.88 D (0.47-4.68) uIU/mL Salicylates (<20) mg/dL Acetaminophen (10-30) ug/mL Ethyl Alcohol ( - 10) mg/dL Urine Dip Bedside Urine Glucose Negative Bedside Urine Bilirubin - Negative Bedside Urine Ketone - Negative Urine Specific [place] 1.0 Bedside Urine Occult Blood - Negative Bedside Urine pH 5.5 Bedside Urine Protein - Negative Bedside Urine Urobilinogen - Negative Bedside Urine Nitrite - Negative Bedside Urine Leukocytes - Negative Esterase Imaging Data CT scan - head: Radiologist's impression: Preliminary read Mild prominence of the ventricles. Consider communicating hydrocephalus. MDM Narrative Medical decision making narrative: Patient's cranial nerves are unremarkable. She was alert and oriented x3 however was very slow to answer questions. nih score 4. Patient is not a candidate for tPA because we do not know the exact onset of her symptoms and the daughter states that the symptoms seem to be improving since this morning. It has been greater than 4 hours since the onset. Patient does not have any drooping of the left side of her face now. She cannot lift her right leg up off the bed and cannot hold it off the bed. She is unable to stand and walk. I do suspect that she had another TIA this morning. Given her age in her symptoms I do feel that she requires admission to the hospital. Discussed the case with the night hospitalist who accepted further evaluation and treatment. Discussed the admission with the patient and her daughter. They expressed understanding and agreement. Discharge Plan Departure Patient Disposition: Admitted As Inpatient Clinical Impression: TIA (transient ischemic attack) Altered mental status Qualifiers: Altered mental status type: unspecified Qualified Code(s): R41.82 - Altered mental status, unspecified Discharge Date/Time: 01/24/19 02:15 Admit Date/Time: 01/24/19 01:38 Admit Provider: Tho Villeda
[2019-01-24 00:11] LABS: Add Manual Diff / Slide Review NO; Basophils Absolute Auto 100 /uL (0-100); Basophils Percent Auto 1.1 % (0-2); Eosinophils Absolute Auto 200 /uL (0-450); Eosinophils Percent Auto 4.3 % (2-4); Hemoglobin 11.7 g/dL (12.0-16.0); Lymphocytes Absolute Auto 1200 /uL (1100-4500); Lymphocytes Percent Auto 25.7 % (25-40); Mean Corpuscular HGB Conc 32.6 % (30-36); Mean Corpuscular Hemoglobin 28.3 PG (26-34); Mean Corpuscular Volume 86.7 fL (80-100); Monocytes Absolute Auto 400 /uL (0-900); Monocytes Percent Auto 9.7 % (3-14); Neutrophils Absolute Auto 2700 /uL (1500-7000); Neutrophils Percent Auto 59.2 % (50-75); Platelet Count 242 X10^3/uL (150-400); Red Blood Cell Count 4.15 X10^6/uL (4.0-5.2); Red Cell Distribution Width 13.9 % (11.6-14.8); White Blood Cell Count 4.6 X10^3/uL (4.5-11.0)
[2019-01-24 00:14] LABS: Prothrombin Time 12.1 SECONDS (10.1-12.7)
[2019-01-24 00:16] LABS: Ammonia (NH3) < 9.0 umol/L (9-30)
[2019-01-24 00:17] LABS: Lactate (Lactic Acid) 1.2 mmol/L (0.7-2.1); PTT Partial Thromboplastin Tim 25 SECONDS (26.4-36.2)
[2019-01-24 00:23] LABS: Acetaminophen < 10 ug/mL (10-30); Albumin 3.6 g/dL (3.5-5.0); Albumin Globulin Ratio 1.1 (1.0-2.8); Alkaline Phosphatase 114 U/L (38-126); Aspartate Aminotransferase 18 IU/L (14-36); BUN Creatinine Ratio 18.6 (6-22); Bilirubin Total 0.7 mg/dL (0.2-1.3); Blood Urea Nitrogen 13 mg/dL (7-17); Calcium 9.5 mg/dL (8.4-10.2); Carbon Dioxide 31 mmol/L (22-32); Chloride 102 mmol/L (98-107); Estimated Glomerular Filt Rate > 60.0 mL/min (>60); Ethanol (ETOH) < 10 mg/dL; Globulin 3.4 g/dL (1.7-4.1); Glucose 113 mg/dL (80-110); HEMOLYSIS < 15 (0-50); Lipase 73 U/L (23-300); Phosphorous 3.6 mg/dL (2.8-4.1); Potassium 3.9 mmol/L (3.4-5.1); Salicylate < 1.0 mg/dL (<20); Sodium 141 mmol/L (137-145)
[2019-01-24 00:24] LABS: Alanine Aminotransferase < 6 IU/L (9-52)
[2019-01-24 00:34] LABS: Troponin I 0.019 ng/mL (0.01-0.034)
[2019-01-24 00:38] LABS: Procalcitonin < 0.05 ng/mL (<0.5)
[2019-01-24 01:09] LABS: Thyroid Stimulating Hormone 1.88 uIU/mL (0.47-4.68)
[2019-01-24] MEDS: SODIUM CHLORIDE 0.9% 1,000 ML 500 ML IV (01:14)
[2019-01-24 03:41] LABS: Bacteria Urine None Seen; RBC Urine None Seen (0-5/HPF); WBC Urine None Seen (0-5/HPF)
[2019-01-24 03:59] LABS: Appearance Urine UA CLEAR; Bilirubin Urine UA NEGATIVE (NEGATIVE); Color Urine UA YELLOW; Glucose Urine UA NEGATIVE (Negative); Ketones Urine UA NEGATIVE (NEGATIVE); Leukocyte Esterase Urine UA NEGATIVE (NEGATIVE); Nitrite Urine UA NEGATIVE (Negative); Occult Blood Urine UA 3+ (Negative); Protein Urine UA NEGATIVE (Negative); Specific Gravity Urine UA <=1.005 (1.000-1.035); Urobilinogen Urine UA 0.2 E.U./dL (0.2)
[2019-01-24 04:04] LABS: Urine Amphetamines Negative (Negative); Urine Barbiturates Negative (Negative); Urine Benzodiazepines Negative (Negative); Urine Cocaine Negative (Negative); Urine MDMA Negative (Negative); Urine Methadone Negative (Negative); Urine Methamphetamines Negative (Negative); Urine Morphine/Opi cutoff 2000 Negative (Negative); Urine Oxycodone Negative (Negative); Urine Phencyclidine Negative (Negative); Urine Tetrahydrocannabinol Negative (Negative); Urine Tricyclic Antidepressant Negative (Negative)
[2019-01-24 04:13] LABS: Amorphous Sediment Urine 1+; Culture Indicated Urine Cult Not Indicated
--- NOTE | 2019-01-24 07:04 | PC.NURSE ---
Patient able to rest well between turns and after the admit process.
--- NOTE | 2019-01-24 10:36 | PC.NURSE ---
Pt arousable. Pt easily follows commands. does say her name. Speaks a few words. Moves extremities equally with some strength. slight facial droop on the left noted. Pt restfull at present. Daughter attentive at bedside speaking on phone with Pt's .
[2019-01-24] MEDS: ASPIRIN EC 81 MG TABLET PO (13:03)
[2019-01-24] MEDS: LISINOPRIL 20 MG TABLET 40 MG PO (13:03)
--- NOTE | 2019-01-24 13:34 | DI.CT.S_ITS ---
PROCEDURE: CT ANGIO HEAD AND NECK INDICATIONS: facial droop, slurred speech TECHNIQUE: Pre-contrast 4.5 mm thick sections acquired from the foramen magnum to the vertex. After the administration of intravenous contrast, 1 mm thick sections acquired from the aortic arch through the [place] of [place]. Post-contrast 4.5 mm thick sections then re-acquired from the foramen magnum to the vertex. 3-dimensional [id number] (MIP) and/or volume rendering reformats were acquired of the central intracranial vasculature and neck separately. COMPARISON: [facility], CT, CT ANGIO HEAD AND NECK, 01/18/2019, 20:19. FINDINGS: Image quality: Excellent. BRAIN: CSF spaces: Ventricles are normal in size and shape. Basal cisterns are patent. No extra-axial fluid collections. Brain: No midline shift. No intracranial bleeds or masses. [place]-white matter interface appears intact. Marked hypodensity throughout the periventricular white matter to a stable degree compared to the prior study. No new cortical edema. Skull and face: Calvarium and facial bones appear intact, without suspicious lesions. Orbits appear normal. Sinuses: Sinuses and mastoids are clear. HEAD CT ANGIOGRAPHY: Anterior circulation: Intracranial internal carotid arteries are normal in size and flow. There is moderate to heavy atherosclerotic calcification. Hypoplastic left A1 segment. The flow within the paired anterior cerebral arteries is otherwise normal and symmetric. The anterior communicating artery is seen. The left distal M1 segment demonstrates mild, chronic irregular narrowing with at least tandem stenoses of approximately 50%. (). This is stable compared to the prior study. No aneurysms are seen. Posterior circulation: Visualized portions of the vertebral arteries demonstrate normal caliber, and join to form a normal appearing basilar artery. Flow within the posterior cerebral arteries is normal and symmetric. No aneurysms are seen. NECK CT ANGIOGRAPHY: Carotid system: The great vessels demonstrate a conventional anatomy as they arise from the aortic arch. The origins of the common carotid arteries appear patent. The common carotid arteries demonstrate normal caliber and courses. There surgical clips at the left carotid bulb which cause beam hardening artifact. There is estimated to be a 50% to 69% stenosis secondary noncalcified atherosclerosis of the proximal left ICA. There is moderate calcification of the right ICA origin resulting in a stenosis estimated to be 50% or less. The distal internal carotid arteries reconstitute to normal calibers and courses. Posterior circulation: The origins of the vertebral arteries both appear widely patent. The more superior extracranial portions of both vertebral arteries also demonstrate normal courses and stable calibers, right slightly larger left. They join to form a normal appearing basilar artery. Soft tissues: Visualized neck soft tissues demonstrate left lower pole thyroid nodule. There are moderate-sized bilateral pleural effusions partially imaged. Bones: No suspicious bony lesions. Visualized cervical spine demonstrates exaggerated lordosis but with normal alignment. IMPRESSION: 1. No evidence of new acute intracranial edema. 2. Chronic moderate irregularity of the left M1 segment of the middle cerebral artery without occlusion. 3. Stable bilateral proximal ICA stenoses, estimated to be between 50-69% left and 50% on the right. This could be further evaluated with carotid duplex ultrasound. 4. Left lower pole thyroid nodule. Further evaluation with ultrasound is recommended. 5. Moderate-sized bilateral pleural effusions. Any quantitative measurements of stenosis were performed using NASCET criteria. Dictated by: Tiny Tadeo M.D. on 01/24/2019 at 21:30 Approved by: Tiny Tadeo M.D. on 01/24/2019 at 21:59
--- NOTE | 2019-01-24 15:10 | P.HP_ITS ---
History of Present Illness History of Present Illness Date Patient Seen: 01/24/19 Chief complaint: Altered mental status Narrative: Mary Casiano is an 83-year-old female with a past medical history significant for hypertension, chronic atrial fibrillation, history of polio, prior CVA and malignant melanoma who was recently hospitalized within the last 48 hours for altered mental status and came back to the ED with slurred speech and left-sided facial droop and concern for stroke. The patient has advanced dementia at baseline and her daughter and act as primary historians. The patient's daughter reports that yesterday afternoon she noticed that her mother was slurring her words and had left sided facial droop. Of note, the patient's does report that he notices if the patient becomes fatigued she has more trouble with her speech and has left-sided facial droop. They have also noticed sundowning behaviors in the evening related to her advanced dementia. She has profound generalized weakness and is unable to walk and has been wheelchair and bed-bound. The patient's weakness continues to be progressive and the family feels that right side is slightly weaker and something has changed. The patient's symptoms have improved/resolved since onset. The patient has no focal neurological deficits. The patient lives with her elderly at home. There is concern that the patient is not well taken care of at home but her and DPOA is resistant to senior living facility for rehabilitation versus long-term care. The patient is lying in bed and in no acute distress. She denies headache, chest pain, shortness of breath, abdominal pain, nausea, vomiting, fever, chills, dysuria, diarrhea constipation. She had a Celestin catheter inserted for decreased mobility. The patient is significantly withdrawn and communicates very little likely due to her advanced dementia. The patient is admitted for observation and to rule out CVA. Patient History Medical History Diabetes (Chronic) HTN (hypertension) (Chronic) Melanoma (Acute) Polio (Acute) Stroke (Resolved) Surgical History Heart valve replaced (Acute) History of carotid endarterectomy (Resolved) Hx of eye surgery (Resolved) Hx of heart bypass surgery (Resolved) Hx of shoulder surgery (Resolved) Family History Mother Cancer Father No problems noted. Sister No problems noted. Social History marital status: household members: spouse and children occupational status: previously employed Smoking Status: Never smoker alcohol intake: never substance use type: does not use Family & Social History Family History Mother Cancer Father No problems noted. Sister No problems noted. Social History: household members spouse,children Prior Living Arrangements House Safety & Behavioral: Feels Safe in Current Yes Environment Been Physically Hurt or No Threatened By a Person Suicidal Ideation Description None Suicide Plan Description No Plan Tobacco & Substance use: Smoking Status Never smoker alcohol intake never alcohol intake frequency 0-2 drinks per day Substance Use Type does not use Meds Home Medications and Allergies Home Medications Medication Instructions Recorded Confirmed Type [HUMULIN N] 10 u SQ QDAY #0 06/01/10 01/24/19 History acetaminophen 325 mg capsule 650 mg PO Q4H PRN 12/31/18 01/24/19 History coenzyme Q10 10 10 mg capsule 10 mg PO ONCE 12/31/18 01/24/19 History furosemide 20 mg tablet 20 mg PO DAILY 12/31/18 01/17/19 History aspirin 81 mg PO DAILY 30 Days #30 tab 01/22/19 01/24/19 Rx lisinopril 40 mg PO DAILY 30 Days #30 tab 01/22/19 01/24/19 Rx Allergies Allergy/AdvReac Type Severity Reaction Status Date / Time codeine Allergy Unknown Verified 01/17/19 16:47 Opioids - Morphine Analogues Allergy Unknown Verified 01/17/19 16:47 Review of Systems Review of Systems Narrative: A 10 system comprehensive review of systems was conducted with the patient and found to be negative except as above in the History of Present Illness. Exam Vital Signs (past 8 hours): - 01/24/19 11:02 01/24/19 13:03 01/24/19 15:10 Temperature 97.1 F L 97.8 F Pulse Rate 79 79 82 Respiratory Rate 15 17 Blood Pressure 151/90 H 151/90 H 188/89 H Pulse Oximetry 100 100 Oxygen Delivery Method Room Air Oxygen Flow Rate 0 Narrative Exam Narrative: General: Elderly female lying in bed and in no acute distress, well-developed, well-nourished, significantly withdrawn and communicates very little likely due to advanced dementia, seems to answer questions appropriately. HEENT: Normocephalic, atraumatic. External ears without defect. Pupils equal, round, and reactive to light and accommodation. Anicteric sclerae, moist conjunctivae, and no lid lag. Oropharynx free of erythema and cobble stoning with moist mucosa. No facial droop. Neck: Supple with full range of motion. No jugular venous distension. No bruits. No lymphadenopathy or thyromegaly. Cardiovascular: Irregularly irregular without murmurs, rubs, or gallops appreciated. Pulmonary: Clear to auscultation bilaterally without crackles, wheezes, or rhonchi. Normal respiratory effort with no use of accessory muscles. Abdomen: Soft, bowel sounds present, nontender, nondistended. No hepatosplenomegaly or masses appreciated. Extremities: No clubbing, cyanosis, or edema. Skin: Normal temperature, turgor, and texture; no rash, ulcers, or subcutaneous nodules appreciated. Neurological: Cranial nerves grossly intact. Generalized weakness bilaterally in upper and lower extremities with right slightly worse than left and MS + 2/5. Speech does not appear slurred. No facial droop. No focal neurological deficits. Psychiatric: Significantly withdrawn, only speaks when asked questions, patient with advanced dementia at baseline. Objective Labs Result Diagrams: 01/23/19 23:53 01/23/19 23:53 Labs: Laboratory Results - last 24 hr 01/23/19 01/23/19 01/23/19 23:53 23:53 23:53 WBC 4.6 RBC 4.15 Hgb 11.7 L Hct 36.0 MCV 86.7 MCH 28.3 MCHC 32.6 RDW 13.9 Plt Count 242 Neut % (Auto) 59.2 Lymph % (Auto) 25.7 [place] % (Auto) 9.7 Eos % (Auto) 4.3 H Baso % (Auto) 1.1 Neut # (Auto) 2700 Lymph # (Auto) 1200 [place] # (Auto) 400 Eos # (Auto) 200 Baso # (Auto) 100 PT 12.1 INR 1.0 APTT 25 L D Sodium 141 Potassium 3.9 Chloride 102 Carbon Dioxide 31 BUN 13 Creatinine 0.70 Estimated GFR > 60.0 BUN/Creatinine Ratio 18.6 Glucose 113 H Lactate Calcium 9.5 Phosphorus 3.6 Magnesium 2.0 Total Bilirubin 0.7 AST 18 ALT < 6 L Alkaline Phosphatase 114 Ammonia Troponin I 0.019 Total Protein 7.0 Albumin 3.6 Globulin 3.4 Albumin/Globulin Ratio 1.1 Lipase 73 Procalcitonin TSH Urine Color Urine Appearance Urine pH Ur Specific [place] Urine Protein Urine Glucose (UA) Urine Ketones Urine Occult Blood Urine Nitrate Urine Bilirubin Urine Urobilinogen Ur Leukocyte Esterase Urine RBC Urine WBC Amorphous Sediment Urine Bacteria Ur Culture Indicated? Salicylates < 1.0 Urine Opiates Screen Ur Oxycodone Screen Urine Methadone Screen Acetaminophen < 10 L Ur Barbiturates Screen U Tricyclic Antidepress Ur Phencyclidine Scrn Ur Amphetamines Screen U Methamphetamines Scrn Ur MDMA Scrn (Ecstasy) U Benzodiazepines Scrn Urine Cocaine Screen U Marijuana (THC) Screen Ethyl Alcohol < 10 01/23/19 01/23/19 01/23/19 23:53 23:53 23:53 WBC RBC Hgb Hct MCV MCH MCHC RDW Plt Count Neut % (Auto) Lymph % (Auto) [place] % (Auto) Eos % (Auto) Baso % (Auto) Neut # (Auto) Lymph # (Auto) [place] # (Auto) Eos # (Auto) Baso # (Auto) PT INR APTT Sodium Potassium Chloride Carbon Dioxide BUN Creatinine Estimated GFR BUN/Creatinine Ratio Glucose Lactate 1.2 Calcium Phosphorus Magnesium Total Bilirubin AST ALT Alkaline Phosphatase Ammonia < 9.0 L Troponin I Total Protein Albumin Globulin Albumin/Globulin Ratio Lipase Procalcitonin < 0.05 TSH Urine Color Urine Appearance Urine pH Ur Specific [place] Urine Protein Urine Glucose (UA) Urine Ketones Urine Occult Blood Urine Nitrate Urine Bilirubin Urine Urobilinogen Ur Leukocyte Esterase Urine RBC Urine WBC Amorphous Sediment Urine Bacteria Ur Culture Indicated? Salicylates Urine Opiates Screen Ur Oxycodone Screen Urine Methadone Screen Acetaminophen Ur Barbiturates Screen U Tricyclic Antidepress Ur Phencyclidine Scrn Ur Amphetamines Screen U Methamphetamines Scrn Ur MDMA Scrn (Ecstasy) U Benzodiazepines Scrn Urine Cocaine Screen U Marijuana (THC) Screen Ethyl Alcohol 01/23/19 01/24/19 01/24/19 23:53 03:40 03:40 WBC RBC Hgb Hct MCV MCH MCHC RDW Plt Count Neut % (Auto) Lymph % (Auto) [place] % (Auto) Eos % (Auto) Baso % (Auto) Neut # (Auto) Lymph # (Auto) [place] # (Auto) Eos # (Auto) Baso # (Auto) PT INR APTT Sodium Potassium Chloride Carbon Dioxide BUN Creatinine Estimated GFR BUN/Creatinine Ratio Glucose Lactate Calcium Phosphorus Magnesium Total Bilirubin AST ALT Alkaline Phosphatase Ammonia Troponin I Total Protein Albumin Globulin Albumin/Globulin Ratio Lipase Procalcitonin TSH 1.88 D Urine Color Yellow Urine Appearance Clear Urine pH 5.0 Ur Specific [place] <=1.005 Urine Protein Negative Urine Glucose (UA) Negative Urine Ketones Negative Urine Occult Blood 3+ H Urine Nitrate Negative Urine Bilirubin Negative Urine Urobilinogen 0.2 Ur Leukocyte Esterase Negative Urine RBC None seen Urine WBC None seen Amorphous Sediment 1+ Urine Bacteria None seen Ur Culture Indicated? Cult not indicated Salicylates Urine Opiates Screen Negative Ur Oxycodone Screen Negative Urine Methadone Screen Negative Acetaminophen Ur Barbiturates Screen Negative U Tricyclic Antidepress Negative Ur Phencyclidine Scrn Negative Ur Amphetamines Screen Negative U Methamphetamines Scrn Negative Ur MDMA Scrn (Ecstasy) Negative U Benzodiazepines Scrn Negative Urine Cocaine Screen Negative U Marijuana (THC) Screen Negative Ethyl Alcohol Assessment & Plan Assessment & Plan narrative: Mary Casiano is an 83-year-old female with a past medical history significant for hypertension, chronic atrial fibrillation, history of polio, prior CVA and malignant melanoma who was recently hospitalized within the last 48 hours for altered mental status and came back to the ED with slurred speech and left-sided facial droop and concern for stroke. 1. Left-sided facial droop and slurred speech, acute versus chronic, present on admission. Resolved. -Patient developed left-sided facial droop and slurred speech yesterday evening. Patient has been reports that as patient fatigues he has noticed this in the past. Patient also had slightly worse right-sided weakness compared to left. Patient admitted for CVA rule out. -CT brain without contrast did not demonstrate any acute intracranial abnormalities. Of note, the patient has chronic left cerebellar hemisphere lacunar infarct and moderate cerebral volume loss with resultant ventricular and sulcal prominence and moderate periventricular and deep white matter chronic small vessel ischemic changes consistent with her advanced dementia. -Unclear if patient can undergo MRI due to multiple surgical clips in neck for ICA. -Ordered CTA head and neck, pending. -Continue frequent neuro checks every 4 hours. NIH score 4. -Continue to monitor closely on telemetry. -Continue aspirin 81 mg daily. -Risk stratify with fasting lipid panel and hemoglobin A1c tomorrow morning. -Allow for permissive hypertension for 24 hours. Ordered labetalol 10 mg every 6 hours as needed for SBP > 180 mmHg sustained for 15 minutes. -Continue physical and occupational therapy evaluation treatment. 2. Chronic deconditioning with profound generalized weakness, present on admission. Active. -Patient's daughther has concern that the patient is not receiving adequate care at home. Patient's is DPOA and has adverse in to senior living facility for rehabilitation and prefers to take the patient home. Had family care conference and the patient's would like some time to discuss a trial of rehabilitation versus home with hospice with his prior to committi ng to a decision. -Continue physical and occupational therapy evaluation treatment. 3. Advanced dementia, likely vascular, chronic, present on admission. Stable. -Patient has reported sundowning behaviors with increased confusion in the evenings. -Previous SLUMS score +6/30 performed by occupational therapy. -CT brain moderate in cerebral volume loss with resultant ventricular and sulcal prominence and moderate periventricular and deep white matter chronic small vessel ischemic changes consistent with her advanced dementia. -Continue to reorient often. Patient is pleasant without behavioral disturbance. 4. Hypertension, chronic, present on admission. Stable. -Allow for permissive hypertension for 24 hours. Ordered labetalol 10 mg every 6 hours as needed for SBP > 180 mmHg sustained for 15 minutes. -Continue lisinopril 40 mg daily. If requiring additional blood pressure control will consider amlodipine versus low-dose metoprolol tartrate as this would provide rate control. 5. Chronic atrial fibrillation, present on admission. Stable. -Currently rate controlled and not on rate control medication. Will consider low-dose metoprolol tartrate if needed for rate control. 6. 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 Stable. -Continue aspirin 81 mg daily. Patient is admitted under observation status with expected length of stay less than 2 midnights due to severity of presenting symptoms, risk of adverse event, and complexity of treatment plan. Quality VTE Deep Vein Thrombosis/Pulmonary Embolism Present on Admission: Yes
--- NOTE | 2019-01-24 16:02 | PT.IIE ---
Surgical History (Last Reviewed 01/24/19 @ 04:30 by Antoni Gutierrez DO) Heart valve replaced (Acute) History of carotid endarterectomy (Resolved) Hx of eye surgery (Resolved) Hx of heart bypass surgery (Resolved) Hx of shoulder surgery (Resolved) Medical History (Last Reviewed 01/24/19 @ 04:30 by Antoni Gutierrez DO) Diabetes (Chronic) HTN (hypertension) (Chronic) Melanoma (Acute) Polio (Acute) Stroke (Resolved) Physical Therapy Inpatient Evaluation/Re-Eval M1 PT/OT-IP Prior Functional Status Start: 01/24/19 16:04 Freq: NEEDED Status: Active Protocol: Document 01/24/19 16:02 DLM (Rec: 01/24/19 17:04 DL [id number]) Medical Review Prior Functional Status Medical History Reviewed Yes Communication limited speech but able to verbalize simple needs Mobility and Gait 7-8 months ago she was standing and walking with family assist, before 01/18/19 admission she was transfering with family assist to a wheelchair and bedside commode , at last discharge on 01/22/19 she went home with selene transfers with therapy working on standing and sitting edge of bed Activities of Daily Living and IADL's Pt able to feed self, wash face and hands and do some hair care with assist. Pt total assist with denture care, dressing, bathing and toileting (incontinent of bowel and bladder in adult diaper) per family. They have BSC but were not using it. Prior Functional Level (Other details) her reports he just got the sling for the selene lift at home Social History Household Members spouse,children Living Arrangements House Number of Floors (Floors) Two Floors Number of Stairs To Enter/Railing? no steps Home Equipment Manual Wheelchair,Slide Board, Bedside Commode,Mechanical Lift,Hospital Bed Additional Social History Comment Her Spouse is unable to lift due to a heart condition. M2 PT-IP Current Condition Start: 01/24/19 16:04 Freq: NEEDED Status: Active Protocol: Document 01/24/19 16:02 DLM (Rec: 01/24/19 17:04 DL [id number]) Physical Therapy Current Condition Current Condition Evaluation Date 01/24/19 Treatment Diagnosis weakness, impaired mobility Onset Date 01/24/19 M3 PT-IP Subjective Start: 01/24/19 16:04 Freq: NEEDED Status: Active Protocol: Document 01/24/19 16:02 DLM (Rec: 01/24/19 17:04 DL [id number]) Subjective Physical Therapy Visit Type Type Initial Evaluation Visit Start Time 15:30 Visit Stop Time 16:02 Total Visit Minutes 32 Number of SWEEPER DRIVER Visits 0 Physical Therapy Visit Comments Patient Comments Her family reports pt is weaker today, they feel something has changed. Her reports that the patient has been challenging to care for at home due to high level of assistance needed. He feels it is too much for him and his Daughter. Patient Goals Her reports his goal is for her to be able to stand short periods of time to help with ADL's. He wants her to get stronger. Therapy Pain Assessment Pain When Pain Assessed During Mobility Pain Present Pain Present Denied Pain M4 PT-IP Mobility and Gait Start: 01/24/19 16:04 Freq: NEEDED Status: Active Protocol: Document 01/24/19 16:02 DL (Rec: 01/24/19 17:04 [facility] [id number]) PT-Bed Mobility Assessment Rolling Type of Rolling Roll to Left Level of Assist Moderate Assistance,Maximal Assistance Supine to Sit Supine to Sit Moderate Assistance,Maximum Assistance Sit to Supine Sit to Supine Maximum Assistance Scooting Scooting to Edge of Bed Maximum Assistance PT-Transfer Assessment Comments Mobility Comments Pt declined to attempt standing stating she is afraid to fall. Pt sitting edge of bed with min/mod assist due to right sided lean. Pt needs assist to correct her right sided lean even after verbal cues to correct position. Gait Assessment Comments Gait Comments Pt has not ambulated in 7-8 months, has been in wheelchair PT-Balance Assessment Sitting Balance and Reactions Static Sitting Balance Ability Fair Dynamic Sitting Balance Ability Fair M5 PT-IP Objective Assessments Start: 01/24/19 16:04 Freq: NEEDED Status: Active Protocol: Document 01/24/19 16:02 DLM (Rec: 01/24/19 17:04 [facility] [id number]) Orientation Orientation/Cognition Level of Alertness Alert Orientation Name Safety Awareness Understands Safety Issues Comments limited verbalizations, pt able to answer specific questions when asked, pt often nods head or grunts in response to simple questions, family reports intermittent garbled speech Gross Range of Motion Upper Extremity ROM Assessment Bilaterally Impaired Impairments right shoulder flexion 80 degrees and left 90 degrees Lower Extremity ROM Assessment Within Functional Limits Strength Upper Extremity Strength Assessment Bilaterally Impaired Shoulder 3+/5 Elbow 3+/5 Wrist 3+/5 Hand 3+/5 Lower Extremity Strength Assessment Bilaterally Impaired Hip flexion 2+/5 Knee knee ext 3+/5 Ankle DF 3+/5 Comments Strength Comments no focal strength deficits noted, mild drooling noted with pt aware and wiping at her mouth Coordination Assessment Gross Coordination Gross Coordination WNL Sensation Assessment Sensation Gross Sensation WNL Muscle Tone Muscle Tone WNL Yes M7 PT-IP Assessment and Plan Start: 01/24/19 16:04 Freq: NEEDED Status: Active Protocol: Document 01/24/19 16:02 DLM (Rec: 01/24/19 17:04 DLM [id number]) PT Summary Assessment and Plan Potential Rehabilitation Potential Fair Status of Condition at Evaluation Evolving Summary Impairments ROM,Strength,Balance,Bed Mobility,Transfers,Gait, Activity Tolerance Assessment Summary Mary was discharged home on 01/22/19 and came back to the hospital late on 01/23/19. Her family reports she is too much care for them to manage at home. Her family reports new weakness that returned her to the hospital. No focal weakness found during this clinical exam but pt is generaly very weak. Noted increased right sided lean in sitting that is worse than seen on 01/22/19 therapy session. Pt is a good candidate for SNF rehab at discharge to help with increasing her strength and ability to participate in mobility. Even a small improvement in her ability to stand and transfer would assist with care at home. Goals Bed Mobility Goal Moderate Assistance Transfer Goal Moderate Assistance,Maximal Assistance Other Goals Sit edge of bed with SBA x 10 min. Tolerated sitting up in a chair for 2 hours. Frequency of Treatment Frequency Of Treatment Twice a Day Treatment Plan Physical Therapy Treatment Plan Bed Mobility Training,Transfer Training,Therapeutic Exercise ,Balance Retraining, Neuromuscular Re-ed Other Recommendations and Next Treatment progress to gait if able to Focus improve standing Recommendations To Nursing Amount of Assist Needed Mechanical Lift Discharge Recommendations PT Discharge Recommendations SNF Rehab
--- NOTE | 2019-01-24 17:00 | OT.IP.EVAL ---
Past Medical History (Last Reviewed 01/24/19 @ 04:30 by Antoni Gutierrez DO) Diabetes (Chronic) HTN (hypertension) (Chronic) Melanoma (Acute) Polio (Acute) Stroke (Resolved) Surgical History (Last Reviewed 01/24/19 @ 04:30 by Antoni Gutierrez DO) Heart valve replaced (Acute) History of carotid endarterectomy (Resolved) Hx of eye surgery (Resolved) Hx of heart bypass surgery (Resolved) Hx of shoulder surgery (Resolved) Occupational Therapy Inpatient Evaluation/Re-Eval M2 OT-IP Current Condition Start: 01/24/19 16:03 Freq: Status: Active Protocol: Document 01/24/19 16:03 CGR (Rec: 01/24/19 17:00 CGR [id number]) Occupational Therapy Current Condition Current Condition Evaluation Date 01/24/19 Treatment Diagnosis Possible TIA Diagnosis Onset Date 01/24/19 M3 OT- IP Subjective and Pain Start: 01/24/19 16:03 Freq: Status: Active Protocol: Document 01/24/19 16:03 CGR (Rec: 01/24/19 17:00 CGR [id number]) OT- Subjective Occupational Therapy Visit Type Type Initial Evaluation Visit Start Time 15:38 Visit Stop Time 16:02 Total Visit Minutes 24 Occupational Therapy Visit Comments Patient/Caregiver Goals Family wants pt to get back to being able to assist with transfers. OT Pain Assessment Pain When Pain Assessed At Rest Pain Present Pain Present Denied Pain M4 OT- IP ADL's Start: 01/24/19 16:03 Freq: Status: Active Protocol: Document 01/24/19 16:03 CGR (Rec: 01/24/19 17:00 CGR [id number]) OT LHL-Elmi-Rgudaig Comments OT Self-Feeding Comments Not meal time. OT ADL-Grooming Comments OT Grooming Comments Pt declined. States that her daughter performed this AM for her. OT ADL-Oral Care Comments Oral Care Comments Pt declined. States that her daughter performed this AM for her. OT ADL-Dressing Comments OT Dressing Comments Not performed OT ADL-Toileting Comments OT Toileting Comments Pt with valenzuela. No need for BM. OT ADL-Bathing Comments OT Bathing Comments Not performed. M6 OT- IP Functional Cognition Start: 01/24/19 16:03 Freq: Status: Active Protocol: Document 01/24/19 16:03 CGR (Rec: 01/24/19 17:00 CGR [id number]) Cognitive Factors Limiting Selfcare Function Cognitive Ability Level of Alertness Alert Patient Orientation Name Attention Span Ability Unable to Focus,Unable to Sustain Attention Ability to Follow Commands Able to Follow One Step Commands with Increased Time, Able to Follow One Step Commands with Repetition Cognitive Comments Cognitive Assessment Comments Pt would benefit from a formal cognitive assessment without family present. OT- Vision and Hearing OT- Hearing Assessment OT- Hearing Assessment WFL OT- Vision Assessment Vision Assessment Comments Unsure of glasses use. M7 OT- IP Mobility and Balance Start: 01/24/19 16:03 Freq: Status: Active Protocol: Document 01/24/19 16:03 CGR (Rec: 01/24/19 17:00 CGR [id number]) OT- Bed Mobility Assessment Supine to Sit Supine to Sit Assist Moderate Assistance,Maximum Assistance,1 Person Assistance Sit to Supine Sit to Supine Assist Maximum Assistance,1 Person Assistance Scooting Scooting to Edge of Bed Total Assistance Scooting Up and Down in Bed Total Assistance,2 Person Assistance OT-Transfer Assessment Comments Mobility Comments Pt declined sit to stand with 2 person assist d/t fear of falling. OT- Balance Assessment Sitting Balance and Reactions Static Sitting Balance Ability Poor M8 OT- IP Objective Assessments Start: 01/24/19 16:03 Freq: Status: Active Protocol: Document 01/24/19 16:03 CGR (Rec: 01/24/19 17:00 CGR [id number]) OT Gross Range of Motion Upper Extremity Range of Motion Assessment Bilaterally Impaired ROM Impairments R shld 0-80 L shld 0-90 OT Strength Upper Extremity Strength Assessment Bilaterally Impaired Comments Strength Comments 3+/5 throughout OT- Coordination Assessment Upper Extremity Finger to Nose Test Within Functional Limits Finger Tapping Test Within Functional Limits OT Sensation Assessment Comments Summary Comments Pt states typical sensation. Edema Edema Absent M9 OT- IP Assessment and Plan Start: 01/24/19 16:03 Freq: Status: Active Protocol: Document 01/24/19 16:03 CGR (Rec: 01/24/19 17:00 CGR [id number]) OT Summary Assessment and Plan Potential Rehabilitation Potential Fair Analytic Complexity at Evaluation Moderate Summary OT Impairments Range of Motion,Strength, Balance,Functional Cognition, Functional Mobility,Grooming, Dressing,Toileting,Bathing, Toilet Transfers,Shower Transfers Progress Towards Goals Slow Progress due to Activity Tolerance,Slow Progress due to Cognition Assessment Summary Pt presents as a moderate complexity evaluation. Pt recently was discharged home with family after admit to the hospital. Currently displays a decrease in sitting balance and perhaps endurance from her abilities when recently discharged. Pt may benefit from OT services to address new and preexisting declines in abilities. Recommend full cog assessment. Recommend d/c to SNF for safe discharge and progressing pt's abilities for returning home with family support. Goals Self-Feeding Goal Independent Grooming Goal Independent Dressing Goal Standby Assistance Days to Meet Goals 5 Frequency of Treatment Frequency Of Treatment Once a Day Treatment Plan OT Treatment Plan ADL Training,Functional Cognition Training,Functional Mobility,Patient/Family Education,Discharge Planning Discharge Recommendations OT Discharge Recommendations SNF Rehab Home Equipment Needs TBD
--- NOTE | 2019-01-24 17:22 | PC.NURSE ---
Addendum entered by Duyen Harvey R.N. 01/24/19 21:48: CT not done earlier as her IV went bad. Unable to restart PIV after multiple nurse attempts. Back to room. Midline placed by [facility]. Then was transferred to CT, CT done, patient then back to room. Patient requesting catheter be removed, she said it hurts. I discussed this with Dr Valle, new order to DC vlaenzuela which I did. also gave orders for me to check to see if patient's rectum was impacted with stool, and then give suppository. I could not feel any stool in rectum, suppository then placed. Miralax given. Original Note: Dr Valle in room to talk with patient & her spouse. Patient sent for CT scan via bed.
[2019-01-24] MEDS: HEPARIN 5,000 UNIT/ML VIAL 5000 UNIT SUBCUT (19:57)
[2019-01-24] MEDS: POLYETHYLENE GLYCOL 3350 17 GM POWD.PACK PO (19:58)
[2019-01-24] MEDS: BISACODYL 10 MG SUPP PR (19:58)
[2019-01-24] MEDS: DOCUSATE 100 MG CAPSULE PO (19:58)
[2019-01-24] MEDS: INSULIN ASPART 100 UNIT/ML INSULN PEN SUBCUT (21:03)
[2019-01-25] VITALS: BP 147/93; PULSE 111; RESP 18; TEMP 36.3; O2SAT 94
[2019-01-25 04:00] VITALS: BP 158/115; PULSE 75; RESP 16; TEMP 36.2; O2SAT 97
[2019-01-25 08:00] VITALS: BP 115/62; PULSE 104; RESP 18; TEMP 36.4; O2SAT 99
[2019-01-25 08:26] VITALS: O2SAT 99
[2019-01-25 08:38] LABS: Hemoglobin A1C% w Est Avg Glu 6.6 % (4.0-6.0)
[2019-01-25 08:40] LABS: Cholesterol 206 mg/dL (140-199); HDL Cholesterol 28 mg/dL (40-60); LDL Cholesterol Calculated 121 mg/dL (<100); Triglycerides 284 mg/dL (35-150)
--- NOTE | 2019-01-25 08:49 | CM.IDA ---
Initial DCP Assessment Note: Pt is an 83 yo female, resident of [facility]. Pt here under observation for CVA r/o. PCP: Earl Bacon Payer: [facility] Pt readmitted 01.24.19, this PIPE TESTING TECHNICIAN familiar w/pt from her prior obs stay, DC 01.22.19 home w/family and [facility] to follow up next week. Yesterday, had a lengthy conversation w/both dtr Lary alone, then w/ dtr and spouse Earl together, this PIPE TESTING TECHNICIAN asked questions about how pt and family feel it is going at home? Lary able to share w/this PIPE TESTING TECHNICIAN, earlier in the day w/o spouse present, that she and her Dad can not handle pt's care right now. In the last 6 months pt has declined, she has no interest in getting up from her bed and dtr Lary (who lives on their property) does all the residential care to include cleaning pt up when she wets or soils her bed (unable to get up to use BR). Lary feels optimistic that pt would get stronger w/ PT/OT at SNF and get back some of her PLOF. Lary shares that spouse has a lot going on and often gets focused on one detail, right now being pt's labile blood pressure. Lary had to argue w/Earl to call 911 and get pt taken back to the hospital when symptoms of stroke presented. In meeting w/pt's spouse Earl and dtr Lary in room together, Earl leads the conversation. He is very pleasant although tends to focus on getting pt's medications regulated rather than discussing the safe DCP. Earl continues to feel he can take pt home and dtr does not disagree w/him. Earl requires an upcoming heart surgery for an aortic aneurism but states to this PIPE TESTING TECHNICIAN I'm not getting any surgery until we get everything figured out for her (pt). This PIPE TESTING TECHNICIAN explained that [facility] had been contacted today and they agreed to take pt private payment, same agreement as , if Earl agreeable. Earl continues to be reluctant. This PIPE TESTING TECHNICIAN started to discuss pt's quality of life at home? Both dtr and spouse requested I speak to pt directly about activities of daily living, quality of life, and if it is working for her at home (?) Pt with advanced dementia, family lacks the insight to understand the severity of pt's disease process, effecting pt both functionally and cognitively. Pt may still benefit from ongoing therapies but her care needs have exceeded what is available at home unless 03/12 caregivers are hired. Reviewed all above w/Dr Valle this morning and she is hopeful Earl will come to a decision today because pt will be DC from the hospital. Dr Valle speaking w/dtr Lary this morning at bedside. This PIPE TESTING TECHNICIAN following closely. JANIE Mejias
--- NOTE | 2019-01-25 08:55 | DI.ECHO.S_ITS ---
[facility]---------+ [facility] +---------+ : : [address] [place] : : : : [id number] : : : : Phone: [phone]+ Echocardiogram Report + + :Name: NELLY PANCHAL Study Date: 01/25/2019 Height: 62 in : :[facility] Weight: 156 lb : : Gender: Female BSA: 1.7 m2 : :: 1935 Age: 83 yrs BP: 115/62 mmHg: :Reason For Study: TIA, new A-fib : :Ordering Physician: Saundra : :Hospitalist Performed By: Tiffanie Mane : :Referring: MARCUS CASTRO : + + Interpretation Summary 1) Mildly increased left ventricular thickness (concentric) with normal size, wall motion, and systolic function (EF 65-70%). 2) Grossly normal right ventricular size with mildly reduced function. 3) The left atrium is severely dilated. 4) Bioprosthetic aortic valve that is not well visualized but has mildly increased gradient (mean 24mmHg). The bioprosthetic aortic valve mean gradient was 35mmHg on Echo dated 10/25/2011. 5) There is mild perivalvular regurgitation around the prosthetic aortic valve. 6) There is a small right-sided pleural effusion. 7) Compared to the Echo done 10/25/2011, small right sided pleural effusion is present on this study. Procedure: A two-dimensional transthoracic echocardiogram with color flow and Doppler was performed. The study quality was technically difficult. Comparison is made with the echocardiogram of 10/25/2011. A saline contrast injection was performed to assess for cardiac shunting. A contrast injection of Definity was performed to improve assessment of LV function. The patient was in atrial fibrillation with heart rates between 70-110 bpm during the exam. Left Ventricle: Left ventricular wall thickness is mild-moderately increased. The left ventricular cavity is small. There is no ventricular septal defect visualized. There is no thrombus. The ejection fraction is estimated to be 65-70%. Diastolic function could not be accurately assessed due to atrial fibrillation. Right Ventricle: The right ventricle is grossly normal size. Right ventricular systolic function is mildly reduced. Atria: The left atrium is severely dilated. Right atrial size is normal. There is no Doppler or Bubble contrast evidence for an interatrial shunt; however, leftward septal shift was not acheived therefore a PFO cannot be entirely ruled out. Mitral Valve: The mitral valve leaflets are moderately calcified. There is moderate mitral annular calcification. There is trace mitral regurgitation. Aortic Valve: There is a bioprosthetic aortic valve. The prosthetic aortic valve is not well visualized. The prosthetic aortic valve is well-seated. There is mild perivalvular regurgitation around the prosthetic aortic valve. The peak aortic velocity is 3.3 m/sec. The aortic valve mean gradient is 24 mmHg. The calculated aortic valve area is 0.92 cm2. Tricuspid Valve: The tricuspid valve is not well visualized, but is grossly normal. There is a trace or physiologic amount of tricuspid regurgitation. Pulmonary artery pressures cannot be estimated because of the lack of a measurable TR jet velocity. Pulmonic Valve: The pulmonic valve is not well visualized. There is a trace or physiologic amount of pulmonic regurgitation. Great Vessels: The aortic root is normal size. The ascending aorta could not be visualized. The aortic arch could not be visualized. The IVC is of normal diameter and collapses greater than 50% with a sniff. This suggests a low right atrial pressure of 3 mm Hg. Pericardium/ Pleura There is no pericardial effusion. There is a small right-sided pleural effusion. MMode/2D Measurements & Calculations LVIDd: 3.6 cm LVOT diam: 1.9 cm LVIDs: 2.7 cm FS: 24.2 % EPSS: 0.40 cm IVSd: 1.4 cm LVPWd: 1.3 cm LV de la torre. diameter/BSA (cm/m^2): 2.1 LV sys. diameter/BSA (cm/m^2): 1.6 LA A2 area: 26.1 cm2 RA long axis: 5.1 cm LA A4 area: 24.5 cm2 RA area: 14.6 cm2 LA length (vol): 5.9 cm RA vol: 35.6 ml LA vol: 91.6 ml RA : 20.7 ml/m2 LA vol index: 53.2 ml/m2 IVC diam: 1.4 cm RVD1 (basal): 3.5 cm TAPSE: 1.0 cm Doppler Measurements & Calculations Ao V2 max: 332.8 cm/sec LVOT Max Geronimo: 122.0 cm/sec Ao V2 mean: 226.7 cm/sec LV V1 max P.0 mmHg Ao max P.4 mmHg LV V1 VTI: 20.2 cm Ao mean P.9 mmHg MILO(I,D): 0.92 cm2 Ao V2 VTI: 59.6 cm MILO(V,D): 0.99 cm2 sev ratio: 0.34 MILO indexed to BSA (cm^2/m^2): 0.53 AI P1/2t: 688.1 msec AI dec slope: 173.5 cm/sec2 Med Peak E' Geronimo: 2.8 cm/sec PA V2 max: 157.9 cm/sec Lat Peak E' Geronimo: 5.5 cm/sec PA V2 mean: 100.7 cm/sec MVA(VTI): 2.4 cm2 PA mean P.6 mmHg PA pr(Accel): 48.2 mmHg MV V2 mean: 71.9 cm/sec SV(LVOT): 54.6 ml MV mean P.4 mmHg MV V2 VTI: 22.9 cm Reading Physician:12:41 PM
--- NOTE | 2019-01-25 09:00 | PM.DS.1 ---
History of Present Illness History of Present Illness Chief complaint: Altered mental status Narrative: Written by myself Dr. Valle: Mary Casiano is an 83-year-old female with a past medical history significant for hypertension, chronic atrial fibrillation, history of polio, prior CVA and malignant melanoma who was recently hospitalized within the last 48 hours for altered mental status and came back to the ED with slurred speech and left-sided facial droop and concern for stroke. The patient has advanced dementia at baseline and her daughter and act as primary historians. The patient's daughter reports that yesterday afternoon she noticed that her mother was slurring her words and had left sided facial droop. Of note, the patient's does report that he notices if the patient becomes fatigued she has more trouble with her speech and has left-sided facial droop. They have also noticed sundowning behaviors in the evening related to her advanced dementia. She has profound generalized weakness and is unable to walk and has been wheelchair and bed-bound. The patient's weakness continues to be progressive and the family feels that right side is slightly weaker and something has changed. The patient's symptoms have improved/resolved since onset. The patient has no focal neurological deficits. The patient lives with her elderly at home. There is concern that the patient is not well taken care of at home but her and DPOA is resistant to halfway facility for rehabilitation versus long-term care. The patient is lying in bed and in no acute distress. She denies headache, chest pain, shortness of breath, abdominal pain, nausea, vomiting, fever, chills, dysuria, diarrhea constipation. She had a Celestin catheter inserted for decreased mobility. The patient is significantly withdrawn and communicates very little likely due to her advanced dementia. The patient is admitted for observation and to rule out CVA. Discharge Providers Provider Date of admission: 01/24/19 01:38 Discharge Date: 01/25/19 Primary care physician: Earl Bacon MD Consults: 01/24/19 09:48 Consult to Occupational Therapy Evaluate & Treat Comment: Physician Instructions: Evaluate and treat Consult to Physical Therapy Evaluate & Treat Comment: Physician Instructions: Evaluate and Treat 01/24/19 11:11 Consult to Physical Therapy Evaluate & Treat Comment: generalized weaknessa and debility Physician Instructions: Evaluate and Treat 01/24/19 11:12 Consult to Occupational Therapy Evaluate & Treat Comment: diminished ability to partake in ADLs Physician Instructions: Evaluate and treat Consult to Claims Configuration Analyst Routine Comment: SNF, family unable to care, unsafe to return home Discharge provider: Agnes Valle DO Summary Hospital Course Discharge Diagnosis: 1. Left-sided facial droop and slurred speech, possibly TIA versus chronic deficit, present on admission. Intermittent and resolved. 2. Chronic deconditioning with profound generalized weakness, present on admission. Active. 3. Advanced dementia, likely vascular, chronic, present on admission. Stable. 4. Hypertension, chronic, present on admission. Stable. 5. Chronic atrial fibrillation, present on admission. Stable. 6. 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 Stable. 7. Diabetes mellitus type 2, insulin using, chronic, present on admission. Stable. Hospital Course: Mary Casiano is an 83-year-old female with a past medical history significant for hypertension, chronic atrial fibrillation, history of polio, prior CVA and malignant melanoma who was recently hospitalized within the last 48 hours for altered mental status and came back to the ED with slurred speech and left-sided facial droop and concern for stroke. 1. Left-sided facial droop and slurred speech, possibly TIA versus chronic deficit, present on admission. Resolved. -Patient developed left-sided facial droop and slurred speech yesterday evening. Patients reports that as the patient fatigues he has noticed this in the past. Patient also has had slightly worse right-sided weakness compared to left. Patient admitted for CVA rule out. -CT brain without contrast did not demonstrate any acute intracranial abnormalities. Of note, the patient has chronic left cerebellar hemisphere lacunar infarct and moderate cerebral volume loss with resultant ventricular and sulcal prominence and moderate periventricular and deep white matter chronic small vessel ischemic changes consistent with her advanced dementia. -Unclear if patient can undergo MRI due to multiple surgical clips in neck for ICA. -CTA head and neck demonstrated no evidence of new acute intracranial edema, chronic moderate irregularity of the left M1 segment of the middle cerebral artery without occlusion, and stable bilateral proximal ICA stenoses, estimated to be between 50-69% left and 50% on the right. -Continued frequent neuro checks every 4 hours. NIH score 4. -Continued to monitor closely on telemetry. Chronic atrial fibrillation with PVC otherwise no ectopy. -Continued aspirin 81 mg daily. -Echocardiogram did not definitively demonstrate embolic source. -Risk stratified with hemoglobin A1c which was 6.6% indicative of good glycemic control and fasting lipid panel which was significantly uncontrolled and demonstrated: Fasting lipid panel demonstrated total cholesterol 206, triglycerides 284, LDL 121, and HDL 28. Did not initiate statin therapy as patient is elderly and relatively contraindicated especially with degree of debility and generalized weakness. -TSH normal at 1.88. -Allowed for permissive hypertension for 24 hours. Ordered labetalol 10 mg every 6 hours as needed for SBP > 180 mmHg sustained for 15 minutes. -Continued physical and occupational therapy evaluation treatment. 2. Chronic deconditioning with profound generalized weakness, present on admission. Active. -Patient's daughter has concern that the patient is not receiving adequate care at home. Patient's is DPOA and has aversio to halfway facility for rehabilitation and prefers to take the patient home. Had family care conference and the patient's requested time to discuss with his a trial of rehabilitation at halfway facility versus at home home versus reopening with hospice prior to committing to a decision.Patient is profoundly weak and debilitated without focal neurological deficit. Concern for failure to thrive and inadvertent neglect as patient required substantial amount of care that family is unable to provide. Recommended halfway facility for trial of rehabilitation however, has strong opposition to nursing facilities and decided to take her home. Patient's family arranging for rehabilitation at home. If patient fails rehabilitation attempt at home would recommend hospice. Highly recommended BLS for safe transport home, however, adamant and verbally insulting that he can take her home and lift her on his own which is against my medical advice. -Continued physical and occupational therapy evaluation treatment who recommends halfway facility for trial of rehabilitation. 3. Advanced dementia, likely vascular, chronic, present on admission. Stable. -Patient has reported sundowning behaviors with increased confusion in the evenings. -Previous SLUMS score +6/30 performed by occupational therapy. -CT brain moderate in cerebral volume loss with resultant ventricular and sulcal prominence and moderate periventricular and deep white matter chronic small vessel ischemic changes consistent with her advanced dementia. -Continued to reorient often. Patient is pleasant without behavioral disturbance. 4. Hypertension, chronic, present on admission. Stable. -Allowed for permissive hypertension for 24 hours. Ordered labetalol 10 mg every 6 hours as needed for SBP > 180 mmHg sustained for 15 minutes. -Continued lisinopril 40 mg daily. If requiring additional blood pressure control may consider amlodipine versus low-dose metoprolol tartrate (would provide rate control). 5. Chronic atrial fibrillation, present on admission. Stable. -Currently rate controlled and not on rate control medication. Could consider low-dose metoprolol tartrate if needed for rate control. 6. 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 Stable. -Continued aspirin 81 mg daily and furosemide 20 mg daily. -Mildly increased left ventricular thickness (concentric) with normal size, wall motion, and systolic function (EF 65-70%), grossly normal right ventricular size with mildly reduced function, left atrium is severely dilated, bioprosthetic aortic valve that is not well visualized but has mildly increased gradient (mean 24mmHg) compared to 35mmHg on Echo dated 10/25/2011, mild perivalvular regurgitation around the prosthetic aortic valve and small right-sided pleural effusion. 7. Diabetes mellitus type 2, insulin using, chronic, present on admission. Stable. -Hemoglobin A1c 6.6% indicative of good glycemic control. -Continued [facility] blood glucose checks and low-dose correctional scale insulin. -Continued heart healthy/carbohydrate consistent diet. -Discontinued NPH due to risk of hypoglycemia as patient's blood glucose is well controlled. Recommended continued diet control only. Exam Vital Signs (past 8 hours): - 01/25/19 04:00 01/25/19 08:00 01/25/19 08:26 Temperature 97.2 F L 97.6 F Pulse Rate 75 104 H Respiratory Rate 16 18 Blood Pressure 158/115 H 115/62 Pulse Oximetry 97 99 99 Oxygen Delivery Method Room Air Oxygen Flow Rate 0 Narrative Exam Narrative: General: Elderly female lying in bed and in no acute distress, well-developed, well-nourished, significantly withdrawn and communicates very little likely due to advanced dementia, answers questions with yes and no only and unable to converse. HEENT: Normocephalic, atraumatic. External ears without defect. Pupils equal, round, and reactive to light. Anicteric sclerae, moist conjunctivae, and no lid lag. Oropharynx free of erythema and cobble stoning with moist mucosa. No facial droop. Neck: Supple with full range of motion. No jugular venous distension. No lymphadenopathy or thyromegaly. Cardiovascular: Irregularly irregular without murmurs, rubs, or gallops appreciated. Pulmonary: Clear to auscultation bilaterally without crackles, wheezes, or rhonchi. Normal respiratory effort with no use of accessory muscles. Abdomen: Soft, bowel sounds present, nontender, nondistended. No hepatosplenomegaly or masses appreciated. Extremities: No clubbing, cyanosis, or edema. Skin: Normal temperature, turgor, and texture; no rash, ulcers, or subcutaneous nodules appreciated. Neurological: Cranial nerves grossly intact. Profound debility with generalized weakness bilaterally in upper and lower extremities with right slightly worse than left and MS + 2/5. Speech does not appear slurred. No facial droop. No focal neurological deficits. Psychiatric: Significantly withdrawn, only speaks when asked questions and answers with yes and no only, unable to converse, advanced dementia at baseline. Objective Labs Result Diagrams: 01/23/19 23:53 01/23/19 23:53 Labs: Laboratory Results - last 24 hr 01/25/19 01/25/19 08:18 08:18 Hemoglobin A1c 6.6 H Triglycerides 284 H Cholesterol 206 H LDL Cholesterol, Calc 121 H HDL Cholesterol 28 L Discharge Plan Discharge Plan Patient Disposition: Hospice - Home Discharge comment: You are being discharged home with recommendation to reopen with hospice due to her advanced dementia and keeping her quality of life the best it may be and her as comfortable as possible. My medical advice is to transport her home in an ambulance as this is the safest way to get her home due to her significant weakness and inability to sit up. You have kindly declined which is your right but you have been made aware of the risks including injury to her or yourself. Also my medical advice is to have 24/7 around the clock nursing care as she requires a significant amount of care that you and your family are unable to provide on your own. Continue all her medications as previously prescribed other than insulin as she no longer requires this and her diabetes can be diet controlled. In addition, I have added Colace and MiraLax for a bowel regimen to keep her from being constipated. Please follow-up with her primary care physician Dr. Bacon in the next 3-5 days regarding her hospitalization. Discharge Med Rec/Prescriptions Prescriptions: New polyethylene glycol 3350 17 gram Powder In Packet 17 gm PO DAILY Qty: 1 RF: 0 docusate sodium [DOK] 100 mg Capsule 100 mg PO BID Qty: 60 RF: 0 Continued furosemide 20 mg tablet 20 mg PO DAILY RF: 0 aspirin 81 mg Tablet,Delayed Release (Dr/Ec) 81 mg PO DAILY 30 Days Qty: 30 RF: 0 lisinopril 40 mg tablet 40 mg PO DAILY 30 Days Qty: 30 RF: 0 acetaminophen 325 mg capsule 650 mg PO Q4H PRN (Reason: pain) Qty: 0 RF: 0 Discontinued [HUMULIN N] 10 u SQ QDAY Qty: 0 RF: 0 coenzyme Q10 10 mg capsule 10 mg PO ONCE RF: 0 Follow up/Referrals: Earl Bacon MD [Primary Care Provider] - Discharge Orders: Discharge (Order); Ordered 01/25/19 Ordered By: Agnes Valle Provider Discharge Instructions Diet: Diet as Tolerated, Carb-consistent/Diabetic, Low-fat, Low-sodium and Low-cholesterol Activity: Activity only with nursing and physical/occupational therapies Visit Report/Discharge Packet Instructions: End of Life Care, DI for Transient Ischemic Attack Discharge Data Primary Care Provider: Earl Bacon Attending Provider: Tho Villeda Admit Date/Time: 01/24/19 01:38 Discharges patient from system. Discharge Date/Time: 01/25/19 15:00 Quality VTE Deep Vein Thrombosis/Pulmonary Embolism Present on Admission: Yes
[2019-01-25] MEDS: ASPIRIN EC 81 MG TABLET PO (09:58)
[2019-01-25] MEDS: DOCUSATE 100 MG CAPSULE PO (09:58)
[2019-01-25] MEDS: FUROSEMIDE 20 MG TABLET PO (09:58)
[2019-01-25] MEDS: LISINOPRIL 20 MG TABLET 40 MG PO (09:58)
[2019-01-25] MEDS: HEPARIN 5,000 UNIT/ML VIAL 5000 UNIT SUBCUT (09:58)
[2019-01-25] MEDS: INSULIN ASPART 100 UNIT/ML INSULN PEN SUBCUT (10:03)
[2019-01-25 12:00] VITALS: PULSE 88; RESP 18; TEMP 37; O2SAT 98
--- NOTE | 2019-01-25 12:21 | PT.IPTN ---
Physical Therapy Treatment Note M2 PT-IP Current Condition Start: 01/24/19 16:04 Freq: NEEDED Status: Active Protocol: Document 01/24/19 16:02 DLM (Rec: 01/24/19 17:04 DLM [id number]) Physical Therapy Current Condition Current Condition Evaluation Date 01/24/19 Treatment Diagnosis weakness, impaired mobility Onset Date 01/24/19 M3 PT-IP Subjective Start: 01/24/19 16:04 Freq: NEEDED Status: Active Protocol: Document 01/25/19 12:08 AW (Rec: 01/25/19 12:19 AW [id number]) Subjective Physical Therapy Visit Type Type Treatment Note Visit Start Time 11:33 Visit Stop Time 11:53 Total Visit Minutes 20 Number of HOSPITALITY SERVICES MANAGER Visits 0 Physical Therapy Visit Comments Patient Comments Pt's and daughter visiting in room. Patient Goals Family insist they are taking her home today. Therapy Pain Assessment Pain When Pain Assessed At Rest Pain Present Pain Present Denied Pain M4 PT-IP Mobility and Gait Start: 01/24/19 16:04 Freq: NEEDED Status: Active Protocol: Document 01/25/19 12:08 AW (Rec: 01/25/19 12:19 AW [id number]) PT-Bed Mobility Assessment Rolling Type of Rolling Roll to Left Level of Assist Moderate Assistance,Maximal Assistance Supine to Sit Supine to Sit Moderate Assistance,Maximum Assistance Sit to Supine Sit to Supine Maximum Assistance Scooting Scooting to Edge of Bed Maximum Assistance PT-Transfer Assessment Comments Mobility Comments Pt unable to support herself at edge of bed. Therapist provided verbal and tactile cues for pt to support herself with arms while attempting to sit, but she required mod to max assist to maintain upright sitting posture. Without therapist support, pt falls backward Gait Assessment Comments Gait Comments Pt unable at baseline for past 8 months PT-Balance Assessment Sitting Balance and Reactions Static Sitting Balance Ability Poor Dynamic Sitting Balance Ability Poor M5 PT-IP Objective Assessments Start: 01/24/19 16:04 Freq: NEEDED Status: Active Protocol: Document 01/24/19 16:02 DLM (Rec: 01/24/19 17:04 DLM [id number]) Orientation Orientation/Cognition Level of Alertness Alert Orientation Name Safety Awareness Understands Safety Issues Comments limited verbalizations, pt able to answer specific questions when asked, pt often nods head or grunts in response to simple questions, family reports intermittent garbled speech Gross Range of Motion Upper Extremity ROM Assessment Bilaterally Impaired Impairments right shoulder flexion 80 degrees and left 90 degrees Lower Extremity ROM Assessment Within Functional Limits Strength Upper Extremity Strength Assessment Bilaterally Impaired Shoulder 3+/5 Elbow 3+/5 Wrist 3+/5 Hand 3+/5 Lower Extremity Strength Assessment Bilaterally Impaired Hip flexion 2+/5 Knee knee ext 3+/5 Ankle DF 3+/5 Comments Strength Comments no focal strength deficits noted, mild drooling noted with pt aware and wiping at her mouth Coordination Assessment Gross Coordination Gross Coordination WNL Sensation Assessment Sensation Gross Sensation WNL Muscle Tone Muscle Tone WNL Yes M7 PT-IP Assessment and Plan Start: 01/24/19 16:04 Freq: NEEDED Status: Active Protocol: Document 01/25/19 12:08 AW (Rec: 01/25/19 12:19 AW [id number]) PT Summary Assessment and Plan Potential Rehabilitation Potential Fair Status of Condition at Evaluation Evolving Summary Impairments ROM,Strength,Balance,Bed Mobility,Transfers,Gait, Activity Tolerance Assessment Summary Pt continues to be a good candidate for SNF rehab at discharge to help with increasing her strength and ability to participate in her own care. Even a small improvement in her ability to stand and transfer would assist with care at home. Goals Bed Mobility Goal Moderate Assistance Transfer Goal Moderate Assistance,Maximal Assistance Other Goals Sit edge of bed with SBA x 10 min. Frequency of Treatment Frequency Of Treatment Twice a Day Treatment Plan Physical Therapy Treatment Plan Bed Mobility Training,Transfer Training,Therapeutic Exercise ,Balance Retraining, Neuromuscular Re-ed Other Recommendations and Next Treatment unsupported sitting EOB Focus Recommendations To Nursing Amount of Assist Needed 2 Person Assist Discharge Recommendations PT Discharge Recommendations SNF Rehab
[2019-01-25 13:02] VITALS: O2SAT 98
--- NOTE | 2019-01-25 14:43 | CM.DPNOTE ---
Addendum entered by Kathryn Draper MSW 01/25/19 15:07: SNF request denied per Maria L at [facility] P# [phone] Original Note: DCP Cont: Faxed clinical to [facility] for review of SNF auth this morning, denial expected although [facility] will need the denial if they are to bill family privately. Spoke w/pt's spouse Earl and dtr Lary multiple times throughout the day. MD and PT continue to strongly recommend SNF stay today and [facility] agreeable to accepting pt under private payment, family state they are trying to make a decision. This afternoon, had the final lengthy conversation w/spouse Earl and dtr Lary, explained that this CONVEYOR TENDER, therapy staff and MD continue to feel taking pt home w/o increased support is not a safe option. Family explain they have decided to take pt home today since she is being DC and they have arranged [place] to care [place] in addition to multiple family members coming to assist this week. Family requests [facility] be resumed. Spouse is not interested in Hospice at this time. Family reiterate to this CONVEYOR TENDER multiple times that they have hope pt will improve and they can Hospice once home if needed, they have the information at home. Both spouse and dtr deny the need for this CONVEYOR TENDER to assist in any way today despite strong encouragement to allow assist w/arranging cgs for tonight and arranging safe transport home via BLS. This CONVEYOR TENDER explained that BLS could be arranged but it would be an out of pocket expense. Had another lengthy conversation about home via pov and BLS. Once again warned Earl and Lary that transporting home via pov would put strain on pt and on them, asked if they could safely get pt home, into bed, w/o physical support once home? Earl admits to this CONVEYOR TENDER that money is not the issue and says he would like to take his home in their car and stop at their newly purchased boat slip before they return home. Updated staff on pt's family's decision and agreement still from nursing staff, MD, therapy staff and this CONVEYOR TENDER that home via pov is not the safest option since pt requiring max assist x2 but family has made their decision and they have every right to disagree w/our recommendation. Placed call to [facility] w/ [facility] to alert pt was returning home and family was hopeful HH could be resumed. JANIE Mejias
--- NOTE | 2019-01-25 15:13 | PC.NURSE ---
Discharge Pt a/ox1-2. She is incontinent of urine and stool. requires 2 person assist for changing. and daughter are primary caregivers for pt at home on [facility]. Discussion with pt's daughter and Dr Valle. She is 2nd DPOA behind her father, pt's . This long discussion was about the care for her mother, daughter states that her father has provided daughter with a bank act he does not have control over to help with care for her mother. In this meeting she agrees that pt should go home and admit to hospice as opposed to trialing rehab in a SNF. Pt agrees transport home should be by BLS and agrees that she can pay the bill out of this bank act. Daughter states she is not capable of caring for her mother anymore for rodent exterminator as she is having problems with her own health. Daughter states she can tell her dad that she needs help and pt needs to go home via BLS. Pt asks for time to talk to her dad alone which was provided. Returned to room after daughter and had talked, plan is that wants to take pt home in his car. He will not have BLS take her home, not because of the money but because of principle. He thinks insurance should pay for trip and not him. Offers several times that if MD places order for pt to take BLS home he will allow it. Verified with PRIMARY CARE MD that no such order exists for ambulance transport. was polite however very inflexible. States pt does not need hospice, she will get better. He knows when it will be time to ask for hospice and now is not the time. States that he takes her for drives every other day in his car and can get her in and out. States he has a medical condition with his aorta but it's suggested and not required that he have it fixed. When having discussion with pt's , daughter throws herself on the window seat and starts crying hysterically. is clearly in love with his and appears to be having a hard time accepting her illness. explained to him that his daughter needs help as she can't keep doing all the care, Daughter then looks up and says I've never complained, i can do it in complete opposition to what she had said alone earlier. Encouraged to ensure he has W[employer]/ROBERTO at home for pt 24 hrs a day to care for her and have therapy there as welll if that's his request. states he is in the process of looking for help. states he has lots of supplies at home, he has a selene and sling there and originally states he knows how to use it. When asked where he learned how to use it he was unable to explain. Offered to show him how to use the selene and where to place sling and hook it up, he was very appreciative. He watched and asked questions. when it was done he said thank you so much, now we know how to use the lift at home. Dr Valle, PT, nursing staff, and PRIMARY CARE MD all explained to that taking her home by car was not a safe plan and we all strongly recommended she go home via BLS. will not change his mind about transport home. States she is at her baseline of not being able to support her core and she always goes in the car at home. 2 RN placed pt in sling and used ceiling lift to put her in w/c. PT and COSMETIC CHEMIST went with RNs to car and insisted on picking pt up and pivoting her to the car. would not let anyone else do the lifting. COSMETIC CHEMIST in car to help support pt for transfer. Pt placed safely in car and seat belt applied. d/c instructions provided to , DPOA. aware to make apt with PCP for 3-5 days. Pt took all belongings with her.
--- NOTE | 2019-01-25 15:49 | PT-IP ANOTE ---
PT escorted pt to her car at discharge along with [employer], 2 RN's and pt's spouse. Spouse completed a max assist transfer wheelchair to pt's car with AUT[employer] DRIVER assisting from inside the car. Pt was left safely buckled with vehicle restraint. Spouse planned to drive pt to the [facility] for return to home.
== END 2019-01-25 15:00 | disposition hospice, home (50) ==
LOC: ED 01-24 00:49 → AC 01-24 06:44
PROVIDERS: Internal Medicine; Admitting Provider Nurse Practitioner Gerontology; Emergency Provider Emergency Medicine; PCP Family Medicine; Visit Provider Nurse Practitioner Gerontology
DX: R29.810 Facial weakness (principal); R53.1 Weakness; R41.82 Altered mental status, unspecified; I10 Essential (primary) hypertension; I48.2 Chronic atrial fibrillation; E11.9 Type 2 diabetes mellitus without complications; Z79.4 Long term (current) use of insulin; I25.10 Atherosclerotic heart disease of native coronary artery without angina pectoris; Z95.1 Presence of aortocoronary bypass graft; F03.90 Unspecified dementia, unspecified severity, without behavioral disturbance, psychotic disturbance, mood disturbance, and anxiety; R47.81 Slurred speech; Z86.73 Personal history of transient ischemic attack (TIA), and cerebral infarction without residual deficits
CPT/HCPCS: 36569; 36591; 51701; 70450; 70496; 70498; 80053; 80061; 80305; 80320; 80329; 81001; 81003; 82140; 82962; 83036; 83605; 83690; 83735; 84100; 84145; 84443; 84484; 85025; 85610; 85730; 93306; 96360; 97162; 97166; 97530; 99283; 99284; G0378; G0480; J1644; Q9957; Q9967